=== PATIENT | male | born 1950 | race Caucasian/White ===

== ENCOUNTER 2020-07-02 14:26 | Outpatient (CLI) | payer MEDICARE, OTHER, SELFPAY ==
--- NOTE | 2020-07-02 | ECG_ITS ---
Measurements Intervals [place] Rate: 64 P: 41 [place]: 148 QRS: -9 QRSD: 96 T: 0 QT: 426 QTc: 442 Interpretive Statements SINUS RHYTHM ATRIAL AND VENTRICULAR PREMATURE COMPLEXES DELAYED PRECORDIAL R/S TRANSITION BORDERLINE ST-T WAVE ABNORMALITY- INFERIOR LEADS BASELINE ARTIFACT- I, II, AVL, AVF BORDERLINE ECG Electronically Signed On 07-02-2020 14:47:52 CDT by Marcelino Barba D.O.
== END 2020-07-02 14:27 | disposition home or self-care (01) ==
LOC: ANHLAB 14:30 → ANHCARD 14:31
PROVIDERS: PCP Physician Assistant; Visit Provider Podiatrist Foot & Ankle Surgery
DX: R03.0 Elevated blood-pressure reading, without diagnosis of hypertension (principal); R94.31 Abnormal electrocardiogram [ECG] [EKG]
CPT/HCPCS: 93005

== ENCOUNTER 2020-11-22 08:30 | Emergency (ER) | payer MEDICARE, OTHER, SELFPAY ==
--- NOTE | ~2020-11-22 | XR_ITS ---
EXAMINATION: XR hip RT min 3V w AP pelvis INDICATION: Right hip pain, initial encounter TECHNIQUE: AP view of the pelvis and two views of the right hip are obtained on five radiographs. COMPARISON: None available FINDINGS: There is a fracture of the right acetabulum which appears to extend to the sacroiliac joint . There is approximately 1.7 cm of widening fracture fragments. There is a fracture of the right infe rior pubic ramus. There are phleboliths of the pelvis. 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 IMPRESSION: 1. Right acetabular and inferior pubic ramus fractures. Reviewed, dictated and finalized at location A.
--- NOTE | ~2020-11-22 | CT_ITS ---
EXAMINATION: CT brain wo con INDICATION: Head injury COMPARISON: None TECHNIQUE: Standard unenhanced head CT. The dose-length product (DLP) was 681.00 mGy-cm. The mA was a djusted according to patient size. Iterative reconstruction technique was employed. FINDINGS: There is no acute intraparenchymal hemorrhage. No evidence of mass lesion. No evidence of a cute infarction. There is mild periventricular and subcortical hypodensity probably related to small vessel ischemic disease. There is mild prominence of the sulci and ventricles related to cerebral atr ophy. Intracranial calcified cerebral atherosclerosis is noted. There are no extra-axial collections. There is no mass effect or midline shift. The orbits are unremarkable. There is a right frontal scal p laceration. The visualized sinuses and mastoid air cells are well aerated. IMPRESSION: 1. Right frontal scalp laceration without acute intracranial abnormality. 2. Age related findings. Reviewed, dictated and finalized at location A.
[2020-11-22 08:30] VITALS: BP 103/69; PULSE 87; RESP 20; TEMP 36.8; O2SAT 100
[2020-11-22 09:32] VITALS: BP 97/63; PULSE 89; RESP 20; O2SAT 99
[2020-11-22 10:34] VITALS: BP 108/77; PULSE 89; RESP 20; O2SAT 99
--- NOTE | 2020-11-22 10:48 | ED.GENADULT ---
HPI - General Adult General Chief complaint: Fall Stated complaint: etoh, fall, laceration Time Seen by Provider: 11/22/20 10:09 Source: patient Mode of arrival: ambulatory Limitations: no limitations History of Present Illness HPI narrative: Patient presents for evaluation after experiencing a fall at approximately midnight going into today. He states he slipped on wooden steps in his home, falling approximately 8 steps. He did hit his head. No loss of consciousness. Not on blood thinners. No vomiting since episode. He had two shots of ETOH prior to the fall. Reports lacerations to the right side of the scalp and right side of the forehead. Reports pain in the right hip. At rest pain is 5 out of 10 in severity however with movement pain increases to 10/10 in severity. He is unable to bear weight or ambulate. No radicular component. No paresthesias. Related Data Home Medications Medication Instructions Recorded Confirmed bisoprolol-hydrochlorothiazide 1 tablet PO DAILY 11/22/20 11/22/20 latanoprost 1 drp EACH EYE DAILY 11/22/20 11/22/20 losartan 50 mg PO DAILY 11/22/20 11/22/20 simvastatin 20 mg PO HS 11/22/20 11/22/20 Allergies Allergy/AdvReac Type Severity Reaction Status Date / Time No Known Allergies Allergy Verified 11/22/20 08:34 Review of Systems Review of Systems: CONSTITUTIONAL: Denies fever, chills, or sweats. EYES: Denies visual changes, redness, or discharge. ENT: Denies rhinorrhea, congestion, sore throat, or otalgia. CARDIOVASCULAR: Denies chest pain, palpitations, or edema. RESPIRATORY: Denies cough or dyspnea. GASTROINTESTINAL: Denies abdominal pain, nausea, vomiting, or diarrhea. GENITOURINARY: Denies dysuria or hematuria. SKIN: Reports laceration to right side of the forehead. Reports laceration to scalp. Denies rash or itching. MUSCULOSKELETAL: Reports right hip pain and right pelvic pain. Denies back pain or myalgia. NEUROLOGIC: Denies headache, numbness, dizziness, or weakness. PSYCHIATRIC: Denies anxiety or depression. [facility] Past Medical History Medical History (Updated 11/22/20 @ 12:22 by Bud Johnson, [employer]IDENCE LEASING AGENT, ) Hyperlipidemia Hypertension Surgical History Surgical History Status post left foot surgery Family History Family History (Updated 11/22/20 @ 10:50 by Bud Johnson, [facility], ) Mother No pertinent past medical history Social History Social History Substance use: never Living arrangements: with family Gender identity (if verbalized by the patient): Male Sexual Orientation (if Verbalized by the Patient): Straight or Heterosexual Spiritual care concerns: No Exam Narrative: GENERAL: Well-appearing, well-nourished, and in no acute distress. HEAD: Normocephalic EYES: PERRLA and EOMI. ENT: Nares clear, no rhinorrhea or epistaxis. Mucous membranes moist. Oropharynx without tonsillar hypertrophy exudate or other lesions. Bilateral TMs pearly tobar nonbulging NECK: Supple. No adenopathy or masses. No carotid bruits or JVD CHEST: Clear to auscultation. No respiratory distress. No wheezes rales or rhonchi HEART: Regular rate and rhythm. No murmur heard. Normal peripheral pulses. ABDOMEN: Soft, nontender, nondistended, normal active bowel sounds. EXTREMITIES: Tenderness over right lateral hip and right anterior/posterior pelvis. Decreased active ROM of right hip. Decreased ability to tolerate passive ROM of right hip 2/2 pain. SKIN: Approximately 1.5 cm laceration to the right frontal region of the scalp and a jagged formation. Scant amount of sanguinous drainage present. Approximately 2.5 cm linear laceration to right supraorbital region-bleeding controlled with dried sanguinous drainage present. Warm, dry, no rash. NEURO: No focal deficits. Alert and oriented x3. PSYCH: Normal mood and affect. Course Course Emergency Course:
[2020-11-22] MEDS: oxyCODONE/ACETAMINOPHEN (*CRX) 5-325 MG TABLET 2 TABLET PO (11:02)
[2020-11-22] MEDS: TETANUS,DIPHTHERIA,AC PERTUSSIS ADULT (0.5 ML) BOOSTRIX IM (11:03)
--- NOTE | 2020-11-22 12:22 | PC.NURSE ---
made contact with [facility] to transfer pt to [facility]. company accepted with in route eta
[2020-11-22 12:31] VITALS: BP 92/74; PULSE 88; RESP 16; TEMP 37.2; O2SAT 98
--- NOTE | 2020-11-22 12:55 | PC.NURSE ---
angelika has arrived and crew is aware that pt is going to [facility]
[2020-11-22 12:58] VITALS: BP 92/74; PULSE 88; RESP 16; O2SAT 100
== END 2020-11-22 12:59 | disposition short-term general hospital (02) ==
PROVIDERS: Emergency Provider Nurse Practitioner; PCP Physician Assistant
DX: S01.01XA Laceration without foreign body of scalp, initial encounter (principal); S01.81XA Laceration without foreign body of other part of head, initial encounter; S32.401A Unspecified fracture of right acetabulum, initial encounter for closed fracture; S32.591A Other specified fracture of right pubis, initial encounter for closed fracture; E78.5 Hyperlipidemia, unspecified; I10 Essential (primary) hypertension; Z23 Encounter for immunization; W01.0XXA Fall on same level from slipping, tripping and stumbling without subsequent striking against object, initial encounter; Y92.009 Unspecified place in unspecified non-institutional (private) residence as the place of occurrence of the external cause
CPT/HCPCS: 12001; 70450; 73502; 90471; 90715; 99285; A9270

== ENCOUNTER 2022-03-29 15:00 | Emergency (ER) | payer MEDICARE, OTHER, SELFPAY ==
--- NOTE | ~2022-03-29 | XR_ITS ---
Portable chest x-ray Comparison: None Clinical History: PICC line placement Findings: Right-sided PICC line in place, tip in the SVC. Lungs are clear. No consolidation, effusio n, or pneumothorax. Cardiomediastinal silhouette is unremarkable. Bones and soft tissues are unremar kable. Impression: Right-sided PICC line in satisfactory position. Clear lungs. Reviewed, dictated and finalized at location . PRESS DEVELOPER Impression: Right-sided PICC line in satisfactory position. Clear lungs.
[2022-03-29 15:32] VITALS: BP 135/54; PULSE 77; RESP 20; TEMP 36.7; O2SAT 97
--- NOTE | 2022-03-29 15:46 | ED.GENADULT ---
HPI - General Adult General Chief complaint: Unspecified Stated complaint: PICC line clogged Time Seen by Provider: 03/29/22 15:34 History of Present Illness HPI narrative: Patient is a 72-year-old male presenting with a clogged PICC line. Patient states that he has a PICC line in place for IV antibiotics. States that he needs to have a hip replacement but he was found to have a joint infection so an antibiotic spacer was placed and he was discharged home last week for IV antibiotics. States that this morning when he went to flush his PICC line he was unable to so he came in for evaluation. He denies any pain or complaints at this time. Related Data Home Medications Medication Instructions Recorded Confirmed bisoprolol 2.5 1 tablet PO DAILY 11/22/20 11/22/20 mg-hydrochlorothiazide 6.25 mg tablet latanoprost 0.005 % eye drops 1 drp EACH EYE DAILY 11/22/20 11/22/20 losartan 50 mg tablet 50 mg PO DAILY 11/22/20 11/22/20 simvastatin 20 mg tablet 20 mg PO HS 11/22/20 11/22/20 Allergies Allergy/AdvReac Type Severity Reaction Status Date / Time No Known Allergies Allergy Verified 11/22/20 08:34 Review of Systems Review of Systems: All systems reviewed & are unremarkable except as noted in HPI and below PMFSH Past Medical History Medical History Hyperlipidemia Hypertension Surgical History Surgical History Status post left foot surgery Family History Family History Mother No pertinent past medical history Social History Social History Substance use: never Gender identity (if verbalized by the patient): Male Sexual Orientation (if Verbalized by the Patient): Straight or Heterosexual Spiritual care concerns: No Exam Narrative: GENERAL: Well-appearing, well-nourished, and in no acute distress. HEAD: Normocephalic, atraumatic. EYES: PERRLA and EOMI. ENT: Nares clear, no rhinorrhea or epistaxis. Mucous membranes moist. NECK: Supple. CHEST: No respiratory distress. HEART: Regular rate and rhythm. Normal peripheral pulses. ABDOMEN: Soft, nontender, nondistended, normal active bowel sounds. EXTREMITIES: Normal range of motion. No edema. single-lumen PICC line in place right upper extremity, draws blood easily, unable to flush. Radial pulses 2+ bilaterally SKIN: Warm, dry, no rash. NEURO: No focal deficits. Alert and oriented x3. PSYCH: Normal mood and affect. Course Vital Signs Vital signs: Vital Signs Temperature 98.1 F 03/29/22 15:32 Pulse Rate 77 03/29/22 15:32 Respiratory Rate 20 03/29/22 15:32 Blood Pressure 135/54 L 03/29/22 15:32 Pulse Oximetry 97 03/29/22 15:32 Temperature 98.1 F 03/29/22 15:32 Pulse Rate 77 03/29/22 15:32 Respiratory Rate 20 03/29/22 15:32 Blood Pressure 135/54 L 03/29/22 15:32 Pulse Oximetry 97 03/29/22 15:32 Medical Decision Making MDM Narrative Medical decision making narrative: Patient is a 72-year-old male presenting with a clogged PICC line. Chest x-ray obtained which shows that the right-sided PICC line is appropriately placed. Line was unable to be flushed so alteplase was used with subsequent resolution of the occlusion. Line is now flushing and drawing easily. Advised that he continue using his medications as prescribed. Recommended he follow-up closely with his surgeon. Appropriate return precautions given. Patient voiced understanding and is agreeable with plan. Discharged in stable condition. Vital Signs Vital Signs: Vital Signs Temperature 98.1 F 03/29/22 15:32 Pulse Rate 77 03/29/22 15:32 Respiratory Rate 20 03/29/22 15:32 Blood Pressure 135/54 L 03/29/22 15:32 Pulse Oximetry 97 03/29/22 15:32 Temperature 98.1 F 03/29/22 15:32 Pulse Rate 77 03/29/22
--- NOTE | 2022-03-29 16:37 | PC.NURSE ---
picc dressing changed as well as felix no success with declot.
[2022-03-29] MEDS: ALTEPLASE 2 MG VIAL (CATHFLO) IV PUSH (17:14)
--- NOTE | 2022-03-29 18:42 | PC.NURSE ---
patient's PICC line declotted per protocol. 4ml blood aspirated and discarded, flushed with 10ml NS. Dr dash
== END 2022-03-29 18:50 | disposition home or self-care (01) ==
PROVIDERS: Emergency Provider Emergency Medicine; PCP Physician Assistant
DX: T82.594A Other mechanical complication of infusion catheter, initial encounter (principal); E78.5 Hyperlipidemia, unspecified; I10 Essential (primary) hypertension
CPT/HCPCS: 71045; 96374; 99284; J2997

== ENCOUNTER 2022-04-15 13:56 | Emergency (ER) | payer MEDICARE, OTHER, SELFPAY ==
--- NOTE | ~2022-04-15 | XR_ITS ---
XR chest 1V portable DATE: 04/15/2022 14:51 INDICATION: Occluded PIC catheter; evaluate replacement TECHNIQUE: Portable upright AP chest on 04/15/2022 at 1448 hours COMPARISON: 03/29/2022 portable AP chest FINDINGS: Right upper extremity PIC catheter tip overlies the superior vena cava. Heart size appears within normal limits. No hilar or mediastinal enlargement. No pulmonary infiltrate or consolidation, pleural effusion or pulmonary vascular congestion or pneumo thorax. Degenerative spurring of the thoracic spine. IMPRESSION: Impression a PIC catheter in superior vena cava No active cardiopulmonary disease Reviewed, dictated and finalized at location B. NT DELIVERY SPECIALIST
[2022-04-15 14:03] VITALS: BP 114/56; PULSE 74; RESP 16; TEMP 36.7; O2SAT 100
--- NOTE | 2022-04-15 14:35 | ED.GENADULT ---
HPI - General Adult General Chief complaint: Unspecified Stated complaint: occluded picc line Time Seen by Provider: 04/15/22 14:11 History of Present Illness HPI narrative: Patient is a 72-year-old male presenting with PICC line complications. Patient states that he has a PICC in his right arm for IV antibiotics related to a hip infection. States that this morning he was able to give himself his antibiotics but then his home health nurse came and was unable to draw blood work. As they were unable to draw the PICC line they advised that he come to the ED for evaluation. Patient otherwise denies any complaints. Related Data Home Medications Medication Instructions Recorded Confirmed bisoprolol 2.5 1 tablet PO DAILY 11/22/20 11/22/20 mg-hydrochlorothiazide 6.25 mg tablet latanoprost 0.005 % eye drops 1 drp EACH EYE DAILY 11/22/20 11/22/20 losartan 50 mg tablet 50 mg PO DAILY 11/22/20 11/22/20 simvastatin 20 mg tablet 20 mg PO HS 11/22/20 11/22/20 Allergies Allergy/AdvReac Type Severity Reaction Status Date / Time No Known Allergies Allergy Verified 11/22/20 08:34 Review of Systems Review of Systems: All systems reviewed & are unremarkable except as noted in HPI and below PMFSH Past Medical History Medical History Hyperlipidemia Hypertension Surgical History Surgical History Status post left foot surgery Family History Family History Mother No pertinent past medical history Social History Social History Substance use: never Gender identity (if verbalized by the patient): Male Sexual Orientation (if Verbalized by the Patient): Straight or Heterosexual Spiritual care concerns: No Exam Narrative: GENERAL: Well-appearing, well-nourished, and in no acute distress. HEAD: Normocephalic, atraumatic. EYES: PERRLA and EOMI. ENT: Nares clear, no rhinorrhea or epistaxis. Mucous membranes moist. NECK: Supple. CHEST: Clear to auscultation. No respiratory distress. HEART: Regular rate and rhythm. No murmur heard. Normal peripheral pulses. ABDOMEN: Soft, nontender, nondistended, normal active bowel sounds. EXTREMITIES: PICC line in place right upper extremity with clean dressing intact SKIN: Warm, dry, no rash. NEURO: No focal deficits. Alert and oriented x3. PSYCH: Normal mood and affect. Course Vital Signs Vital signs: Vital Signs Temperature 98.0 F 04/15/22 14:03 Pulse Rate 74 04/15/22 14:03 Respiratory Rate 16 04/15/22 14:03 Blood Pressure 114/56 L 04/15/22 14:03 Pulse Oximetry 100 04/15/22 14:03 Oxygen Delivery Room Air 04/15/22 14:03 Temperature 98.0 F 04/15/22 14:03 Pulse Rate 74 04/15/22 14:03 Respiratory Rate 16 04/15/22 14:03 Blood Pressure 114/56 L 04/15/22 14:03 Pulse Oximetry 100 04/15/22 14:03 Oxygen Delivery Room Air 04/15/22 14:03 Medical Decision Making MDM Narrative Medical decision making narrative: Patient is a 72-year-old male presenting with PICC line complication. Chest x-ray confirms PICC is in the SVC. Patient's nurse was actually able to flush and draw blood from the line prior to administering Cathflo. PICC line is currently working as it should. Advised to follow-up with his orthopedic surgeon and PCP. Appropriate return precautions given. Discharged in stable condition. Vital Signs Vital Signs: Vital Signs Temperature 98.0 F 04/15/22 14:03 Pulse Rate 74 04/15/22 14:03 Respiratory Rate 16 04/15/22 14:03 Blood Pressure 114/56 L 04/15/22 14:03 Pulse Oximetry 100 04/15/22 14:03 Oxygen Delivery Room Air 04/15/22 14:03 Temperature 98.0 F 04/15/22 14:03 Pulse Rate 74 04/15/22 14:03 Respiratory Rate 16 04/15/22 14:03 Blood Pressure 114/56 L 04/15/22 14:03
--- NOTE | 2022-04-15 15:08 | PC.NURSE ---
able to flush single lumen PICC line with 10ml NS, pull back with blood return. flushed with 10ml NS. Provider aware no medication intervention needed
== END 2022-04-15 15:16 | disposition home or self-care (01) ==
PROVIDERS: Emergency Provider Emergency Medicine; PCP Physician Assistant
DX: T82.594A Other mechanical complication of infusion catheter, initial encounter (principal); T81.40XD Infection following a procedure, unspecified, subsequent encounter; M00.051 Staphylococcal arthritis, right hip; B95.8 Unspecified staphylococcus as the cause of diseases classified elsewhere; E78.5 Hyperlipidemia, unspecified; I10 Essential (primary) hypertension
CPT/HCPCS: 71045; 99283

== ENCOUNTER 2022-09-08 02:27 | Day surgery (SDC) | payer MEDICARE, OTHER, SELFPAY ==
[2022-08-19 14:55] VITALS: BMI 38.7
--- NOTE | 2022-09-07 20:00 | PM.HPGS ---
History of Present Illness History of Present Illness Consent: Risks, benefits, and alternatives have been discussed and questions answered. Patient agrees to proceed with procedure. Chief complaint: hx of colon polyps Narrative: Lang Cardona is a 72 year old male who is referred for colon cancer screening.There is a strong fm hx of colon cancer. Review of Systems Review of Systems: All systems reviewed & are unremarkable except as noted in HPI and below PMFSH Past Medical History Medical History Hyperlipidemia Hypertension Surgical History Surgical History Status post left foot surgery Family History Family History Mother No pertinent past medical history Social History Social History Smoking status: Never smoker Alcohol intake: former Substance use: never Substance use type: does not use Living arrangements: with family Gender identity (if verbalized by the patient): Male Sexual Orientation (if Verbalized by the Patient): Straight or Heterosexual Spiritual care concerns: No Meds Home Medications and Allergies Home Medications Medication Instructions Recorded Confirmed Type latanoprost 0.005 % eye drops 1 drp EACH EYE DAILY 11/22/20 09/08/22 History acetaminophen 500 mg tablet 500 mg PO BID 08/19/22 09/08/22 History atorvastatin 10 mg tablet 10 mg PO DAILY 08/19/22 09/08/22 History doxycycline monohydrate 100 mg 100 mg PO BID 08/19/22 09/08/22 History capsule Allergies Allergy/AdvReac Type Severity Reaction Status Date / Time No Known Allergies Allergy Verified 09/08/22 10:00 Exam Const: General: alert Orientation/consciousness: patient oriented x3 Resp: Auscultation: clear to auscultation bilaterally Cardio: Rhythm: regular rhythm GI: GI Palp: Yes Soft to palpation and No Tenderness to palpation present (GI) Neuro: General: patient oriented x3 Assessment and Plan Assessment and plan (1) Colon cancer screening: Code(s): Z12.11 - Encounter for screening for malignant neoplasm of colon Status: Acute Assessment and Plan: Colonoscopy with possible biopsy or polypectomy or cautery or injection of substances.
[2022-09-08 10:01] VITALS: BP 147/71; PULSE 76; RESP 17; TEMP 36; O2SAT 98; BMI 39.0
--- NOTE | 2022-09-08 10:04 | SUR.PREOP ---
Reported to Dr. Sparrow, that, Per the patient, he has been on oral doxycycline since his hip was replaced in June of 2022. Dr. Sparrow stated no IV ampicillin is needed pre op.
[2022-09-08] MEDS: LACTATED RINGERS 1,000 ML 150 ML IV CONT (10:12)
--- NOTE | 2022-09-08 10:27 | WPDANESEPPF ---
Anes - Initial Pre Proc Eval Procedure: Operation Date: 09/08/22 11:15 Proposed Procedures p Colonoscopy - Jose Eduardo Sparrow MD Date/Time: 09/08/22 10:27 Surgeon: Jose Eduardo Sparrow MD Pre Op Diagnosis: hx of colon polyps Patient Data Age: 72 Gender: M Height: 1.83 m Weight: 130.7 kg Last Vital Signs Temp 96.8 F L 09/08/22 10:01 Pulse 76 09/08/22 10:01 Resp 17 09/08/22 10:01 BP 147/71 H 09/08/22 10:01 Pulse Ox 98 09/08/22 10:01 O2 Del Method Room Air 09/08/22 10:01 Allergies Allergy/AdvReac Type Severity Reaction Status Date / Time No Known Allergies Allergy Verified 09/08/22 10:00 Home Medications Medication Instructions Recorded Confirmed Type latanoprost 0.005 % eye drops 1 drp EACH EYE DAILY 11/22/20 09/08/22 History acetaminophen 500 mg tablet 500 mg PO BID 08/19/22 09/08/22 History atorvastatin 10 mg tablet 10 mg PO DAILY 08/19/22 09/08/22 History doxycycline monohydrate 100 mg 100 mg PO BID 08/19/22 09/08/22 History capsule Patient hx anesthesia problems: none Family hx anesthesia problems: none Results Review: All pre-operative results and documents have been reviewed as part of the pre-operative evaluation. [facility] Past Medical History Medical History Hyperlipidemia Hypertension Surgical History Surgical History Status post left foot surgery Family History Family History Mother No pertinent past medical history Social History Social History Smoking status: Never smoker Alcohol intake: former Substance use: never Substance use type: does not use Living arrangements: with family Gender identity (if verbalized by the patient): Male Sexual Orientation (if Verbalized by the Patient): Straight or Heterosexual Spiritual care concerns: No Anes - Eval Final PreProcedure Day of Procedure 09/08/22 10:27 Patient weight: morbidly obese Heart: regular rate and rhythm Lungs: clear to auscultation Airway: Mallampati scale class II Neurological: alert and oriented Last oral intake: >/= 8 hours ASA classification: III Emergent: no Anesthetic plan: proceed Anesthesia type and monitoring: general GIVS and standard monitoring Results Review: All pre-operative results and documents have been reviewed as part of the pre-operative evaluation. Informed Consent: The patient's anesthetic plan and its attendant risks and benefits were discussed with the patient/family/POA. Questions were solicited and answers provided to the satisfaction of the patient/family/POA.
[2022-09-08 11:01] VITALS: BP 100/62; PULSE 75; RESP 20; O2SAT 100
[2022-09-08 11:11] VITALS: BP 119/71; PULSE 61; RESP 22; O2SAT 97
[2022-09-08 11:21] VITALS: BP 109/68; PULSE 61; RESP 21; O2SAT 99
== END 2022-09-08 11:29 | disposition home or self-care (01) ==
PROVIDERS: PCP Physician Assistant; Visit Provider Internal Medicine Gastroenterology
PROC: 0DJD8ZZ Inspection of Lower Intestinal Tract, Via Natural or Artificial Opening Endoscopic (ICD-10-PCS; CPT 45378; principal; 2022-09-08 11:15)
DX: Z12.11 Encounter for screening for malignant neoplasm of colon (principal); K57.30 Diverticulosis of large intestine without perforation or abscess without bleeding; K64.8 Other hemorrhoids; Z86.010 Personal history of colon polyps; Z80.0 Family history of malignant neoplasm of digestive organs; I10 Essential (primary) hypertension; E78.5 Hyperlipidemia, unspecified; E66.01 Morbid (severe) obesity due to excess calories; Z68.39 Body mass index [BMI] 39.0-39.9, adult
CPT/HCPCS: G0105; J2704; J7120

== ENCOUNTER 2023-04-18 11:32 | Inpatient (IN) | payer MEDICARE, OTHER, SELFPAY ==
[2023-04-18] VITALS (29 sets, daily range): BP systolic 129–144; BP diastolic 62–112; PULSE 86–170; RESP 15–32; TEMP 36.8–37.6; O2SAT 95–99; BMI 41.8
--- NOTE | ~2023-04-18 | XR_ITS ---
EXAMINATION: XR chest 1V portable DATE: 04/18/2023 12:18 INDICATION: Supraventricular tachycardia. TECHNIQUE: A single frontal view of the chest was obtained. COMPARISON: Chest single view 04/15/2022 FINDINGS: There is no pneumonia, pleural effusion, or pneumothorax. The heart size is normal. IMPRESSION: 1. No acute cardiopulmonary disease. Reviewed, dictated and finalized at location A. ING ASSISTANT
--- NOTE | 2023-04-18 11:33 | ECG_ITS ---
Measurements Intervals [place] Rate: 169 P: [place]: 0 QRS: -17 QRSD: 102 T: 63 QT: 273 QTc: 458 Interpretive Statements SUPRAVENTRICULAR TACHYCARDIA DELAYED PRECORDIAL R/S TRANSITION ABNORMAL ECG COMPARED TO ECG 07/02/2020 14:42:32 SUPRAVENTRICULAR TACHYCARDIA NOW PRESENT Electronically Signed On 04-18-2023 11:43:16 SPEEDBOAT DRIVER by Marcelino Barba D.O.
--- NOTE | 2023-04-18 11:46 | ECG_ITS ---
Rate SD QRSd QT QTc P QRS T Severity 133 0 88 303 452 -11 53 No Severity Defined ATRIAL FLUTTER/TACHYCARDIA WITH RAPID VENTRICULAR RESPONSE DELAYED PRECORDIAL R/S TRANSITION BASELINE ARTIFACT- I, II, III, AVL, AVF ABNORMAL ECG COMPARED TO ECG 04/18/2023 11:38:38 ATRIAL FLUTTER NOW PRESENT Electronically Signed On 04-18-2023 14:55:55 MARKET ANALYSIS DIRECTOR by Marcelino HARRY
--- NOTE | 2023-04-18 11:47 | ED.CHESTPAIN ---
HPI - Chest Pain General Chief Complaint: Chest Pain Stated Complaint: Chest pain Time Seen by Provider: 04/18/23 11:42 Source: patient History of Present Illness HPI narrative: 73 YEARS OLD WHITE MALE DROVE HIMSELF TO THE EMERGENCY ROOM BECAUSE OF LEFT CHEST TIGHTNESS AND PRESSURE FEELING WITH SHORTNESS OF BREATH STARTED 2 WEEKS AGO, STEADY, WORSE WITH EXERTION. HE DENIES ANY FEVER, CHILLS, NAUSEA, VOMITING. HISTORY OF HYPERLIPIDEMIA, DOES NOT SMOKE, DRINKS DAILY. Related Data Home Medications Medication Instructions Recorded Confirmed latanoprost 0.005 % eye drops 1 drp EACH EYE HS 11/22/20 04/18/23 atorvastatin 10 mg tablet 10 mg PO HS 08/19/22 04/18/23 timolol maleate 1 drp EACH EYE Q12H 04/18/23 04/18/23 Allergies Allergy/AdvReac Type Severity Reaction Status Date / Time No Known Allergies Allergy Verified 09/08/22 10:00 [facility] Past Medical History Medical History Hyperlipidemia Hypertension Surgical History Surgical History Status post left foot surgery Family History Family History (Updated 04/18/23 @ 16:23 by Felisha London RN) Mother No pertinent past medical history Cerebrovascular accident Father No pertinent past medical history Cerebrovascular accident Father No problems noted. Social History Social History Smoking status: Never smoker Alcohol intake: current Drinks per week: 21 Substance use: current Substance use type: does not use Do You Feel Safe in your Home?: Yes Lack of Transportation: YES Lack of Food: Never True Current Housing: I Have Housing Concerned About Future Housing: No Difficulty Paying Gas/Electric Bills: No Difficulty Paying for Meds: No Currently Unemployed: No Education: Bachelor's Degree Difficulty w/ Childcare or Family Care: No Living arrangements: with family Gender identity (if verbalized by the patient): Male Sexual Orientation (if Verbalized by the Patient): Straight or Heterosexual Spiritual care concerns: No Course Consultations Consultation #1: KIMBERLY Shaver CARDIOLOGY ON-CALL Date: 04/18/23 Time: 13:38 Vital Signs Vital signs: Vital Signs Temperature 36.8 C 04/18/23 11:40 Pulse Rate 170 H 04/18/23 11:40 Respiratory Rate 22 H 04/18/23 11:40 Blood Pressure 140/106 H 04/18/23 11:40 Pulse Oximetry 97 04/18/23 11:40 Temperature 37.6 C H 04/18/23 15:00 Pulse Rate 130 H 04/18/23 18:00 Respiratory Rate 18 04/18/23 15:00 Blood Pressure 144/68 H 04/18/23 15:00 Pulse Oximetry 97 04/18/23 15:00 Oxygen Delivery Room Air 04/18/23 16:00 MDM - Chest Pain Lab Data 04/18/23 11:51 04/18/23 11:51 Labs: Lab Results 04/18/23 04/18/23 Range/Units 11:46 11:51 WBC 6.6 (4.5-10.0) K/mm3 RBC 4.50 L (4.6-6.20) M/mm3 Hgb 14.0 (14.0-18.0) g/dL Hct 44.3 (42.0-52.0) % MCV 98.4 (80-100) fl MCH 31.1 (26-34) pg MCHC 31.6 L (32-36) g/dl RDW 13.5 (11.5-14.5) % Plt Count 195 (150-375) k/mm3 MPV 8.9 (7.4-10.4) fl Immature Gran % (Auto) Not Reportable Neut % (Auto) Not Reportable Lymph % (Auto) Not Reportable [place] % (Auto) Not Reportable Eos % (Auto) Not Reportable Baso % (Auto) Not Reportable Lymph # (Auto) Not Reportable [place] # (Auto) Not Reportable Eos # (Auto) Not Reportable Baso # (Auto) Not Reportable Abs Immat Gran (auto) Not Reportable Absolute Neuts (auto) Not Reportable Absolute Nucleated RBC Not Reportable Total Counted 100 Neutrophils % (Manual) 95 H (46-73) % Band Neutrophils % 1 (0-6) % Lymphocytes % (Manual) 1.0 L (18-44) % Monocytes % (Manual) 2 L (3-9) % Eosinophils % (Manual) 1 (0-4) % Nucleated RBC % Not Reportable Abs Neuts (Manual) 6.33 (1.3-
[2023-04-18 11:56] LABS: Hematocrit 44.3 % (42.0-52.0); Mean Corpuscular HGB Conc 31.6 g/dl (32-36); Mean Corpuscular Hemoglobin 31.1 pg (26-34); Mean Corpuscular Volume 98.4 fl (80-100); Mean Platelet Volume 8.9 fl (7.4-10.4); Platelet Count Result 195 k/mm3 (150-375); Red Cell Distribution Width 13.5 % (11.5-14.5); White Blood Count 6.6 K/mm3 (4.5-10.0)
[2023-04-18] MEDS: ADENOSINE IV SOLN 6 MG/2 ML VIAL IV PUSH (11:58)
[2023-04-18] MEDS: ADENOSINE IV SOLN 6 MG/2 ML VIAL 12 MG IV PUSH (11:58)
[2023-04-18] MEDS: dilTIAZem HCl INJ 25 MG/5 ML VIAL 10 MG IV PUSH (12:03)
[2023-04-18] MEDS: ASPIRIN 81 MG CHEWABLE TABLET 324 MG PO (12:04)
[2023-04-18 12:06] LABS: Alanine Aminotransferase 19 U/L (6-50); Alkaline Phosphatase 103 U/L (38-126); Anion Gap 7 mmol/L (8-16); Aspartate Amino Transferase 20 U/L (17-59); Bilirubin,Total 1.4 mg/dL (0.2-1.3); Blood Urea Nitrogen 25 mg/dL (9-20); Calcium 8.5 mg/dL (8.4-10.2); Carbon Dioxide 22 mmol/L (22-30); Chloride 106 mmol/L (98-107); Estimated CRCL calculation 61 ml/min; Estimated Glomerular Filt Rate 50; Glucose 111 mg/dL (65-110); Lipase 122 U/L (23-300); Potassium 4.8 mmol/L (3.4-5.0); Sodium 135 mmol/L (137-145)
[2023-04-18 12:10] LABS: INR 0.9; Partial Thromboplastin Time 24.3 SECONDS (22.3-36.8); Prothrombin Time 12.6 Seconds (11.1-14.7)
[2023-04-18 12:14] LABS: Band Neutrophils Percent 1 % (0-6); Eosinophils Absolute Manual 0.06 K/mm3 (0.02-0.5); Eosinophils Percent Manual 1 % (0-4); Lymphocytes Absolute Manual 0.06 K/mm3 (1.1-4.5); Monocytes Absolute Manual 0.13 K/mm3 (0.1-0.90); Monocytes Percent Manual 2 % (3-9); Neutrophils Absolute Manual 6.33 K/mm3 (1.3-6.7); Neutrophils Percent Manual 95 % (46-73); Platelet Estimate Adequate (Adequate); Schistocytes None Seen (NORMAL); Total Cells Counted 100
[2023-04-18 12:18] LABS: Troponin I < 0.012 ng/mL (0.000-0.034)
[2023-04-18] MEDS: dilTIAZem HCl INJ 25 MG/5 ML VIAL 15 MG IV PUSH (12:36)
[2023-04-18] MEDS: dilTIAZem 100 MG/100 ML 100 MG/100 ML BAG IV CONT (13:12)
[2023-04-18] MEDS: ENOXAPARIN 100 MG/ML SYRINGE SUB-Q (13:57)
[2023-04-18] MEDS: ENOXAPARIN 40 MG/0.4 ML SYRINGE SUB-Q (13:57)
--- NOTE | 2023-04-18 14:32 | ECG_ITS ---
Measurements Intervals [place] Rate: 84 P: 258 [place]: 200 QRS: -18 QRSD: 105 T: 18 QT: 386 QTc: 458 Interpretive Statements ATRIAL FLUTTER WITH NORMAL VENTRICULAR RESPONSE POSSIBLE LEFT ATRIAL ENLARGEMENT ABNORMAL ECG COMPARED TO ECG 04/18/2023 14:40:34 HEART RATE HAS DECREASED Electronically Signed On 04-19-2023 6:53:53 YARDAGE CONTROL OPERATOR FORMING by Marcelino Barba D.O.
[2023-04-18 15:13] LABS: Troponin I < 0.012 ng/mL (0.000-0.034)
--- NOTE | 2023-04-18 17:06 | ADMGEN ---
This patient, Lang Cardona, was admitted to IMU Room 206-01. Patient/family oriented to hospital policies and general routines including ID bracelet, bed and alarms, visiting hours, pain management, procedures, bathroom and other care routines, personal items, smoking policy, room service/diet, and visiting hours. Information on how to activate the Rapid Response Team has been discussed. Patient/Family are encouraged to report perceived risks to care and to ask questions if they do not understand what they are told or what they should do.
[2023-04-18 17:48] LABS: Troponin I < 0.012 ng/mL (0.000-0.034)
[2023-04-18] MEDS: dilTIAZem HCl INJ 25 MG/5 ML VIAL 20 MG IV PUSH (18:29)
--- NOTE | 2023-04-18 18:29 | PM.IMHP ---
H&P: HPI History of Present Illness Date/Time: 04/18/23 18:29 Chief Complaint: SOB, CP Narrative: 73-year-old male presents here with chest pain and shortness of breath with past medical history of HTN, HLD, and glaucoma. Patient reports intermittent chest pain and shortness of breath for the past 2 weeks. States it has been intermittent but worsening in severity and length of symptoms has been increasing to where it is near constant. Chest pain has been midsternal, now left-sided. Described as pressure. Originally contributed chest pain to acid reflux like symptoms, however did not try medication at home. Denies any recent cough, congestion, fever, body aches, chills. Patient reports that he had a hip replacement 2 years ago at [facility], believes he may have been worked up for some sort of heart irregularity. But it is unclear what kind of cardiac workup he had completed, not on any medication currently. At arrival to the ED, initial rhythm showing SVT and confirmed by EKG. Given adenosine 6 mg and 12 mg. Able to convert to slower rhythm, however patient was still in a dysrhythmia - AFlutter RVR. Started on diltiazem IVP and gtt. Labs showed creatinine of 1.4, unclear if chronic or new. Patient did not report a history of CKD, negative troponin x3, and normal TSH. CXR also unremarkable. Patient continues to have ongoing chest pain, reported that it actually had been worsening over the last hour (as of 18:30). Chest pain remains new left-sided to midsternal and is described as pressure without radiation. Improved with O2 placement at 2 L nasal cannula and head of bed was raised. Review of Systems Review of Systems: All systems reviewed & are unremarkable except as noted in HPI and below [facility] Past Medical History Medical History Hyperlipidemia Hypertension Surgical History Surgical History History of hip surgery x4 -original injury due to fall with hip and pubic bone in fractures. Later became infected and had to undergo hardware removal. Then later had to have left total hip replacement. Status post left foot surgery Family History Family History Mother No pertinent past medical history Cerebrovascular accident Father No pertinent past medical history Cerebrovascular accident Father No problems noted. Social History Social History Smoking status: Never smoker Alcohol intake: current Drinks per week: 21 Substance use: current Substance use type: does not use Do You Feel Safe in your Home?: Yes Lack of Transportation: YES Lack of Food: Never True Current Housing: I Have Housing Concerned About Future Housing: No Difficulty Paying Gas/Electric Bills: No Difficulty Paying for Meds: No Currently Unemployed: No Education: Bachelor's Degree Difficulty w/ Childcare or Family Care: No Living arrangements: with family Gender identity (if verbalized by the patient): Male Sexual Orientation (if Verbalized by the Patient): Straight or Heterosexual Spiritual care concerns: No Meds Home Medications and Allergies Home Medications Medication Instructions Recorded Confirmed Type latanoprost 0.005 % eye drops 1 drp EACH EYE HS 11/22/20 04/18/23 History atorvastatin 10 mg tablet 10 mg PO HS 08/19/22 04/18/23 History timolol maleate 1 drp EACH EYE Q12H 04/18/23 04/18/23 History Allergies Allergy/AdvReac Type Severity Reaction Status Date / Time No Known Allergies Allergy Verified 09/08/22 10:00 Vital Signs Vital Signs - 24 hr 04/18/23 11:40 04/18/23 11:45 04/18/23 12:04 Temperature 98.2 F Pulse Rate 170 H 168 H 169 H Respiratory Rate 22 H 17 Blood Pressure 140/106 H Pulse Oximetry 97 96 Oxygen Delivery 04/18/23 12:
[2023-04-18] MEDS: dilTIAZem 100 MG/100 ML 100 MG/100 ML BAG 15 MG IV CONT (18:30)
--- NOTE | 2023-04-18 18:39 | PC.NURSE ---
Pt complaining of increasing chest pain. HR was in 120s-130s. BP 135/62. Pt placed on 2L O2. Raquel Kirkpatrick NP at bedside to assess. Orders received to give 20 mg cardizem bolus and increase cardizem drip to 15 mL/hr.
[2023-04-18] MEDS: PANTOPRAZOLE SODIUM IV 40 MG VIAL IV PUSH (21:06)
[2023-04-18] MEDS: LATANOPROST 0.005% OP SOLN 2.5 ML BTL 1 DROP EACH EYE (21:06)
[2023-04-18] MEDS: ATORVASTATIN 10 MG TABLET PO (21:06)
[2023-04-18] MEDS: TIMOLOL MALEATE 0.5% OP SOLN 5 ML BOTTLE 1 DROP EACH EYE (22:30)
[2023-04-19] VITALS (18 sets, daily range): BP systolic 122–142; BP diastolic 64–92; PULSE 58–85; RESP 14–18; TEMP 36.3–37.2; O2SAT 96–98
--- NOTE | 2023-04-19 | ECHO_ITS ---
Patient Info Name: Lang Cardona Age: 73 years : 1950 Gender: Male Ht: 72 in Wt: 295 lbs BSA: 2.66 m2 HR: 119 bpm BP: 117 / 66 mmHg Heart Rhythm: Atrial Flutter Technical Quality: Good Exam Date: 04/19/2023 10:34 AM Exam Location: Echo Lab Patient Status: Inpatient Admit Date: 04/18/2023 Staff Ordering Physician: Raquel Kirkpatrick APRN Window Glass Cutter Off: Judy Hines RDCS Attending Provider: Neeraj Metz MD Referring Physician: Casimiro AGRAWAL; Exam Type: CA echo dop color flow w con Study Info Indications - NEW A FLUTTER/SVT Complete two-dimensional, color flow and Doppler transthoracic echocardiogram is performed with contrast to opacify the left ventricle and to improve the deliniation of the left ventricle endocardial borders. Contrast/Agitated Saline Contrast/Ag. Saline: Definity Amount: 3.00 ml Summary 1. Technically difficult study with limited views. Definity contrast administered. 2. Left ventricular chamber dimension is normal. 3. Left ventricular systolic function is normal, estimated at 65-70%. 4. There is moderately increased left ventricular wall thickness. 5. The left ventricular diastolic function is abnormal. 6. Left atrial chamber dimension is mild to moderately enlarged. 7. There is no aortic valve stenosis. 8. There is trace mitral valve regurgitation. 9. There is trace tricuspid valve regurgitation. 10. No pulmonary hypertension, estimated pulmonary arterial systolic pressure is 19 mmHg. Left Ventricle Left ventricular chamber dimension is normal. Left ventricular systolic function is normal, estimated at 65-70%. There is moderately increased left ventricular wall thickness. The left ventricular diastolic function is abnormal. Technically difficult study with limited views. Definity contrast administered. Right Ventricle Right ventricular chamber dimension is normal. Right ventricular systolic function is normal. Left Atria Left atrial chamber dimension is mild to moderately enlarged. Right Atria Right atrial chamber dimension is mildly enlarged. Aortic Valve The aortic valve is not well visualized. There is mild aortic valve sclerosis. There is no aortic valve stenosis. There is no aortic valve regurgitation. Pulmonic Valve The pulmonic valve is not well visualized. Mitral Valve The mitral valve has normal leaflets. There is trace mitral valve regurgitation. The mitral valve annulus is moderately calcified. Tricuspid Valve The tricuspid valve leaflets are normal. There is trace tricuspid valve regurgitation. No pulmonary hypertension, estimated pulmonary arterial systolic pressure is 19 mmHg. Pericardium/Pleural The pericardium appears normal. There is trivial pericardial effusion. Aorta The aortic root size at the sinus of Valsalva is normal. There is mild aortic atherosclerosis. Left Ventricular Outflow Tract Name Value Normal LVOT 2D LVOT Diameter 2.15 cm LVOT Doppler LVOT Peak Gradient 1 mmHg LVOT Mean Gradient 1 mmHg LVOT VTI 14.17 cm LVOT VTI/AV VTI Ratio 0.73
--- NOTE | 2023-04-19 00:53 | ECG_ITS ---
Rate MN QRSd QT QTc P QRS T Severity 84 200 105 386 458 258 -18 18 No Severity Defined ATRIAL FLUTTER WITH NORMAL VENTRICULAR RESPONSE POSSIBLE LEFT ATRIAL ENLARGEMENT ABNORMAL ECG COMPARED TO ECG 04/18/2023 14:40:34 HEART RATE HAS DECREASED Electronically Signed On 04-19-2023 6:53:53 VENUE COORDINATOR by Marcelino HARRY
[2023-04-19] MEDS: dilTIAZem 100 MG/100 ML 100 MG/100 ML BAG 15 MG IV CONT (01:03)
[2023-04-19] MEDS: ENOXAPARIN 40 MG/0.4 ML SYRINGE SUB-Q (02:53)
[2023-04-19] MEDS: ENOXAPARIN 100 MG/ML SYRINGE SUB-Q (02:53)
[2023-04-19 05:15] LABS: Basophils Percent Auto 0.5 % (0.2-1.2); Eosinophils Absolute Auto 0.1 K/mm3 (0-0.3); Eosinophils Percent Auto 1.9 % (0-4.4); Hematocrit 37.7 % (42.0-52.0); Hemoglobin 12.1 g/dL (14.0-18.0); Immature Granulocyte Absolute 0.04 K/mm3 (0.00-0.031); Immature Granulocyte Percent A 1.1 % (0-0.5); Lymphocytes Absolute Auto 0.29 K/mm3 (0.9-3.2); Lymphocytes Percent Auto 7.8 % (18.3-44.2); Mean Corpuscular HGB Conc 32.1 g/dl (32-36); Mean Corpuscular Hemoglobin 31.9 pg (26-34); Mean Corpuscular Volume 99.5 fl (80-100); Mean Platelet Volume 9.8 fl (7.4-10.4); Monocytes Absolute Auto 0.3 K/mm3 (0.1-0.6); Monocytes Percent Auto 8.6 % (2.6-8.5); Neutrophils Percent Auto 80.1 % (45.5-73.1); Platelet Count Result 177 k/mm3 (150-375); Red Blood Count 3.79 M/mm3 (4.6-6.20); Red Cell Distribution Width 13.9 % (11.5-14.5); White Blood Count 3.7 K/mm3 (4.5-10.0)
[2023-04-19 05:26] LABS: Anion Gap 8 mmol/L (8-16); Blood Urea Nitrogen 21 mg/dL (9-20); Carbon Dioxide 20 mmol/L (22-30); Chloride 105 mmol/L (98-107); Estimated CRCL calculation 67 ml/min; Estimated Glomerular Filt Rate 54; Glucose 101 mg/dL (65-110); Sodium 133 mmol/L (137-145)
[2023-04-19] MEDS: PANTOPRAZOLE SODIUM IV 40 MG VIAL IV PUSH ×2 (09:12→20:52)
[2023-04-19] MEDS: TIMOLOL MALEATE 0.5% OP SOLN 5 ML BOTTLE 1 DROP EACH EYE ×2 (09:12→20:52)
[2023-04-19] MEDS: PERFLUTREN LIPID MICROSPHERES 1.5 ML VIAL DILUTED TO 10 ML TOTAL VOLUME IV PUSH (10:50)
--- NOTE | 2023-04-19 11:03 | ECG_ITS ---
Measurements Intervals [place] Rate: 82 P: AL: 0 QRS: -3 QRSD: 113 T: 42 QT: 380 QTc: 445 Interpretive Statements ATRIAL FLUTTER WITH NORMAL VENTRICULAR RESPONSE INTRAVENTRICULAR CONDUCTION DELAY ABNORMAL ECG COMPARED TO ECG 04/19/2023 00:53:38 INTRAVENTRICULAR CONDUCTION DELAY NOW PRESENT Electronically Signed On 04-19-2023 14:07:33 DRILLING FOREMAN by Marcelino Barba D.O.
--- NOTE | 2023-04-19 11:13 | IVDEFINITY ---
Prior to administration of IV Definity the patient was educated on the risks and benefits of the imaging enhancing agent including potential adverse side effects. The patient verbalized understanding. Allergies were verified. No exclusion criteria were identified and at least one of the following inclusion criteria were met: 1) physician request, 2) patient technically difficult to image (per the [place] [employer]chocardi[employer] guidelines of two or more segments not discernable within the apical view), or 3) questionable left ventricular function. ?
--- NOTE | 2023-04-19 11:33 | PM.CNCAR ---
Assessment and Plan Assessment and plan (1) Atrial flutter with rapid ventricular response: Code(s): I48.92 - Unspecified atrial flutter Status: Acute Assessment and Plan: Patient presents in a different rhythm than the atrial flutter currently present. His heart rate is controlled he is relatively asymptomatic. We discussed option clinically rate versus rhythm control. We discussed the embolic stroke risk related to atrial fibrillation and atrial flutter as well as management strategy including medications, systemic anticoagulation versus aspirin and for rhythm control strategy BELEN guided cardioversion in attempt to restore sinus rhythm. Duration of his atrial flutter is unknown but must presume this has been present for approximately 2 weeks. CHADS2 Vasc score 2 and which systemic anticoagulation warranted. We discussed the balance of bleeding versus stroke risk. He agrees with plan of care and systemic anticoagulation. Will transition to Eliquis 5 mg twice daily beginning this afternoon and discontinue enoxaparin. Begin metoprolol tartrate 25 mg twice daily. Discontinue diltiazem infusion. 2D echocardiogram pending. Will review with recommendation to follow as appropriate. Discussed about the risk of bleeding and potential catastrophic intracerebral hemorrhage falls, head injury. At present he does not have clinical contraindication to systemic anticoagulation. Discussed the risks versus benefits of transesophageal echocardiogram and cardioversion as well failure all questions answered to their satisfaction. They verbalized understanding and agreed to proceed with plan of care. NPO after midnight with anticipation for BELEN guided cardioversion to restore sinus rhythm if he remains in atrial flutter. Anticipate discharge to home tomorrow as patient wishes to have this taken care of prior to discharge. We discussed extensive workup that other considerations in this regard as well as ablation options if appropriate. Will observe response to therapy with regards AV wallace blocking agents. (2) SVT (supraventricular tachycardia): Code(s): I47.10 - Supraventricular tachycardia, unspecified Status: Acute Assessment and Plan: Patient presented in a no complex supraventricular tachycardia at 169 beats per minute which is not consistent with atrial flutter rate more was atrial flutter appreciated on that ECG. However, after adenosine he converted from that SVT to atrial flutter which he is curious nonetheless evident by ECG. We discussed this at length in the unusual nature of this presentation. Regardless we will initiate AV wallace blocking agent with metoprolol 25 mg twice daily. He require systemic anticoagulation due to presence of atrial flutter but not technically for his presenting SVT. Monitor electrolytes, renal function. TSH normal 1.890. Patient denies symptoms suggestive clinically significant BRIAN other than snoring as his reports. (3) Chest pain: Code(s): R07.9 - Chest pain, unspecified Status: Acute Assessment and Plan: Resolved with resolution of his SVT. Serial troponins negative x3. No evidence for acute myocardial infarction and or ischemia. Patient denied anginal symptoms preceding onset of his symptoms 2 weeks ago. Risk factors for atherosclerosis including age, hypertension, hyperlipidemia. Further discussion based on clinical course and response to therapy with regards to ischemic workup. I do not plan for patient undergo ischemic workup at this time certainly as an inpatient. (4) Hypertension: Code(s): I10 - Essential (primary) hypertension Status: Acute Assessment and Plan: BP mildly elevated presentation reasonably controlled at present. Metoprolol 25 mg twice daily will be initiated. Monitor BP response. (5) Hyperlipidemia: Code(s): E78.5 - Hyperlipidemia, unspecified Status: Acute Assessment and Plan: Continue atorvastat
--- NOTE | 2023-04-19 13:27 | PM.IMPN ---
Progress Note: A&P Assessment and Plan (1) SVT (supraventricular tachycardia): Code(s): I47.10 - Supraventricular tachycardia, unspecified Status: Acute (2) Atrial flutter with rapid ventricular response: Code(s): I48.92 - Unspecified atrial flutter Status: Acute (3) Hyperlipidemia: Code(s): E78.5 - Hyperlipidemia, unspecified Status: Acute (4) Hypertension: Code(s): I10 - Essential (primary) hypertension Status: Acute (5) Obesity: Code(s): E66.9 - Obesity, unspecified Status: Acute Plan Patient heart rate well controlled. Seen by Cardiology. Patient had a ChadS2 score of 2 Patient starting on Eliquis 5 mg twice a day. Begin metoprolol 25 mg twice a day. Discontinued diltiazem infusion. 2D echo is pending. Discussed the benefit of tea and cardioversion. NPO over midnight anticipated BELEN guided cardioversion to normal sinus rhythm in the morning. Serial troponins negative. No evidence of acute MN. Risk factor of atherosclerosis, hypertension, hyperlipidemia Continue atorvastatin 10 mg q.day. Obesity life style counseling and sleep apnea workup Subjective Date/time seen: 04/19/23 13:27 Interval history: Patient denies any chest pain or shortness for breath still in atrial fibrillation on a Cardizem drip Review of Systems Review of Systems: All systems reviewed & are unremarkable except as noted in HPI and below Exam Narrative: GENERAL: Well appearing, well-nourished, non-toxic, in no acute distress. HEAD: Normocephalic, atraumatic. NECK: Supple. No adenopathy, no masses. RESPIRATORY: Airway patent, respirations nonlabored. Clear to auscultation bilaterally, no rales, rhonchi, wheezing. CARDIOVASCULAR: IRRegular rate and rhythm without murmurs, rubs, or gallops. Peripheral pulses 2+ and equal bilaterally. ABDOMINAL: Soft, nontender, nondistended, no hepatosplenomegaly. Normoactive BS. MUSCULOSKELETAL: no Epigastric and no hypochondrial tenderness SKIN: Warm, dry, normal color. No rashes. NEURO: A&O X3. Moves all extremities PSYCHIATRIC: Appropriate mood and affect. Normal interaction. Objective Data Vital Signs Vital Signs: Vital Signs - 24 hr 04/18/23 13:30 04/18/23 13:45 04/18/23 14:00 Temperature Pulse Rate 115 H 115 H 117 H Respiratory Rate 17 22 H 22 H Blood Pressure Pulse Oximetry 96 95 96 Oxygen Delivery 04/18/23 14:15 04/18/23 14:30 04/18/23 14:45 Temperature Pulse Rate 121 H 90 116 H Respiratory Rate 32 H 21 H 20 Blood Pressure Pulse Oximetry 97 98 97 Oxygen Delivery 04/18/23 15:00 04/18/23 15:00 04/18/23 16:00 Temperature 37.6 C H Pulse Rate 98 118 H 128 H Respiratory Rate 21 H 18 Blood Pressure 142/88 H 144/68 H Pulse Oximetry 97 97 Oxygen Delivery 04/18/23 16:00 04/18/23 16:00 04/18/23 18:00 Temperature Pulse Rate 132 H 130 H Respiratory Rate Blood Pressure Pulse Oximetry Oxygen Delivery Room Air 04/18/23 18:30 04/18/23 20:50 04/18/23 20:00 Temperature 37.5 C Pulse Rate 99 116 H Respiratory Rate 18 Blood Pressure 139/62 Pulse Oximetry 96 Oxygen Delivery Room Air 04/18/23 20:00 04/18/23 22:00 04/18/23 22:14 Temperature Pulse Rate 122 H 86 99 Respiratory Rate Blood Pressure Pulse Oximetry Oxygen Delivery 04/18/23 23:10 04/19/23 00:00 04/19/23 00:00 Temperature 37.3 C Pulse Rate 86 85 Respiratory Rate 18 Blood Pressure 130/67 Pulse Oximetry 96 Oxygen Delivery Room Air 04/19/23 01:03 04/19/23 03:32 04/19/23 04:00 Temperature 37.2 C Pulse Rate 84 83 Respiratory Rate 18 Blood Pressure 129/67 Pulse Oximetry 96 Oxygen Delivery Room Air 04/19/23 04:00 04/19/23 06:10 04/19/23 08:24 Temperature 36.6 C Pulse Rate 83 58 L 84 Respiratory Rate 14 Blood Pressure 122/64 Pulse Oximetry 97 Oxygen Delivery 04/19/23 08:00 04/19/23 10:00 04/19/23
[2023-04-19] MEDS: METOPROLOL TARTRATE 25 MG TABLET PO ×2 (13:59→20:52)
[2023-04-19] MEDS: APIXABAN 5 MG TABLET PO (16:42)
[2023-04-19] MEDS: LATANOPROST 0.005% OP SOLN 2.5 ML BTL 1 DROP EACH EYE (20:51)
[2023-04-19] MEDS: ATORVASTATIN 10 MG TABLET PO (20:52)
[2023-04-20] VITALS (23 sets, daily range): BP systolic 85–152; BP diastolic 56–120; PULSE 51–85; RESP 10–21; TEMP 36–36.8; O2SAT 94–100
--- NOTE | 2023-04-20 04:01 | PCRCNOTE ---
Pt removed Apnealink at 23:30 and did not call to RN untill 03:00 to report it was off of him.
[2023-04-20 08:58] LABS: Hematocrit 40.4 % (42.0-52.0); Hemoglobin 12.6 g/dL (14.0-18.0); Mean Corpuscular HGB Conc 31.2 g/dl (32-36); Mean Corpuscular Hemoglobin 30.9 pg (26-34); Mean Platelet Volume 9.1 fl (7.4-10.4); Platelet Count Result 178 k/mm3 (150-375); Red Blood Count 4.08 M/mm3 (4.6-6.20); Red Cell Distribution Width 13.7 % (11.5-14.5); White Blood Count 3.5 K/mm3 (4.5-10.0)
[2023-04-20 09:08] LABS: Anion Gap 4 mmol/L (8-16); Blood Urea Nitrogen 17 mg/dL (9-20); Calcium 8.4 mg/dL (8.4-10.2); Carbon Dioxide 27 mmol/L (22-30); Chloride 104 mmol/L (98-107); Estimated CRCL calculation 61 ml/min; Estimated Glomerular Filt Rate 50; Glucose 106 mg/dL (65-110); Magnesium 1.9 mg/dL (1.6-2.3); Potassium 4.3 mmol/L (3.4-5.0); Sodium 135 mmol/L (137-145)
[2023-04-20] MEDS: PANTOPRAZOLE SODIUM IV 40 MG VIAL IV PUSH (10:02)
[2023-04-20] MEDS: METOPROLOL TARTRATE 25 MG TABLET PO (10:02)
[2023-04-20] MEDS: APIXABAN 5 MG TABLET PO (10:02)
[2023-04-20] MEDS: TIMOLOL MALEATE 0.5% OP SOLN 5 ML BOTTLE 1 DROP EACH EYE (10:03)
--- NOTE | 2023-04-20 10:23 | WPDMODSED ---
Moderate Sedation Note-Pt Data Patient Data Diagnosis: Atrial flutter Present Complaint: none Procedure to be performed/Plan: transesophageal echocardiogram guided elective electrical cardioversion Allergies Allergy/AdvReac Type Severity Reaction Status Date / Time No Known Allergies Allergy Verified 09/08/22 10:00 Home Medications Medication Instructions Recorded Confirmed Type latanoprost 0.005 % eye drops 1 drp EACH EYE 11/22/20 04/18/23 History atorvastatin 10 mg tablet 10 mg PO HS 08/19/22 04/18/23 History timolol maleate 1 drp EACH EYE Q12H 04/18/23 04/18/23 History Current Medications: Active Medications Acetaminophen (Acetaminophen 325 Mg Tablet) 650 mg PO Q4H PRN PRN Reason: Mild Pain (1-3) or Fever Apixaban (Apixaban 5 Mg Tablet) 5 mg PO Q12HR [facility] Last Admin: 04/20/23 10:02 Dose: 5 mg Atorvastatin Calcium (Atorvastatin 10 Mg Tablet) 10 mg PO [facility] Last Admin: 04/19/23 20:52 Dose: 10 mg Fentanyl Citrate (Fentanyl Citrate Inj (*Crx) 100 Mcg/2 Ml Vial) 100 mcg IV PUSH ONCE PRN PRN Reason: Cardioversion/BELEN Sodium Chloride (Normal Saline Iv) 1,000 mls @ 30 mls/hr IV CONT .Q24H [facility] Last Admin: 04/19/23 13:57 Dose: Not Given Latanoprost (Latanoprost 0.005% Op Soln 2.5 Ml Btl) 1 drop EACH EYE [facility] Last Admin: 04/19/23 20:51 Dose: 1 drop Metoprolol Tartrate (Metoprolol Tartrate 25 Mg Tablet) 25 mg PO Q12HR [facility] Last Admin: 04/20/23 10:02 Dose: 25 mg Midazolam HCl (Midazolam Hcl (*Crx) 2 Mg/2 Ml Vial) 2 mg IV PUSH Q5M PRN PRN Reason: Cardioversion/BELEN Pantoprazole Sodium (Pantoprazole Sodium Iv 40 Mg Vial) 40 mg IV PUSH Q12HR [facility] Last Admin: 04/20/23 10:02 Dose: 40 mg Timolol Maleate (Timolol Maleate 0.5% Op Soln 5 Ml Bottle) 1 drop EACH EYE Q12H [facility] Stop: 05/18/23 20:59 Last Admin: 04/20/23 10:03 Dose: 1 drop Sedation/Anesthesia: No previous sedation/anesthesia problems (including family history). PMFSH Past Medical History Medical History Hyperlipidemia Hypertension Surgical History Surgical History History of hip surgery x4 -original injury due to fall with hip and pubic bone in fractures. Later became infected and had to undergo hardware removal. Then later had to have left total hip replacement. Status post left foot surgery Family History Family History Mother No pertinent past medical history Cerebrovascular accident Father No pertinent past medical history Cerebrovascular accident Father No problems noted. Social History Social History Smoking status: Never smoker Alcohol intake: current Drinks per week: 21 Substance use: current Substance use type: does not use Do You Feel Safe in your Home?: Yes Lack of Transportation: YES Lack of Food: Never True Current Housing: I Have Housing Concerned About Future Housing: No Difficulty Paying Gas/Electric Bills: No Difficulty Paying for Meds: No Currently Unemployed: No Education: Bachelor's Degree Difficulty w/ Childcare or Family Care: No Living arrangements: with family Gender identity (if verbalized by the patient): Male Sexual Orientation (if Verbalized by the Patient): Straight or Heterosexual Spiritual care concerns: No Mod Sed Physical Exam Physical Exam Pre Procedural Exam: Normal: Appearance, Eyes, Ears, Nose, Neck ( supple, normal range of motion), Throat ( posterior hypopharynx clear, nonerythematous), Airway ( normal anatomy no obstruction), Lungs ( clear to auscultation bilaterally), Heart Size, Heart Rate, Neuro Exam, Abdomen ( obese) and Skin and Variation: Heart Rhythm ( regularly irregular) and Extremities ( 1+ bilateral lower extremity edema) Hours since solid foods: 12 Hours since liquid intake: 12 Mal
--- NOTE | 2023-04-20 10:25 | WPDTECDV ---
BELEN with Cardioversion Date of procedure: 04/20/23 Procedure Type: transesophageal echocardiogram guided elective electrical cardioversion Diagnosis: atrial flutter Indications: atrial flutter Description of Procedure: Brief history present illness: Patient is a pleasant 73-year-old male with a history of hypertension, hyperlipidemia admitted with fatigue, chest pain shortness of breath found to be in SVT followed by atrial flutter with variable AV block which has been persistent referred for transesophageal echocardiogram-guided elective electrical cardioversion in attempt to restore sinus rhythm. Procedure in detail: After verbal and written informed consent was obtained the patient risks, benefits, and alternatives explained in detail the patient agreed to proceed with the plan of care as outlined above. Patient was evaluated at bedside in the [facility] procedure room. On examination, neck was supple with normal range of motion, no restrictions to opening of the oral cavity, jaw angle and posterior hypopharynx was clear. Lungs were clear to auscultation. Patient was placed in appropriate 30 to 45 degree angle in a supine, slight left lateral decubitus position. Patient was monitored throughout the study with telemetry, oxygen saturation, end-tidal CO2 monitoring, blood pressure, heart rate, and respirations. Anterior and posterior defibrillator pads placed in the appropriate positions. The posterior hypopharynx was then locally anesthetized using repeated administration of Hurricaine spray as well as gargled viscous lidocaine. After local anesthetic of the posterior hypopharynx was achieved and the oral bite block placed, moderate sedation was administered. Through the oral bite block, the transesophageal echocardiogram probe was advanced into the posterior hypopharynx and into the esophagus easily and without complication. Multiple, multiplanar echocardiographic images were obtained in multiple standard re-projections. Pulsed wave, continuous-wave, and color-flow Doppler were utilized in conjunction with this study. At the conclusion of the study, the transesophageal echocardiogram probe was removed easily and without complication. Patient tolerated the procedure well without difficulty. Patient was in atrial flutter throughout the study. Sedation: Moderate Sedation/Anesthesia administration: Patient denied previous intolerance or complications with anesthesia/sedation. Please see sedation note for documentation of the pre-procedure physical examination. As noted above, after adequate local anesthesia of the posterior hypopharynx was achieved, a total of 5mg intravenous Versed and a total of 100mcg intravenous Fentanyl in multiple divided doses was utilized for moderate sedation. Sedation start time was 1048 and end time was 1112 for a total of 24 minutes [id number] intra-procedure time. Sedation was administered by a qualified observer Flory Zambrano RN under my supervision with intra-procedure [id number] observation and management throughout the entirety of the procedure. There were no other issues or complications and patient tolerated the procedure well and sedation protocol well and I was present for the entirety. Findings: FINDINGS: LEFT VENTRICLE: Size and systolic function were within normal limits without wall motion abnormalities with ejection fraction of 55%. RIGHT VENTRICLE: Size and systolic function within normal limits. LEFT ATRIUM: Moderately enlarged. No spontaneous contrast or thrombus. RIGHT ATRIUM: Mildly enlarged, faint spontaneous contrast without thrombus. INTERATRIAL SEPTUM: Interatrial septum is anatomically normal with evidence of Left to Right shunt with color-flow Doppler suggestive of small atrial septal defect with faint [id number] shunt with Valsalva only upon injection of agitated saline. MITRAL VALVE: Mitral valve is anatomically normal mildly thickened with preserve
--- NOTE | 2023-04-20 12:27 | ECG_ITS ---
Measurements Intervals [place] Rate: 82 P: [place]: 0 QRS: -14 QRSD: 109 T: 22 QT: 389 QTc: 455 Interpretive Statements ATRIAL FLUTTER WITH NORMAL VENTRICULAR RESPONSE BASELINE ARTIFACT- I, II, AVR, AVL ABNORMAL ECG COMPARED TO ECG 04/19/2023 14:05:20 NO SIGNIFICANT CHANGES Electronically Signed On 04-20-2023 11:08:49 [employer] BUILDER OPERATOR by Marcelino Barba D.O.
--- NOTE | 2023-04-20 12:27 | ECG_ITS ---
Measurements Intervals [place] Rate: 57 P: 87 [place]: 162 QRS: -20 QRSD: 101 T: -16 QT: 430 QTc: 420 Interpretive Statements SINUS BRADYCARDIA POSSIBLE LEFT ATRIAL ENLARGEMENT MINIMAL Q WAVES- HIGH LATERAL LEADS BORDERLINE T WAVE ABNORMALITY- INFERIOR LEADS BORDERLINE ECG COMPARED TO ECG 04/20/2023 10:12:46 SINUS BRADYCARDIA NOW PRESENT Electronically Signed On 04-20-2023 11:47:16 OCCUPATIONAL NURSE by Marcelino Barba D.O.
--- NOTE | 2023-04-20 14:20 | PM.DS ---
DS: Admitting Diagnosis Discharge Date 04/20/2023 Admitting Diagnosis Atrial fibrillation, SVT DS: Discharge Diagnosis Discharge Diagnosis (1) SVT (supraventricular tachycardia): Code(s): I47.10 - Supraventricular tachycardia, unspecified Status: Acute (2) Atrial flutter with rapid ventricular response: Code(s): I48.92 - Unspecified atrial flutter Status: Acute (3) Hyperlipidemia: Code(s): E78.5 - Hyperlipidemia, unspecified Status: Acute (4) Hypertension: Code(s): I10 - Essential (primary) hypertension Status: Acute (5) Chest pain: Code(s): R07.9 - Chest pain, unspecified Status: Acute DS: Summary Hospital Course Hospital Course: 73-year-old male came to the hospital with chest pain followed by SVT and atrial fibrillation. No nausea no vomiting hematemesis. Patient was seen by Cardiology Eliquis 5 mg twice a day was started patient also placed on metoprolol 25 b.i.d.. Initially patient was cardioverted with diltiazem drip changed to oral diltiazem. 2D echo was evaluated. Serial troponins were done which were negative patient was continued on atorvastatin 10 mg q.day. patient was cardioverted to sinus rhythm and being discharged home to followed with Cardiology Status at Discharge Functional status at discharge: independent ambulation Time Spent with Patient Time attestation: Total time spent providing and/or coordinating discharge services: Exam Narrative: GENERAL: Well appearing, no acute distress. HEAD: Normocephalic, atraumatic. NECK: Supple. No adenopathy, no masses. RESPIRATORY: respirations nonlabored. , no rales, wheezing. CARDIOVASCULAR: Regular rate and rhythm without murmurs, . Peripheral pulses 2+ and equal bilaterally. ABDOMINAL: Soft, nontender, nondistended, no hepatosplenomegaly. Normoactive BS. MUSCULOSKELETAL: no Epigastric and no hypochondrial tenderness SKIN: Warm, dry, NEURO: A&O X3. Moves all extremities DS: Data Data Completed and Pending Labs on day of discharge: Labs from last 24 hours 04/20/23 08:44 WBC 3.5 L RBC 4.08 L Hgb 12.6 L Hct 40.4 L MCV 99.0 MCH 30.9 MCHC 31.2 L RDW 13.7 Plt Count 178 MPV 9.1 Sodium 135 L Potassium 4.3 Chloride 104 Carbon Dioxide 27 Anion Gap 4 L BUN 17 Creatinine 1.40 H Estim Creat Clear Calc 61 Estimated GFR 50 L Glucose 106 Calcium 8.4 Magnesium 1.9 Discharge Plan Discharge Consulting providers: Lori Varma Discharging Clinician: J Luis Hodges Patient Disposition: Home, Self-Care Activity: as tolerated Diet: heart healthy Patient Instructions: Antibiotic Form, Diltiazem (By injection) Stand Alone Forms: General Discharge Information Follow-up/Referrals: Karthik Le MD [Physician] - 1 Week Lori Varma MD [Physician] - 2 Weeks Discharge Medications: New Eliquis 5 mg Tablet 5 mg PO Q12HR 30 Days Qty: 60 0RF metoprolol tartrate 25 mg Tablet 25 mg PO Q12HR 30 Days Qty: 60 0RF Continued latanoprost 0.005 % Drops 1 drp EACH EYE HS atorvastatin 10 mg tablet 10 mg PO HS timolol maleate 1 drp EACH EYE Q12H Date of admission: 04/19/23 14:38 Primary Care Provider: DheerajMayra Admitting Provider: Neeraj Metz Attending physician on admission: Neerja Metz Condition: Improved [facility] Discharge Hospital Discharge: 230[address] Hosp D/C 30 Min
== END 2023-04-20 14:58 | disposition home or self-care (01) | DRG 309 ==
LOC: ANHED 12:29 → ANHIMU 14:44
PROVIDERS: Internal Medicine Cardiovascular Disease; Student in an Organized Health Care Education/Training Program; Admitting Provider Internal Medicine; Emergency Provider Emergency Medicine; PCP Physician Assistant; Visit Provider Internal Medicine
PROC: 5A2204Z Restoration of Cardiac Rhythm, Single (ICD-10-PCS; principal; 2023-04-20 10:30)
PROC: 5A2204Z Restoration of Cardiac Rhythm, Single (ICD-10-PCS; CPT 93312; 2023-04-20 10:30)
DX: I48.92 Unspecified atrial flutter (principal); Z68.41 Body mass index [BMI] 40.0-44.9, adult; I47.10 Supraventricular tachycardia, unspecified; E66.01 Morbid (severe) obesity due to excess calories; E78.5 Hyperlipidemia, unspecified; H40.9 Unspecified glaucoma; I10 Essential (primary) hypertension; Z96.642 Presence of left artificial hip joint
CPT/HCPCS: 36415; 71045; 80048; 80053; 83690; 83735; 84443; 84484; 85025; 85027; 85610; 85730; 92960; 93005; 93312; 93320; 93325; 96365; 96366; 96372; 96375; 96376; 99285; A9270; C8929; C9113; G0378; J0153; J1650; J2250; J3010; J7040; Q9957

== ENCOUNTER 2023-10-16 09:56 | Outpatient (CLI) | payer MEDICARE, OTHER, SELFPAY | END 2023-10-16 09:57 | disposition home or self-care (01) | LOC: ANHAUDIO 09:56 | PROVIDERS: PCP Physician Assistant; Visit Provider Physician Assistant | DX: H90.3 Sensorineural hearing loss, bilateral (principal) | CPT/HCPCS: 92557; 92567 ==

== ENCOUNTER 2023-11-20 04:03 | Day surgery (SDC) | payer MEDICARE, OTHER, SELFPAY ==
[2023-11-08 09:33] VITALS: BMI 38.0
--- NOTE | 2023-11-08 10:34 | PC.NURSE ---
Spoke with _patient_ regarding medication _ELIQUIS. Pt. verbalizes understanding that the last dose of ELIQUIS is to be taken on 11/17/2023 and the Endoscopist will instruct them when to restart after the procedure.
[2023-11-20 14:01] VITALS: BP 160/85; PULSE 75; RESP 19; TEMP 36.2; O2SAT 98
[2023-11-20] MEDS: LACTATED RINGERS 1,000 ML 150 ML IV CONT (14:10)
--- NOTE | 2023-11-20 14:34 | WPDANESEPPF ---
Anes - Initial Pre Proc Eval Procedure: Operation Date: 11/20/23 15:30 Proposed Procedures p Flexible Sigmoidoscopy - Melvin Mantilla MD Date/Time: 11/20/23 14:34 Surgeon: Melvin Mantilla MD Pre Op Diagnosis: Full incontinence of feces Patient Data Age: 73 Gender: M Height: 1.83 m Weight: 127.8 kg Last Vital Signs Temp 97.1 F L 11/20/23 14:01 Pulse 75 11/20/23 14:01 Resp 19 11/20/23 14:01 BP 160/85 H 11/20/23 14:01 Pulse Ox 98 11/20/23 14:01 O2 Del Method Room Air 11/20/23 14:01 Allergies Allergy/AdvReac Type Severity Reaction Status Date / Time No Known Allergies Allergy Verified 11/20/23 13:59 Home Medications Medication Instructions Recorded Confirmed Type latanoprost 0.005 % eye drops 1 drp EACH EYE HS 11/22/20 11/08/23 History atorvastatin 10 mg tablet 10 mg PO HS 08/19/22 11/08/23 History timolol maleate 1 drp EACH EYE Q12H 04/18/23 11/08/23 History apixaban 5 mg tablet (Eliquis) 5 mg PO Q12HR 30 days #60 tabs 04/20/23 11/20/23 Rx metoprolol tartrate 25 mg tablet 25 mg PO Q12HR 30 days #60 tabs 04/20/23 11/08/23 Rx losartan 100 mg tablet 100 mg PO DAILY 09/11/23 11/08/23 History hydrocortisone acetate 25 mg 25 mg RECTAL BID PRN Hemorrhoids 11/08/23 11/08/23 History rectal suppository (Anusol-HC) polyethylene glycol 3350 17 17 g PO DAILY 11/08/23 11/08/23 History gram/dose oral powder (Miralax) psyllium husk 3.4 gram/5.4 gram 1 tbsp PO DAILY PRN Constipation 11/08/23 11/08/23 History oral powder (Metamucil) Patient hx anesthesia problems: none Family hx anesthesia problems: none Results Review: All pre-operative results and documents have been reviewed as part of the pre-operative evaluation. [facility] Past Medical History Medical History (Updated 10/25/23 @ 10:51 by AUTUMN Hernandez) Blood in stool Constipation Fecal incontinence Hyperlipidemia Hypertension Surgical History Surgical History History of hip surgery x4 -original injury due to fall with hip and pubic bone in fractures. Later became infected and had to undergo hardware removal. Then later had to have left total hip replacement. Status post left foot surgery Family History Family History Mother No pertinent past medical history Cerebrovascular accident Father No pertinent past medical history Cerebrovascular accident Father No problems noted. Social History Social History Smoking status: Never smoker Alcohol intake: current Drinks per week: 3 Alcohol use details: GLASSES [place] Substance use: never Substance use type: does not use Do You Feel Safe in your Home?: Yes Lack of Transportation: YES Lack of Food: Never True Current Housing: I Have Housing Concerned About Future Housing: No Difficulty Paying Gas/Electric Bills: No Difficulty Paying for Meds: No Currently Unemployed: No Education: Bachelor's Degree Difficulty w/ Childcare or Family Care: No Living arrangements: with family Gender identity (if verbalized by the patient): Male Sexual Orientation (if Verbalized by the Patient): Straight or Heterosexual Spiritual care concerns: No Anes - Eval Final PreProcedure Day of Procedure 11/20/23 14:34 Patient weight: obese Heart: regular rate and rhythm Lungs: clear to auscultation Airway: Mallampati scale class II Neurological: alert and oriented Last oral intake: >/= 8 hours ASA classification: III Emergent: no Anesthetic plan: proceed Anesthesia type and monitoring: general GIVS and standard monitoring Results Review: All pre-operative results and documents have been reviewed as part of the pre-operative evaluation. Informed Consent: The patient's anesthetic plan and its attendant risks and benefits were discussed with
--- NOTE | 2023-11-20 14:35 | WPDHPUPDATE1 ---
History and Physical Update Update Date/Time: 11/20/23 14:35 History and Physical has been reviewed, including an updated exam of the patient. There are NO changes in the patient's condition. Risks, benefits, and alternatives have been discussed and questions answered. Patient agrees to proceed with procedure.
[2023-11-20 14:50] VITALS: BP 117/65; PULSE 67; RESP 25; O2SAT 98
[2023-11-20 15:00] VITALS: BP 135/70; PULSE 65; RESP 20; O2SAT 98
[2023-11-20 15:10] VITALS: BP 147/73; PULSE 65; RESP 20; O2SAT 98
== END 2023-11-20 15:19 | disposition home or self-care (01) ==
PROVIDERS: PCP Physician Assistant; Referring Provider Nurse Practitioner Family; Visit Provider Internal Medicine Gastroenterology
PROC: 0DJD8ZZ Inspection of Lower Intestinal Tract, Via Natural or Artificial Opening Endoscopic (ICD-10-PCS; CPT 45330; principal; 2023-11-20 15:30)
DX: D12.3 Benign neoplasm of transverse colon (principal); K64.8 Other hemorrhoids; I10 Essential (primary) hypertension; E78.5 Hyperlipidemia, unspecified; E66.9 Obesity, unspecified; Z68.38 Body mass index [BMI] 38.0-38.9, adult; Z79.01 Long term (current) use of anticoagulants; Z98.890 Other specified postprocedural states; Z86.79 Personal history of other diseases of the circulatory system; Z82.49 Family history of ischemic heart disease and other diseases of the circulatory system
CPT/HCPCS: 45338; 45331; 88305; J2704; J7120

== ENCOUNTER 2023-12-24 11:25 | Emergency (ER) | payer MEDICARE, OTHER, SELFPAY ==
[2023-12-24] VITALS (15 sets, daily range): BP systolic 128–164; BP diastolic 80–101; PULSE 81–122; RESP 14–20; TEMP 36.3–36.8; O2SAT 93–100
--- NOTE | ~2023-12-24 | XR_ITS ---
EXAMINATION: XR chest 2V DATE: 12/24/2023 12:19 INDICATION: Chest pain and shortness of breath TECHNIQUE: PA and lateral views of the chest were obtained. COMPARISON: Chest radiograph dated 04/18/2023 FINDINGS: The lungs are clear with no focal airspace opacities, pulmonary edema, pleural effusion or pneumothor ax. The cardiomediastinal silhouette is normal. Visualized bones and soft tissues are unremarkable. IMPRESSION: 1. No acute cardiopulmonary disease. Reviewed, dictated and finalized at location A.
--- NOTE | 2023-12-24 11:27 | ECG_ITS ---
Test Date: 2023-12-24 11:31:11 Measurements Intervals [place] Rate: 124 P: 0 [place]: 0 QRS: -27 QRSD: 109 T: 8 QT: 325 QTc: 468 Interpretive Statements ATRIAL FLUTTER WITH RAPID VENTRICULAR RESPONSE WITH ABERRANT CONDUCTION OR VENTRICULAR PREMATURE COMPLEXES BORDERLINE R WAVE PROGRESSION, ANTERIOR LEADS BASELINE ARTIFACT- I, II, III, AVR, AVL, AVF, V1 ABNORMAL ECG No previous ECG available for comparison Electronically Signed On 12-24-2023 15:20:46 CDT by Marcelino Barba D.O.
[2023-12-24 12:10] LABS: Basophils Percent Auto 0.9 % (0.2-1.2); Eosinophils Absolute Auto 0.1 K/mm3 (0-0.3); Hemoglobin 12.6 g/dL (14.0-18.0); Immature Granulocyte Absolute 0.06 K/mm3 (0.00-0.031); Immature Granulocyte Percent A 1.3 % (0-0.5); Lymphocytes Absolute Auto 0.59 K/mm3 (0.9-3.2); Lymphocytes Percent Auto 13.3 % (18.3-44.2); Mean Corpuscular HGB Conc 33.2 g/dl (32-36); Mean Corpuscular Hemoglobin 33.6 pg (26-34); Mean Corpuscular Volume 101.3 fl (80-100); Mean Platelet Volume 8.8 fl (7.4-10.4); Monocytes Absolute Auto 0.3 K/mm3 (0.1-0.6); Monocytes Percent Auto 7.6 % (2.6-8.5); Neutrophils Absolute Auto 3.3 K/mm3 (1.3-6.7); Neutrophils Percent Auto 74.9 % (45.5-73.1); Platelet Count Result 214 k/mm3 (150-375); Red Blood Count 3.75 M/mm3 (4.6-6.20); Red Cell Distribution Width 13.8 % (11.5-14.5); White Blood Count 4.5 K/mm3 (4.5-10.0)
[2023-12-24 12:19] LABS: Alanine Aminotransferase 23 U/L (6-50); Albumin Level 3.8 g/dL (3.5-5.1); Alkaline Phosphatase 93 U/L (38-126); Anion Gap 1 mmol/L (4-12); Aspartate Amino Transferase 22 U/L (17-59); Bilirubin,Total 0.8 mg/dL (0.2-1.3); Blood Urea Nitrogen 23 mg/dL (9-20); Carbon Dioxide 29 mmol/L (22-30); Chloride 98 mmol/L (98-107); Estimated Glomerular Filt Rate 54; Glucose 89 mg/dL (65-110); Lipase 176 U/L (23-300); Potassium 4.7 mmol/L (3.4-5.0); Sodium 128 mmol/L (137-145)
[2023-12-24 12:20] LABS: INR 1.1; Prothrombin Time 14.8 Seconds (11.1-14.7)
[2023-12-24 12:21] LABS: Partial Thromboplastin Time 28.5 Seconds (22.3-36.8)
[2023-12-24 12:31] LABS: Troponin I < 0.012 ng/mL (0.000-0.034)
--- NOTE | 2023-12-24 13:09 | ED.CHESTPAIN ---
HPI - Chest Pain General Chief Complaint: Chest Pain Stated Complaint: chest tightness, HTN Time Seen by Provider: 12/24/23 12:21 History of Present Illness HPI narrative: 73-year-old male with a history of hyperlipidemia, hypertension, AFib on Eliquis presenting with chest tightness. States that he has had tightness in the center of his chest for the last 2-3 weeks. States that it has been getting worse and associated with shortness of breath. States that he sometimes can hear himself wheezing. Denies smoking or history of COPD. He checked his blood pressure yesterday and it was 180 systolic so he became concerned and came in for evaluation. No leg swelling. No fevers. Does have a bit of a cough and he complains of sinus congestion. No further complaints. Related Data Home Medications Medication Instructions Recorded Confirmed latanoprost 0.005 % eye drops 1 drp EACH EYE HS 11/22/20 11/08/23 atorvastatin 10 mg tablet 10 mg PO HS 08/19/22 11/08/23 timolol maleate 1 drp EACH EYE Q12H 04/18/23 11/08/23 losartan 100 mg tablet 100 mg PO DAILY 09/11/23 11/08/23 hydrocortisone acetate 25 mg 25 mg RECTAL BID PRN Hemorrhoids 11/08/23 11/08/23 rectal suppository (Anusol-HC) polyethylene glycol 3350 17 17 g PO DAILY 11/08/23 11/08/23 gram/dose oral powder (Miralax) psyllium husk 3.4 gram/5.4 gram 1 tbsp PO DAILY PRN Constipation 11/08/23 11/08/23 oral powder (Metamucil) Allergies Allergy/AdvReac Type Severity Reaction Status Date / Time No Known Allergies Allergy Verified 12/24/23 11:33 Review of Systems Review of Systems: All systems reviewed & are unremarkable except as noted in HPI and below PMFSH Past Medical History Medical History Blood in stool Constipation Fecal incontinence Hyperlipidemia Hypertension Surgical History Surgical History History of hip surgery x4 -original injury due to fall with hip and pubic bone in fractures. Later became infected and had to undergo hardware removal. Then later had to have left total hip replacement. Status post left foot surgery Family History Family History Mother No pertinent past medical history Cerebrovascular accident Father No pertinent past medical history Cerebrovascular accident Father No problems noted. Social History Social History Smoking status: Never smoker Alcohol intake: current Drinks per week: 3 Alcohol use details: GLASSES [place] Substance use: never Substance use type: does not use Do You Feel Safe in your Home?: Yes Lack of Transportation: YES Lack of Food: Never True Current Housing: I Have Housing Concerned About Future Housing: No Difficulty Paying Gas/Electric Bills: No Difficulty Paying for Meds: No Currently Unemployed: No Education: Bachelor's Degree Difficulty w/ Childcare or Family Care: No Living arrangements: with family Gender identity (if verbalized by the patient): Male Sexual Orientation (if Verbalized by the Patient): Straight or Heterosexual Spiritual care concerns: No Exam Narrative: GENERAL: Well-appearing, no acute distress, pleasant cooperative HEAD: Normocephalic, atraumatic. EYES: PERRLA and EOMI. ENT: Nares clear, no rhinorrhea or epistaxis. Mucous membranes moist. NECK: Supple. CHEST: No respiratory distress. Scattered wheezing bilaterally HEART: Tachycardic, irregular rhythm ABDOMEN: Soft, nontender, nondistended EXTREMITIES: Normal range of motion. Trace pitting edema bilateral ankles SKIN: Warm, dry, no rash. NEURO: No focal deficits. Alert and oriented x3. PSYCH: Normal mood and affect. Course Vital Signs Vital signs: Vital Signs Temperature 97.4 F L 12/24/23 11:26 Pulse Rate 104 H 12/24/23
[2023-12-24] MEDS: ALBUTEROL SULFATE NEB 2.5 MG/3 ML INH 5 MG INHALATION (13:25)
[2023-12-24] MEDS: IPRATROPIUM BR 0.02% INH SOLN 0.5 MG/2.5 ML VIAL INHALATION (13:25)
[2023-12-24] MEDS: SODIUM CHLORIDE 0.9% IV 1,000 ML 999 ML IV CONT (13:38)
[2023-12-24 13:55] LABS: Influenza A QL RT-PCR Negative (Negative); Influenza B QL RT-PCR Negative (Negative); RSV RNA, RT-PCR Negative (Negative); SARS-CoV-2 RNA PCR Negative (Negative)
[2023-12-24] MEDS: dilTIAZem HCl INJ 25 MG/5 ML VIAL 10 MG IV PUSH (14:38)
--- NOTE | 2023-12-24 14:45 | PC.NURSE ---
ERP notified of rate decrease after cardizem bolus and wants cardizem drip held at this time.
--- NOTE | 2023-12-24 14:46 | ECG_ITS ---
Test Date: 2023-12-24 14:50:10 Measurements Intervals [place] Rate: 81 P: 0 [place]: 0 QRS: 202 QRSD: 102 T: 186 QT: 390 QTc: 454 Interpretive Statements ATRIAL FLUTTER LIMB LEAD REVERSAL DELAYED PRECORDIAL R/S TRANSITION ABNORMAL ECG Compared to ECG 12/24/2023 11:31:11 HEART RATE HAS DECREASED Electronically Signed On 12-24-2023 15:32:30 CDT by Marcelino Barba D.O.
[2023-12-24 15:30] LABS: Troponin I < 0.012 ng/mL (0.000-0.034)
== END 2023-12-24 16:35 | disposition home or self-care (01) ==
PROVIDERS: Emergency Medicine; Emergency Provider Emergency Medicine; PCP Physician Assistant
DX: I48.92 Unspecified atrial flutter (principal); J40 Bronchitis, not specified as acute or chronic; Z20.822 Contact with and (suspected) exposure to COVID-19; E78.5 Hyperlipidemia, unspecified; I10 Essential (primary) hypertension
CPT/HCPCS: 36415; 71046; 80053; 83690; 84484; 85025; 85610; 85730; 87637; 93005; 94640; 96361; 96374; 99284; J7030

== ENCOUNTER 2024-02-09 03:02 | Day surgery (SDC) | payer MEDICARE, OTHER, SELFPAY ==
[2024-02-08 11:06] VITALS: BMI 40.8
--- NOTE | 2024-02-09 07:30 | ECG_ITS ---
Test Date: 2024-02-09 11:36:46 Measurements Intervals [place] Rate: 80 P: 47 [place]: 166 QRS: -15 QRSD: 90 T: 9 QT: 388 QTc: 448 Interpretive Statements SINUS RHYTHM BORDERLINE T WAVE ABNORMALITY- INFERIOR LEADS BASELINE ARTIFACT- I, II, III, AVR, AVL, AVF, V1-V6 BORDERLINE ECG Compared to ECG 02/09/2024 07:39:17 Atrial flutter no longer present Ventricular premature complex(es) no longer present Incomplete right bundle-branch block no longer present Electronically Signed On 02-09-2024 12:25:05 CDT by Marcelino Barba D.O.
--- NOTE | 2024-02-09 07:30 | ECG_ITS ---
Test Date: 2024-02-09 07:39:17 Measurements Intervals [place] Rate: 101 P: 0 [place]: 0 QRS: -28 QRSD: 102 T: 3 QT: 352 QTc: 457 Interpretive Statements ATRIAL FLUTTER/TACHYCARDIA WITH RAPID VENTRICULAR RESPONSE WITH VENTRICULAR PREMATURE COMPLEXES INCOMPLETE RIGHT BUNDLE BRANCH BLOCK BASELINE ARTIFACT- I, II, AVR, AVL, V1-V2 ABNORMAL ECG Compared to ECG 12/24/2023 14:50:10 HEART RATE HAS INCREASED Electronically Signed On 02-09-2024 08:12:29 CDT by Marcelino Barba D.O.
[2024-02-09 07:58] VITALS: BP 140/85; PULSE 105; RESP 19; TEMP 37; O2SAT 94; BMI 40.8
--- NOTE | 2024-02-09 08:51 | WPDHPUPDATE1 ---
History and Physical Update Update Date/Time: 02/09/24 08:51 History and Physical has been reviewed, including an updated exam of the patient. There are NO changes in the patient's condition. Risks, benefits, and alternatives have been discussed and questions answered. Patient agrees to proceed with procedure.
[2024-02-09] MEDS: APIXABAN 5 MG TABLET PO (09:38)
--- NOTE | 2024-02-09 11:32 | P.PNAN_ITS ---
Anes - Initial Pre Proc Eval Procedure: Operation Date: 02/09/24 09:00 Proposed Procedures p Electrical Cardioversion - Lori Varma MD Date/Time: 02/09/24 11:32 Surgeon: Davi Gilbert MD Pre Op Diagnosis: a-fib Patient Data Age: 73 Gender: M Height: 1.83 m Weight: 136.8 kg Last Vital Signs Temp 37.0 C 02/09/24 07:58 Pulse 105 H 02/09/24 07:58 Resp 19 02/09/24 07:58 BP 140/85 02/09/24 07:58 Pulse Ox 94 02/09/24 07:58 O2 Del Method Room Air 02/09/24 07:58 Allergies Allergy/AdvReac Type Severity Reaction Status Date / Time No Known Allergies Allergy Verified 02/09/24 07:56 Home Medications Medication Instructions Recorded Confirmed Type latanoprost 0.005 % eye drops 1 drp EACH EYE HS 11/22/20 02/08/24 History atorvastatin 10 mg tablet 10 mg PO HS 08/19/22 02/08/24 History timolol maleate 1 drp EACH EYE Q12H 04/18/23 02/08/24 History apixaban 5 mg tablet (Eliquis) 5 mg PO Q12HR 30 days #60 tabs 04/20/23 02/08/24 Rx metoprolol tartrate 25 mg tablet 25 mg PO Q12HR 30 days #60 tabs 04/20/23 02/08/24 Rx losartan 100 mg tablet 100 mg PO DAILY 09/11/23 02/08/24 History polyethylene glycol 3350 17 17 g PO DAILY 11/08/23 02/08/24 History gram/dose oral powder (Miralax) psyllium husk 3.4 gram/5.4 gram 1 tbsp PO DAILY PRN Constipation 11/08/23 02/08/24 History oral powder (Metamucil) furosemide 40 mg tablet 40 mg PO DAILY #30 tabs 02/09/24 Rx Laboratory Tests 02/09/24 07:52 Sodium Pending Potassium Pending Chloride Pending Carbon Dioxide Pending Anion Gap Pending BUN Pending Creatinine Pending Estim Creat Clear Calc Pending Estimated GFR Pending Glucose Pending Calcium Pending Magnesium Pending Patient hx anesthesia problems: none Family hx anesthesia problems: none Results Review: All pre-operative results and documents have been reviewed as part of the pre- operative evaluation. FOR[facility], [facility] Past Medical History Medical History Blood in stool Constipation Fecal incontinence Hyperlipidemia Hypertension Surgical History Surgical History History of hip surgery x4 -original injury due to fall with hip and pubic bone in fractures. Later became infected and had to undergo hardware removal. Then later had to have left total hip replacement. Status post left foot surgery Family History Family History Mother No pertinent past medical history Cerebrovascular accident Father No pertinent past medical history Cerebrovascular accident Father No problems noted. Social History Social History Smoking status: Former smoker Tobacco type: cigarettes Second hand tobacco smoke exposure: No Alcohol intake: current Drinks per week: 20 Alcohol use details: GLASSES [place] Substance use: never Substance use type: does not use Do You Feel Safe in your Home?: Yes Lack of Transportation: YES Lack of Food: Never True Current Housing: I Have Housing Concerned About Future Housing: No Difficulty Paying Gas/Electric Bills: No Difficulty Paying for Meds: No Currently Unemployed: No Education: Bachelor's Degree Difficulty w/ Childcare or Family Care: No Living arrangements: with family Gender identity (if verbalized by the patient): Male Sexual Orientation (if Verbalized by the Patient): Straight or Heterosexual Spiritual care concerns: No Anes - Eval Final PreProcedure Day of Procedure 02/09/24 11:32 Patient weight: morbidly obese Heart: irregular rhythm Lungs: clear to auscultation Airway: Mallampati scale class II Neurological: alert and oriented Last oral intake: >/= 8 hours ASA classification: III Emergent: no Anesthetic plan: proceed Anesthesia type and monitoring: general GIVS and standard monitoring Results Review: All pre-operative results and documents have been reviewed as part of the pre- operative evaluation. Informed Consent: The patient's anesthetic plan and its attendant risks and benefits were discussed with the patient/family/POA. Questions were solicited and answers provided to the satisfaction of the patient/family/POA.
--- NOTE | 2024-02-09 11:43 | P.PCNCVR_ITS ---
Cardioversion Cardioversion Date of procedure: 02/09/24 Procedure: Synchronized electrical cardioversion Pre-op diagnosis: Atrial flutter Post-op diagnosis: Other (Successful cardioversion to sinus rhythm. ) Indications: Atrial flutter Description of procedure: Written informed consent obtained. Defibrillator pads placed in an anterior-post erior position. Time out performed by NEIL Tejada. Sedation was administered by Anesthesia team. Once patient was adequately sedated, synchronized electrical cardioversion was performed with 1 shock at 250 joules, which successfully restored sinus rhythm. Patient's hemodynamics and respiratory status was monitored throughout the procedure. No periprocedural complications. Procedure start time: 10:30 Procedure end time: 10:36 Sedation: Sedation was administered by Anesthesia team Findings: Successful synchronized electrical cardioversion to sinus rhythm with 1 shock at 250 joules. Conclusion: Successful synchronized electrical cardioversion to sinus rhythm with 1 shock at 250 joules.
[2024-02-09 11:47] VITALS: BP 123/91; PULSE 102; RESP 14; TEMP 36.7; O2SAT 94
[2024-02-09 12:00] VITALS: BP 137/99; PULSE 78; RESP 20; O2SAT 94
[2024-02-09 12:15] VITALS: BP 150/95; PULSE 80; RESP 15; O2SAT 96
[2024-02-09 12:30] VITALS: BP 141/82; PULSE 78; RESP 15; O2SAT 95
[2024-02-09 12:45] VITALS: BP 151/91; PULSE 84; RESP 19; O2SAT 96
[2024-02-09 13:19] LABS: Anion Gap 9 mmol/L (4-12); Blood Urea Nitrogen 35 mg/dL (9-20); Calcium 9.1 mg/dL (8.4-10.2); Carbon Dioxide 26 mmol/L (22-30); Chloride 103 mmol/L (98-107); Estimated CRCL calculation 48 ml/min; Estimated Glomerular Filt Rate 37; Glucose 89 mg/dL (65-110); Magnesium 1.8 mg/dL (1.6-2.3); Potassium 4.2 mmol/L (3.4-5.0); Sodium 138 mmol/L (137-145)
== END 2024-02-09 12:45 | disposition home or self-care (01) ==
PROVIDERS: Internal Medicine; PCP Physician Assistant; Visit Provider Internal Medicine
PROC: 5A2204Z Restoration of Cardiac Rhythm, Single (ICD-10-PCS; principal; 2024-02-09 09:00)
DX: I48.92 Unspecified atrial flutter (principal); I10 Essential (primary) hypertension; E78.5 Hyperlipidemia, unspecified; Z79.01 Long term (current) use of anticoagulants; Z87.891 Personal history of nicotine dependence; E66.01 Morbid (severe) obesity due to excess calories; Z68.41 Body mass index [BMI] 40.0-44.9, adult
CPT/HCPCS: 36415; 80048; 83735; 92960; A9270; J2704; J7040

== ENCOUNTER 2024-02-16 14:01 | Emergency (ER) | payer MEDICARE, OTHER, SELFPAY ==
[2024-02-16] VITALS (14 sets, daily range): BP systolic 114–131; BP diastolic 69–79; PULSE 96–120; RESP 14–25; TEMP 36.4; O2SAT 95–98
--- NOTE | ~2024-02-16 | XR_ITS ---
EXAMINATION: XR chest 1V portable DATE: 02/16/2024 17:00 INDICATION: Chest pain. TECHNIQUE: A single frontal view of the chest was obtained. COMPARISON: Chest 2 views 02/10/2024, chest CT 02/10/2024 FINDINGS: Calcified left lung nodules are consistent with old granulomatous disease. No pleural effus ion or pneumothorax. Cardiomegaly is noted. IMPRESSION: 1. Cardiomegaly. Reviewed, dictated and finalized at location A. ONCOLOGY RESEARCH IMPRESSION: 1. Cardiomegaly.
--- NOTE | 2024-02-16 16:45 | ECG_ITS ---
Test Date: 2024-02-16 16:56:08 Measurements Intervals [place] Rate: 105 P: 0 OR: 0 QRS: -18 QRSD: 92 T: 12 QT: 354 QTc: 469 Interpretive Statements ATRIAL FLUTTER/TACHYCARDIA WITH RAPID VENTRICULAR RESPONSE DELAYED PRECORDIAL R/S TRANSITION BASELINE ARTIFACT- I, II, III, AVR, AVL, AVF ABNORMAL ECG Compared to ECG 02/10/2024 12:20:18 Sinus rhythm no longer present Electronically Signed On 02-16-2024 18:21:50 [employer] by Marcelino Barba D.O.
[2024-02-16 17:01] LABS: Basophils Percent Auto 0.6 % (0.2-1.2); Eosinophils Absolute Auto 0.1 K/mm3 (0-0.3); Eosinophils Percent Auto 2.1 % (0-4.4); Hematocrit 42.6 % (42.0-52.0); Hemoglobin 14.1 g/dL (14.0-18.0); Immature Granulocyte Absolute 0.05 K/mm3 (0.00-0.031); Immature Granulocyte Percent A 0.8 % (0-0.5); Lymphocytes Absolute Auto 0.72 K/mm3 (0.9-3.2); Lymphocytes Percent Auto 11.6 % (18.3-44.2); Mean Corpuscular HGB Conc 33.1 g/dl (32-36); Mean Corpuscular Hemoglobin 33.5 pg (26-34); Mean Corpuscular Volume 101.2 fl (80-100); Mean Platelet Volume 9.4 fl (7.4-10.4); Monocytes Absolute Auto 0.6 K/mm3 (0.1-0.6); Neutrophils Absolute Auto 4.7 K/mm3 (1.3-6.7); Neutrophils Percent Auto 74.9 % (45.5-73.1); Platelet Count Result 237 k/mm3 (150-375); Red Blood Count 4.21 M/mm3 (4.6-6.20); Red Cell Distribution Width 12.5 % (11.5-14.5); White Blood Count 6.2 K/mm3 (4.5-10.0)
[2024-02-16 17:11] LABS: Alanine Aminotransferase 19 U/L (6-50); Alkaline Phosphatase 99 U/L (38-126); Anion Gap 3 mmol/L (4-12); Aspartate Amino Transferase 20 U/L (17-59); Blood Urea Nitrogen 43 mg/dL (9-20); Carbon Dioxide 33 mmol/L (22-30); Chloride 97 mmol/L (98-107); Estimated CRCL calculation 45 ml/min; Estimated Glomerular Filt Rate 35; Glucose 96 mg/dL (65-110); Lipase 235 U/L (23-300); Potassium 4.3 mmol/L (3.4-5.0); Sodium 133 mmol/L (137-145)
[2024-02-16 17:14] LABS: INR 1.2; Partial Thromboplastin Time 27.4 Seconds (22.3-36.8); Prothrombin Time 15.4 Seconds (11.1-14.7)
[2024-02-16 17:23] LABS: Troponin I < 0.012 ng/mL (0.000-0.034)
--- NOTE | 2024-02-16 17:30 | ED_ITS ---
HPI - Arrhythmia/Palpitations General Chief Complaint: Arrhythmia/Palpitations Stated Complaint: tachycardia Time Seen by Provider: 02/16/24 16:58 Source: patient and old records reviewed Mode of arrival: ambulatory Limitations: no limitations History of Present Illness HPI narrative: Patient is a 73-year-old male, with past medical history of AFib/A-flutter on Eliquis, CHF, who presents to the ED with c/o tachycardia. Patient underwent cardioversion last week under Dr. Varma for persistent a flutter. He was then admitted for 3 days over the weekend for congestive heart failure. Patient had a follow-up EKG performed today in the office which showed tachycardia with rates up into the 120s, AFib. He was then sent to the ED for further evaluation. Patient states he feels well, feels at his baseline. He does admit to slight chest pressure currently. Has shortness of breath with exertion, but states this has been ongoing for the last several weeks/months. Denies swelling in his extremities. Denies cough or cold symptoms, fevers. Related Data Home Medications Medication Instructions Recorded Confirmed latanoprost 0.005 % eye drops 1 drp EACH EYE HS 11/22/20 02/10/24 atorvastatin 10 mg tablet 10 mg PO HS 08/19/22 02/10/24 losartan 100 mg tablet 100 mg PO HS 09/11/23 02/10/24 polyethylene glycol 3350 17 17 g PO DAILY 11/08/23 02/10/24 gram/dose oral powder (Miralax) psyllium husk 3.4 gram/5.4 gram 1 tbsp PO DAILY PRN Constipation 11/08/23 02/10/24 oral powder (Metamucil) timolol maleate 0.5 % once daily 1 drp EACH EYE BID 02/10/24 02/10/24 eye drops Allergies Allergy/AdvReac Type Severity Reaction Status Date / Time No Known Allergies Allergy Verified 02/10/24 18:00 Review of Systems Review of Systems: All systems reviewed & are unremarkable except as noted in HPI. 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 Later became infected and had to undergo hardware removal. Then later had to have left total hip replacement. History of vasectomy Status post left foot surgery Family History Family History Mother No pertinent past medical history Cerebrovascular accident Father No pertinent past medical history Cerebrovascular accident Father No problems noted. Social History Social History (Reviewed 02/17/24 @ :43 by Silva Lee PA-C) Smoking status: Never smoker Tobacco type: cigarettes Second hand tobacco smoke exposure: No Alcohol intake: current Drinks per week: 21 Alcohol use details: [place] Substance use: never Substance use type: does not use Do You Feel Safe in your Home?: Yes Lack of Transportation: No Lack of Food: Never True Current Housing: I Have Housing Concerned About Future Housing: No Difficulty Paying Gas/Electric Bills: No Difficulty Paying for Meds: No Currently Unemployed: No Education: Bachelor's Degree Difficulty w/ Childcare or Family Care: No Living arrangements: with family Gender identity (if verbalized by the patient): Male Sexual Orientation (if Verbalized by the Patient): Straight or Heterosexual Spiritual care concerns: No Exam Narrative: GENERAL: Well appearing, obese with BMI of 39.0, non-toxic, in no acute distress. HEAD: Normocephalic, atraumatic. RESPIRATORY: Airway patent, respirations nonlabored. Clear to auscultation bilaterally, no rales, rhonchi, wheezing. CARDIOVASCULAR: Borderline tachycardic with irregular rhythm without murmurs, rubs, or gallops. Peripheral pulses intact. ABDOMINAL: Soft, nontender, nondistended. Normoactive BS. MUSCULOSKELETAL: Moves all extremities. No gross deformities. No peripheral edema. SKIN: Warm, dry, normal color. NEURO: A&O X3. Speech clear. Cranial nerves II-XII grossly intact. Steady gait. No ataxic movements. PSYCHIATRIC: Appropriate mood and affect. Normal interaction. Course Vital Signs Vital signs: Vital Signs Temperature 97.6 F 02/16/24 14:05 Pulse Rate 120 H 02/16/24 14:05 Respiratory Rate 16 02/16/24 14:05 Blood Pressure 131/75 02/16/24 14:05 Pulse Oximetry 98 02/16/24 14:05 Oxygen Delivery Room Air 02/16/24 14:05 Temperature 97.6 F 02/16/24 14:05 Pulse Rate 108 H 02/16/24 20:45 Respiratory Rate 25 H 02/16/24 20:45 Blood Pressure 120/73 02/16/24 19:31 Pulse Oximetry 98 02/16/24 20:45 Oxygen Delivery Room Air 02/16/24 14:05 MDM - Arrhythmia/Palpitations MDM Narrative Medical decision making narrative: Patient presented to ED with abnormal outpatient EKG, tachycardia, AFib. Otherwise fairly asymptomatic. Does feel slight chest pressure currently. Recent cardioversion for a flutter, recent admission for congestive heart failure. EKG today shows AFIB with RVR, rates ranging from the low 100s up to the mid 120s. Baseline troponin is undetectable. Chest x-ray with cardiomegaly, no evidence of pulmonary edema. Slight NAVID noted on CMP with creatinine today of 1.9. Baseline around 1.5. Will give small dose of fluids. BNP is around 2000 though patient does not seem acutely fluid overloaded at this time. Denying any SOB. No peripheral edema. Patient is on Eliquis, furosemide 40 mg daily, metoprolol 25 mg b.i.d. Will give additional dose of metoprolol to see if we can control heart rate better. HR remaining stable at 90s-low 100s. BP stable. 3hr troponin also resulted undetectable. Discussed case with Dr. Arriaga, agrees HR is fairly under control. Feel patient safe for outpatient f/u. Can admit if patient uncomfortable going home. Discussed these recommendations with patient. He is in agreement this plan for d/c. He states he is ready to go. Would prefer to go home versus being admitted. Discussed potential for admission here today, but patient would rather go home. Advised to have close follow-up with Cardiology for further evaluation. Given strict return precautions. Patient voiced understanding. Discharged in stable condition. HR was stable at time of d/c. Medical Records Attestation: I reviewed the patient's medical records. Lab Data Attestation: I reviewed the patient's lab results. 02/16/24 16:54 02/16/24 16:54 Labs: Lab Results 02/16/24 02/16/24 Range/Units 16:54 19:57 WBC 6.2 (4.5-10.0) K/mm3 RBC 4.21 L (4.6-6.20) M/mm3 Hgb 14.1 (14.0-18.0) g/dL Hct 42.6 (42.0-52.0) % MCV 101.2 H (80-100) fl MCH 33.5 (26-34) pg MCHC 33.1 (32-36) g/dl RDW 12.5 (11.5-14.5) % Plt Count 237 (150-375) k/mm3 MPV 9.4 (7.4-10.4) fl Immature Gran % (Auto) 0.8 H (0-0.5) % Neut % (Auto) 74.9 H (45.5-73.1) % Lymph % (Auto) 11.6 L (18.3-44.2) % [place] % (Auto) 10.0 H (2.6-8.5) % Eos % (Auto) 2.1 (0-4.4) % Baso % (Auto) 0.6 (0.2-1.2) % Lymph # (Auto) 0.72 L (0.9-3.2) K/mm3 [place] # (Auto) 0.6 (0.1-0.6) K/mm3 Eos # (Auto) 0.1 (0-0.3) K/mm3 Baso # (Auto) 0.0 (0.0-0.1) K/mm3 Abs Immat Gran (auto) 0.05 H (0.00-0.031) K/mm3 Absolute Neuts (auto) 4.7 (1.3-6.7) K/mm3 Absolute Nucleated RBC 0.000 (0.0-0.012) K/mm3 Nucleated RBC % 0.0 (0.0-0.2) % PT 15.4 H (11.1-14.7) Seconds INR 1.2 APTT 27.4 (22.3-36.8) Seconds Sodium 133 L (137-145) mmol/L Potassium 4.3 (3.4-5.0) mmol/L Chloride 97 L (98-107) mmol/L Carbon Dioxide 33 H (22-30) mmol/L Anion Gap 3 L (4-12) mmol/L BUN 43 H D (9-20) mg/dL Creatinine 1.90 H (0.7-1.3) mg/dL Estim Creat Clear Calc 45 ml/min Estimated GFR 35 L (59 - ) Glucose 96 (65-110) mg/dL Calcium 9.0 (8.4-10.2) mg/dL Magnesium 1.9 (1.6-2.3) mg/dL Total Bilirubin 1.0 (0.2-1.3) mg/dL AST 20 (17-59) U/L ALT 19 (6-50) U/L Alkaline Phosphatase 99 (38-126) U/L Troponin I < 0.012 < 0.012 (0.000-0.034) ng/mL NT-Pro-B Natriuret Pep 2100 H (19.9-100) pg/mL Total Protein 7.0 (6.3-8.2) g/dL Albumin 4.0 (3.5-5.1) g/dL Lipase 235 (23-300) U/L Imaging Data Attestation: I personally reviewed and interpreted this imaging study as follows: Radiologist's impression: ITS Impressions Chest X-Ray 02/16/24 17:03 IMPRESSION: 1. Cardiomegaly. ECG Data EKG #1: Attestation: I personally reviewed and interpreted this ECG as follows: ECG completion date: 02/16/24 ECG completion time: 16:56 EKG Interpretation: tachycardia (105), atrial fibrillation (RVR) and non- specific ST changes Discharge Plan Discharge Clinical Impression: Atrial fibrillation Patient Disposition: Home, Self-Care Condition: Stable Instructions: Antibiotic Form, A-fib (Atrial Fibrillation) (ED), Heart Palpitations (ED) Additional Instructions: Your workup here was reassuring. Continue home medications. Stay well hydrated. Follow-up with Cardiology for further evaluation. Return to the ED if you experience persistently elevated heart rate (greater than 120 beats per minute), worsening chest pain or difficulty breathing, pers istent fevers, unable to keep down food or drink, severe swelling in extremities, feeling dizzy or lightheaded, passing out, or any other symptoms of concern. Prescriptions: No Action losartan 100 mg tablet 100 mg PO HS latanoprost 0.005 % Drops 1 drp EACH EYE HS atorvastatin 10 mg tablet 10 mg PO HS polyethylene glycol 3350 [Miralax] 17 gram/dose Powder 17 g PO DAILY Metamucil 3.4 gram/5.4 gram Powder 1 tbsp PO DAILY PRN (Reason: Constipation) Rx Instructions: mix into at least 8 oz of water or juice before administering furosemide 40 mg tablet 40 mg PO DAILY Qty: 30 3RF timolol maleate 0.5 % Drops, Once Daily 1 drp EACH EYE BID ferrous sulfate 325 mg (65 mg iron) Tablet,Delayed Release (Dr/Ec) 325 mg PO DAILY Qty: 30 0RF Eliquis 5 mg Tablet 5 mg PO Q12HR 30 Days Qty: 60 0RF metoprolol tartrate 25 mg Tablet 25 mg PO Q12HR 30 Days Qty: 60 0RF Follow-up/Referrals: Dheeraj,KARL Nunez [Primary Care Provider] - Lori Varma MD [Physician] - (CARDIOLOGY) Time of Disposition: 20:45
[2024-02-16 17:51] LABS: Magnesium 1.9 mg/dL (1.6-2.3)
[2024-02-16] MEDS: SODIUM CHLORIDE 0.9% IV 500 ML 999 ML IV CONT (17:52)
[2024-02-16 18:01] LABS: NT Pro B Type Natriuretic Pept 2100 pg/mL (19.9-100)
[2024-02-16] MEDS: METOPROLOL TARTRATE 25 MG TABLET PO (18:25)
--- NOTE | 2024-02-16 19:18 | PC.NURSE ---
Report received from NEIL Shetty. Assumed care of patient at this time.
[2024-02-16 20:23] LABS: Troponin I < 0.012 ng/mL (0.000-0.034)
== END 2024-02-16 20:53 | disposition home or self-care (01) ==
PROVIDERS: Emergency Medicine; Emergency Provider Physician Assistant; PCP Physician Assistant
DX: I48.91 Unspecified atrial fibrillation (principal); Z79.01 Long term (current) use of anticoagulants; E78.5 Hyperlipidemia, unspecified; I11.0 Hypertensive heart disease with heart failure; I50.9 Heart failure, unspecified
CPT/HCPCS: 36415; 71045; 80053; 83690; 83735; 83880; 84484; 85025; 85610; 85730; 93005; 96360; 96361; 99284; A9270; J7040

== ENCOUNTER 2024-06-19 14:38 | Emergency (ER) | payer MEDICARE, OTHER, SELFPAY ==
--- NOTE | ~2024-06-19 | XR_ITS ---
XR chest 1V portable Ordering provider: Josemanuel Damon PA-C History: 74 years Male with . cough, dyspnea X COUPLE WEEKS . Comparison: February 26, 2024 FINDINGS: MEDIASTINUM: The cardiac silhouette is slightly enlarged. Congestive angel. LUNGS: No infiltrates, effusions or pneumothorax. OTHER: No free air under the diaphragm. Degenerative changes of the spine. IMPRESSION: No acute cardiopulmonary pathology. Reviewed, dictated and finalized at location A.
--- NOTE | 2024-06-19 14:44 | ECG_ITS ---
Test Date: 2024-06-19 15:07:20 Measurements Intervals [place] Rate: 99 P: 0 FL: 0 QRS: -16 QRSD: 87 T: 4 QT: 370 QTc: 476 Interpretive Statements ATRIAL FIBRILLATION ABNORMAL RHYTHM ECG Compared to ECG 02/16/2024 16:56:08 Atrial flutter no longer present Electronically Signed On 06-20-2024 13:55:51 CDT by Davi Giblert M.D.
[2024-06-19 14:45] VITALS: PULSE 67; O2SAT 96
[2024-06-19 15:02] VITALS: BP 116/73; PULSE 85; RESP 20; TEMP 36.4; O2SAT 97
--- OUTSIDE RECORDS SUMMARY | 2024-06-19 16:29 | XMS_ITS | Data Portability ---
Author Organization KORINA Torsten LANDAVERDE Address [address] [facility] [place] [address] Care Team Providers Care Kids Activities Coach Name Role Phone EDWARD CRAWFORD Primary Care Provider Unavailab le Assessment Encounter Date Assessment Date Assessment LastModified by Organization Details LastModified Time 07/26/2023 07/26/2023 colonoscopy, all clear except hemorrhoids, can flare and bleed with constipation. Not available 07/26/2023 10:33:48 01/24/2024 01/24/2024 colonoscopy, all clear except hemorrhoids, can flare and bleed with constipation. Not available 01/24/2024 10:12:51 02/23/2024 02/23/2024 colonoscopy, all clear except hemorrhoids, can flare and bleed with constipation. Not available 02/23/2024 09:17:30 Plan of Treatment Reminders Order Date Submit Date Provider Last Modified By Organization Details Last Modified Time Details Appointments ANY 15 2024 09:00A AMAYA Newton Not available Not available Not available Lab lipid panel, serum 2023 025 [facility], [address] [facility], [facility] [address], [place], [address], 01/24/2024 10:31:18 hepatic function panel, serum 2023 025 [facility], [address] [facility], [address], [place], [address], 01/24/2024 10:31:17 BMP, serum or plasma 2023 025 [facility], [address] [place] [address], [place], [address], 01/24/2024 10:31:18 TSH + free T4, serum 2023 025 [facility], [address] [place] [address], [place], [address], 01/24/2024 10:31:18 CBC w/ auto diff 2023 025 [facility], [address] [place] [address], [place], [address], 01/24/2024 10:31:17 ferritin, serum or plasma 2023 025 [facility], [address] [place] [address], [place], [address], 01/24/2024 10:31:17 iron + total iron-bind ing capacity (TIBC), serum 2023 025 [facility], [address] [place] [address], [place], [address], 01/24/2024 10:31:17 vitamin B12 + folate, serum or blood 2023 025 [facility], [address] [place] [address], [place], [address], 01/24/2024 10:31:17 ferritin, serum or plasma 2023 024 [facility], [address] [place] [address], [place], [address], 01/26/2024 11:15:10 iron + total iron-bind ing capacity (TIBC), serum 2023 024 [facility], [address] [place] [address], [place], [address], 01/26/2024 11:15:09 vitamin B12 + folate, serum or blood 2023 024 [facility], [address] [place] [address] [facility] [address], [place], [address], 01/26/2024 11:15:08 PSA, serum or plasma 2023 024 [facility], [address] [place] [address] 2, [place], [address], 01/16/2024 11:16:02 lipid panel, serum 2023 024 [facility], [address] [place] [address] 2, [place], [address], 01/16/2024 11:16:00 CBC w/ auto diff 2023 024 [facility], [address] [place] [address] 2, [place], [address], 01/16/2024 11:16:03 hepatic function panel, serum 2023 024 [facility], [address] [place] [address] 2, [place], [address], 01/16/2024 11:16:01 BMP, serum or plasma 2023 024 [facility], [address] [place] [address], [place], [address], 01/16/2024 11:16:01 TSH + free T4, serum 2023 024 [facility], [address] [place] [address] 2, [place], [address], 01/16/2024 11:15:59 Referral None recorded. Procedures None recorded. Surgeries None recorded. Imaging None recorded. Medication Orders losartan 100 mg tablet [address] [id number], [address], [place], [place], [id number], 08/08/2023 19:03:19 Patient TargetsNo targets recorded. Patient Instructions Encounter Date Encounter Id Patient Instructions Last Modified By Organization Details Last Modified Time 07/26/2023 [id number] A healthy lifestyle: care instructions Not available 08/08/2023 19:07:43 01/24/2024 [id number] A healthy lifestyle: care instructions Not available 01/24/2024 10:31:17 02/23/2024 [id number] A healthy lifestyle: care instructions Not available 03/09/2024 12:53:12 Reason for Referral None Reported. Results Created Date Observation Date Name Description Value Unit Range Abnormal Flag Note LastModifiedBy Organization Detail LastModifiedTime 01/15/2001/16/2024 TSH+F REE T4 TSH 3.080 uIU/m L 0.450- 4.500 Not Available [facility] ([facility]) [address] [place], [address], 01/16/2024 11:15:59 01/15/2001/16/2024 TSH+F REE T4 T4,free(dire ct) 1.33 NG/dL 0.82-1 .77 Not Available [facility] ([facility]) [address] [place], [address], 01/16/2024 11:15:59 01/15/20 24 01/16/2024 LIPID PANEL cholesterol, total 152 mg/dL 100-19 9 Not Available [facility] ([facility]) [address] [place], [address], 01/16/2024 11:16:00 01/15/20 24 01/16/2024 LIPID PANEL triglyceride s 176 mg/dL 0-149 above high normal Not Available [facility] ([facility]) [address] [place], [address], 01/16/2024 11:16:00 01/15/20 24 01/16/2024 LIPID PANEL HDL cholesterol 71 mg/dL >39 Not Available [facility]) [address] [facility] [place], [address], 01/16/2024 11:16:00 01/15/20 24 01/16/2024 LIPID PANEL VLDL cholesterol flor 29 mg/dL 5-40 Not Available [facility] ([facility]) [address] [facility] [place], [address], 01/16/2024 11:16:00 01/15/20 24 01/16/2024 LIPID PANEL LDL chol calc ([facility]) 52 mg/dL 0-99 Not Available [facility] ([facility]) [address] [facility], [place], [address], 01/16/2024 11:16:00 01/15/20 24 01/16/2024 HEPAT IC FUNCT ION PANEL (7) protein, total 5.7 g/dL 6.0-8. 5 below low normal Not Available [facility] ([facility]) [address] [place], [address], 01/16/2024 11:16:01 01/15/20 24 01/16/2024 HEPAT IC FUNCT ION PANEL (7) albumin 3.7 g/dL 3.8-4. 8 below low normal Not Available [facility] ([facility]) [address] [place], [address], 01/16/2024 11:16:01 01/15/20 24 01/16/2024 HEPAT IC FUNCT ION PANEL (7) bilirubin, total 0.7 mg/dL 0.0-1. 2 Not Available [facility] ([facility]) [address] [place], [address], 01/16/2024 11:16:01 01/15/20 24 01/16/2024 HEPAT IC FUNCT ION PANEL (7) bilirubin, direct 0.22 mg/dL 0.00-0 .40 Not Available [facility] ([facility]) [address] [facility], [place], [address], 01/16/2024 11:16:01 01/15/2001/16/2024 HEPAT IC FUNCT ION PANEL (7) alkaline phosphatase 105 IU/L 44-121 Not Available [facility] ([facility]) [address] [facility] [place], [address], 01/16/2024 11:16:01 01/15/2001/16/2024 HEPAT IC FUNCT ION PANEL (7) AST (SGOT) 12 IU/L 0-40 Not Available [facility] ([facility]) [address] [facility] [place], [address], 01/16/2024 11:16:01 01/15/2001/16/2024 HEPAT IC FUNCT ION PANEL (7) ALT (SGPT) 16 IU/L 0-44 Not Available [facility] ([facility]) [address] [facility], [place], [address], 01/16/2024 11:16:01 01/15/2001/16/2024 BMP7+ EGFR glucose 85 mg/dL 70-99 Not Available [facility] ([facility]) [address] [facility] [place], [address], 01/16/2024 11:16:01 01/15/2001/16/2024 BMP7+ EGFR BUN 26 mg/dL 8-27 Not Available [facility] ([facility]) [address] [facility] [place], [address], 01/16/2024 11:16:01 01/15/2001/16/2024 BMP7+ EGFR creatinine 1.41 mg/dL 0.76-1 .27 above high normal Not Available [facility] ([facility]) [address] [facility] [place], [address], 01/16/2024 11:16:01 01/15/20 01/16/2024 BMP7+ EGFR eGFR 53 mL/mi n/1.7 3 >59 below low normal Not Available [facility] ([facility]) [address] [place], [address], 01/16/2024 11:16:01 01/15/20 24 01/16/2024 BMP7+ EGFR sodium 139 mmol/ L 134-14 4 Not Available [facility] ([facility]) [address] [place], [address], 01/16/2024 11:16:01 01/15/2001/16/2024 BMP7+ EGFR potassium 4.7 mmol/ L 3.5-5. 2 Not Available [facility] ([facility]) [address] [place], [address], 01/16/2024 11:16:01 01/15/2001/16/2024 BMP7+ EGFR chloride 103 mmol/ L 96-106 Not Available [facility] ([facility]) [address] [place], [address], 01/16/2024 11:16:01 01/15/20 24 01/16/2024 BMP7+ EGFR carbon dioxide, total 23 mmol/ L 20-29 Not Available [facility] ([facility]) [address] [place], [address], 01/16/2024 11:16:01 01/15/2001/15/2024 PSA TOTAL (REFL EX TO FREE) reflex criteria COMMEN T The perce nt free PSA is perfo rmed on a refle x basis only when the total PSA is betwe en 4.0 and 10.0 ng/mL . Not Available [facility] ([facility]) [address] [place], [address], 01/16/2024 11:16:02 01/15/20 24 01/16/2024 PSA TOTAL (REFL EX TO FREE) prostate specific Ag 10.5 NG/mL 0.0-4. 0 above high normal [facility] ECLIA metho dolog y. Accor ding to the Ameri can [employer] g[employer] iatio n, Serum PSA shoul d decre ase and remai n at undet ectab le level s after radic al prost atect ciaran. The AUA defin es bioch emica l recur rence as an initi al PSA value 0.2 ng/mL or great er follo wed by a subse quent confi rmato ry PSA value 0.2 ng/mL or great er. Value s obtai poornima with diffe rent assay metho ds or kits canno t be used inter del real eably . Resul ts canno t be inter prete d as absol mandy evide nce of the prese nce or absen ce of roslyn justin se. Not Available [facility] ([facility]) [address] [place], [address], 01/16/2024 11:16:02 01/15/20 24 01/16/2024 CBC WITH DIFFE RENTI AL/PL ATELE T WBC 3.3 x10e3 /uL 3.4-10 .8 below low normal Not Available [facility] ([facility]) [address] [place], [address], 01/16/2024 11:16:03 01/15/20 24 01/16/2024 CBC WITH DIFFE RENTI AL/PL ATELE T RBC 3.78 x10e6 /uL 4.14-5 .80 below low normal Not Available [facility] ([facility]) [address] [place], [address], 01/16/2024 11:16:03 01/15/20 24 01/16/2024 CBC WITH DIFFE RENTI AL/PL ATELE T hemoglobin 12.6 g/dL 13.0-1 7.7 below low normal Not Available [facility] ([facility]) [address] [place], [address], 01/16/2024 11:16:03 01/15/20 24 01/16/2024 CBC WITH DIFFE RENTI AL/PL ATELE T hematocrit 38.6 % 37.5-5 1.0 Not Available [facility] ([facility]) [address] [facility], [place], [address], 01/16/2024 11:16:03 01/15/20 24 01/16/2024 CBC WITH DIFFE RENTI AL/PL ATELE T MCV 102 fL 79-97 above high normal Not Available [facility] ([facility]) [address] [facility], [place], [address], 01/16/2024 11:16:03 01/15/2001/16/2024 CBC WITH DIFFE RENTI AL/PL ATELE T MCH 33.3 pg 26.6-3 3.0 above high normal Not Available [facility] ([facility]) [address] [facility], [place], [address], 01/16/2024 11:16:03 01/15/2001/16/2024 CBC WITH DIFFE RENTI AL/PL ATELE T MCHC 32.6 g/dL 31.5-3 5.7 Not Available [facility] ([facility]) [address] [place], [address], 01/16/2024 11:16:03 01/15/20 24 01/16/2024 CBC WITH DIFFE RENTI AL/PL ATELE T RDW 13.3 % 11.6-1 5.4 Not Available [facility] ([facility]) [address] [place], [address], 01/16/2024 11:16:03 01/15/20 24 01/16/2024 CBC WITH DIFFE RENTI AL/PL ATELE T platelets 238 x10e3 /uL 150-45 0 Not Available [facility] ([facility]) [address] [place], [address], 01/16/2024 11:16:03 01/15/20 01/16/2024 CBC WITH DIFFE RENTI AL/PL ATELE T neutrophils 67 % notest ab. Not Available [facility] ([facility]) [address] [facility], [place], [address], 01/16/2024 11:16:03 01/15/20 24 01/16/2024 CBC WITH DIFFE RENTI AL/PL ATELE T lymphs 18 % notest ab. Not Available [facility] ([facility]) [address] [facility], [place], [address], 01/16/2024 11:16:03 01/15/2001/16/2024 CBC WITH DIFFE RENTI AL/PL ATELE T monocytes 10 % notest ab. Not Available [facility] ([facility]) [address] [facility], [place], [address], 01/16/2024 11:16:03 01/15/20 24 01/16/2024 CBC WITH DIFFE RENTI AL/PL ATELE T eos 3 % notest ab. Not Available [facility] ([facility]) [address] [facility], [place], [address], 01/16/2024 11:16:03 01/15/20 24 01/16/2024 CBC WITH DIFFE RENTI AL/PL ATELE T basos 1 % notest ab. Not Available [facility] ([facility]) [address] [facility], [place], [address], 01/16/2024 11:16:03 01/15/20 24 01/16/2024 CBC WITH DIFFE RENTI AL/PL ATELE T neutrophils (absolute) 2.2 x10e3 /uL 1.4-7. 0 Not Available [facility] ([facility]) [address] [facility], [place], [address], 01/16/2024 11:16:03 01/15/20 24 01/16/2024 CBC WITH DIFFE RENTI AL/PL ATELE T lymphs (absolute) 0.6 x10e3 /uL 0.7-3. 1 below low normal Not Available [facility] ([facility]) [address] [facility], [place], [address], 01/16/2024 11:16:03 01/15/20 24 01/16/2024 CBC WITH DIFFE RENTI AL/PL ATELE T monocytes(ab solute) 0.3 x10e3 /uL 0.1-0. 9 Not Available [facility] ([facility]) [address] [facility], [place], [address], 01/16/2024 11:16:03 01/15/2001/16/2024 CBC WITH DIFFE RENTI AL/PL ATELE T eos (absolute) 0.1 x10e3 /uL 0.0-0. 4 Not Available [facility] ([facility]) [address] [facility], [place], [address], 01/16/2024 11:16:03 01/15/20 24 01/16/2024 CBC WITH DIFFE RENTI AL/PL ATELE T baso (absolute) 0.0 x10e3 /uL 0.0-0. 2 Not Available [facility] ([facility]) [address] [facility], [place], [address], 01/16/2024 11:16:03 01/15/20 24 01/16/2024 CBC WITH DIFFE RENTI AL/PL ATELE T immature granulocytes 1 % notest ab. Not Available [facility] ([facility]) [address] [facility], [place], [address], 01/16/2024 11:16:03 01/15/2001/16/2024 CBC WITH DIFFE RENTI AL/PL ATELE T immature grans (abs) 0.0 x10e3 /uL 0.0-0. 1 Not Available [facility] ([facility]) [address] [place], [address], 01/16/2024 11:16:03 01/25/2001/26/2024 VITAM IN B12 AND FOLAT E vitamin B12 286 pg/mL 232-12 45 Not Available [facility] ([facility]) [address] [facility], [place], [address], 01/26/2024 11:15:08 01/25/2001/26/2024 VITAM IN B12 AND FOLAT E folate (folic acid), serum 7.4 NG/mL >3.0 A serum folat e kellie ntrat ion of less than 3.1 ng/mL is consi dered to repre sent clini flor defic iency . Not Available [facility] ([facility]) [address] [place], [address], 01/26/2024 11:15:08 01/25/2001/26/2024 IRON AND TIBC iron bind.cap.(TI BC) 301 ug/dL 250-45 0 Not Available [facility] ([facility]) [address] [facility], [place], [address], 01/26/2024 11:15:09 01/25/2001/26/2024 IRON AND TIBC UIBC 224 ug/dL 111-34 3 Not Available [facility] ([facility]) [address] [facility], [place], [address], 01/26/2024 11:15:09 01/25/2001/26/2024 IRON AND TIBC iron 77 ug/dL 38-169 Not Available [facility] ([facility]) [address] [place], [address], 01/26/2024 11:15:09 01/25/2001/26/2024 IRON AND TIBC iron saturation 26 % 15-55 Not Available [facility] ([facility]) [address] [place], [address], 01/26/2024 11:15:09 01/25/2001/26/2024 MARU TIN ferritin 76 NG/mL 30-400 Not Available [facility] ([facility]) [address], [place], [address], 01/26/2024 11:15:10 12/25/19 XR, chest , 2 view No observ ation record ed. Not Available 2023 08:42:39 02/11/20 24 02/10/2024 XR, chest , 2 view No observ ation record ed. [address], [place], [address], 02/11/2024 09:22:16 02/16/20 24 02/16/2024 XR, chest , 2 view No observ ation record ed. [address], [place], [address], 02/18/2024 10:32:59 03/06/20 24 02/11/2024 US, echo ardio gram No observ ation record ed. BARCODE Not Available 2023 15:58:39 Result Notes None recorded. Problems Name Problem SNOMED Code Status Onset Date Resolution Date Notes Provider Name and Address Organization Details Recorded Time Prostate specific antigen above reference range 592371224 Active 2023 AMAYA Flynn Attn: Franki salas,[address] [facility], [place], [address], [facility] 4 19:07:10 Atrial flutter 8894799 Active 2023 AMAYA Flynn Attn: Franki g,[address] [facility], [place], [address], [place] - [facility] 4 19:07:11 Mixed hyperlipidemia 876380520 Active 2023 AMAYA Flynn Attn: Franki salas,[address] [facility], [place], [address], [place] - [facility] 4 19:07:12 Benign essential hypertension 9539451 Active 2023 AMAYA Flynn Attn: Accountin g,[address] [facility], [place], [address], [place] - [facility] 4 19:07:13 Body mass index 40+ - severely obese 788060961 Active 2023 AMAYA Flynn Attn: Accountin g,[address] [facility], [place], [address], [place] - [facility] 4 19:07:44 Obesity 474172222 Active 2023 AMAYA Flynn Attn: Accountin g,[address] [facility], [place], [address], [place] - [facility] 4 19:07:45 Anemia 552622307 Active 2023 AMAYA Flynn Attn: Accountin g,[address] [facility], [place], [address], [place] - [facility] 4 10:34:04 Long-term drug therapy Active 2023 AMAYA Flynn Attn: Accountin g,[address] [facility], [place], [address], [place] - [facility] 4 10:34:07 Problem Notes None recorded. Procedures Surgical History Date Name Laterality Status Provider Name and Address Organization Details Recorded Time Joint Replacement completed Erika Phan MA CT - [facility] 07/26/2023 10:51:26 Prostate Biopsy completed Erika Phan MA CT - [facility] 07/26/2023 10:51:33 Imaging Results Imaging Date Name Status LastModified by Organization Details LastModified Time 12/25/2023 XR, chest, 2 view completed Informa tion not available 12/27/2023 08:42:39 02/10/2024 XR, chest, 2 view completed [place] [address], [place], [address], 02/11/2024 09:22:16 02/16/2024 XR, chest, 2 view completed [facility] [address], [place], [address], 02/18/2024 10:32:59 02/11/2024 US, echocardiogram completed [facility] Inform ation not available 03/06/2024 15:58:39 Procedure Notes None recorded. Medical Equipment None Reported. Allergies No known drug allergies Medications Name Sig Start Date Stop Date Status Note LastModified by Organization Details LastModified Time furosemide 40 mg tablet TAKE 1 TABLET BY MOUTH DAILY active Not Available Not Available No t Available latanoprost 0.005 % eye drops Instill by ophthalmi c route for 90 days. active Not Available Not Available No t Available atorvastati n 10 mg tablet TAKE 1 TABLET BY MOUTH EVERY DAY 2024 active Not Available Not Available Not Avai lable Anucort-HC 25 mg suppository UNWRAP AND INSERT 1 SUPPOSITO RY RECTALLY TWICE DAILY FOR 6 DAYS 01/23 completed Not Available Not Available Not Available potassium chloride ER 10 mEq tablet,exte nded release TAKE 1 TABLET BY MOUTH WITH FUROSEMID E DAYS 07/25 completed Not Available Not Available Not Available amoxicillin 500 mg tablet TAKE FOUR TS PO 1 HOUR B DAPP 01/23 completed Not Available Not Available Not Available mupirocin 2 % topical ointment APPLY TO NOSTRILS TWICE DAILY - START 5 DAYS PRIOR TO SURGERY 07/25 completed Not Available Not Available Not Available furosemide 20 mg tablet TAKE 1 TABLET BY MOUTH DAILY FOR 3 DAYS 07/25 completed Not Available Not Available Not Available albuterol sulfate HFA 90 mcg/actuati on aerosol inhaler INHALE 2 PUFFS BY MOUTH 4 TIMES DAILY NEEDED FOR SHORTNESS OF BREATH 01/23 completed Not Available Not Available Not Available timolol maleate 0.5 % eye drops INSTILL 1 DROP IN BOTH EYES TWICE DAILY active Not Available Not Available No t Available losartan 100 mg tablet TAKE 1 TABLET BY MOUTH EVERY DAY 2024 active Not Available Not Available Not Avai lable fluticasone propionate 50 mcg/actuati on nasal spray,suspe nsion SHAKE LIQUID AND USE 2 SPRAYS IN EACH NOSTRIL DAILY 01/23 completed Not Available Not Available Not Available amoxicillin 875 mg-farrah chase clavulanate 125 mg tablet Take 1 tablet every 12 hours by oral route. 2024 active Not Available Not Available Not Avai lable metoprolol tartrate 25 mg tablet TAKE 1 TABLET BY MOUTH EVERY 12 HOURS active Not Available Not Available No t Available ferrous gluconate 324 mg (38 mg iron) tablet TAKE 1 TABLET BY MOUTH EVERY DAY 07/25 completed Not Available Not Available Not Available Eliquis 5 mg tablet TAKE 1 TABLET BY MOUTH EVERY 12 HOURS active Not Available Not Available No t Available Vitals Date Recorded Body height Body mass index (BMI) Body weight Respiratory rate Oxygen saturation Oxygen saturation in Arterial blood by Pulse oximetry Heart rate Systolic blood pressure Diastolic blood pressure Provider Name and Address Organization Details Last Updated DateTime 4 182.88 cm 40.7 kg/m2 019362. 14 g 20 /min 96 % 96 % 63 /min 130 mm[Hg] 78 mm[Hg] rEika Phan MA [facility] 4 10:12:32 Date Recorded Systolic blood pressure Diastolic blood pressure Systolic blood pressure Diastolic blood pressure Provider Name and Address Organization Details Last Updated DateTime 07/26/2023 150 mm[Hg] 90 mm[Hg] 160 mm[Hg] 90 mm[Hg] AMAYA Flynn Attn: Accounting ,[address] [place], [address] , [facility] 4 10:39:22 Date Recorded Body height Body mass index (BMI) Body weight Respiratory rate Oxygen saturation Oxygen saturation in Arterial blood by Pulse oximetry Heart rate Systolic blood pressure Diastolic blood pressure Provider Name and Address Organization Details Last Updated DateTime 4 182.88 cm 40.8 kg/m2 925139. 73 g 20 /min 98 % 98 % 58 /min 136 mm[Hg] 82 mm[Hg] Erika Phan MA [facility] 4 10:06:26 Date Recorded Systolic blood pressure Diastolic blood pressure Provider Name and Address Organization Details Last Updated DateTime 01/24/2024 124 mm[Hg] 80 mm[Hg] AMAYA Flynn Attn: Accounting, [place], [address], [facility] 01/24/2024 10:33:31 Date Recorded Body height Body mass index (BMI) Body weight Heart rate Oxygen saturation Oxygen saturation in Arterial blood by Pulse oximetry Systolic blood pressure Diastolic blood pressure Provider Name and Address Organization Details Last Updated DateTime 4 182.88 cm 38.9 kg/m2 830988. 01 g 67 /min 100 % 100 % 128 mm[Hg] 80 mm[Hg] Lyubov La MA [facility] 4 08:57:35 Social History Question Answer Notes LastModified by Organizat ion Details LastModified Time Tobacco Smoking Status Never Smoker Erika Phan MA null, [facility] 07/26/2023 10:09:12 Do You Have An Advance Directive? Yes Information not available 07/26/2023 What Is Your Level Of Alcohol Consumption? Occasional Information not available 07/26/2023 Are You Blind Or Do You Have Difficulty Seeing? No Glasses Information not available 07/26/2023 What Is Your Level Of Caffeine Consumption? None Information not available 07/26/2023 In The 14 Days Before Symptom Onset, Have You Had Close Contact With A Laboratory-confir med COVID-19 While That Case Was Ill? No Information not available 07/26/2023 In The 14 Days Before Symptom Onset, Have You Had Close Contact With A Person Who Is Under Investigation For COVID-19 While That Person Was Ill? No Information not available 07/26/2023 Have You Been To An Area Known To Be High Risk For COVID-19? No Information not available 07/26/2023 Are You Deaf Or Do You Have Serious Difficulty Hearing? No Information not available 07/26/2023 What Type Of Diet Are You Following? REGULAR Information not available 07/26/2023 Are There Any Guns Present In Your Home? No Information not available 07/26/2023 What Was The Date Of Your Most Recent Tobacco Screening? 01/24/2024 Information not available 01/24/2024 What Is Your Relationship Status? Information not available 07/26/2023 Do You Use Your Seat Belt Or Car Seat Routinely? Yes Information not available 07/26/2023 Do You Have Smoke And Carbon Monoxide Detectors In Your Home? Yes Information not available 07/26/2023 Do You Feel Stressed (tense, Restless, Nervous, Or Anxious, Or Unable To Sleep At Night)? [id number] Information not available 07/26/2023 Do You Use Any Illicit Or Recreational Drugs? No Information not available 07/26/2023 Do You Use Sunscreen Routinely? No Information not available 07/26/2023 Has Tobacco Cessation Counseling Been Provided? Yes Information not available 07/26/2023 On What Date Was Tobacco Cessation Counseling Provided? 02/23/2024 crevisma Information not available 02/23/2024 Do You Or Have You Ever Used Any Other Forms Of Tobacco Or Nicotine? No Information not available 07/26/2023 Sex: Male Functional Status Question Answer Note LastModified by Organization D etails LastModified Time Are you able to care for yourself? Yes Information n ot available 07/26/2023 What is your exercise level? None Information not available 07/26/2023 Mental Status None recorded. Family History Relationship Description Onset Age of this Age Resolved Age Notes LastModified by Organization Details LastModified Time Maternal Uncle Cerebrovascu lar accident [email or web address] Not available 10:51:47 Father Cerebrovascu lar accident [email or web address] Not available 10:51:47 Medical History Condition Response Coronary Artery Disease N Other N Atrial Fibrillation N High Blood Pressure Y Thyroid Problems N Kidney or Bladder Problems N Depression N COPD N Blood Clots N GI Problems N Skin Problems N Anemia N Heart Attack ([place]) N Diabetes N Anxiety Disorder N Muscle, Joint, or Bone Problems Y Seizures/Epilepsy N Acid Reflux (GERD) N Cancer Y Stroke N Allergies N Asthma N High Cholesterol Y Hepatitis N Liver Disease N Headaches N Osteoporosis N Heart Failure N Immunizations Vaccine Type Date Status Note Provider Nam e and Address Organization Details Recorded Time zoster recombinant 09/10/2020 completed [place]IO [place] - [facility] 01/23/2024 10:13:08 zoster recombinant 02/19/2021 [place] [facility] 01/23/2024 10:13:08 Influenza, adjuvanted, quadrivalent, PF 12/31/2021 [place] ROS[place] [facility] 01/23/2024 10:13:08 COVID-19, mRNA, LNP-S, PF, 100 mcg/0.5mL dose or 50 mcg/0.25mL dose 05/11/2020 [place] ROS[place] [facility] 01/23/2024 10:13:08 COVID-19, mRNA, LNP-S, PF, 100 mcg/0.5mL dose or 50 mcg/0.25mL dose 06/08/2020 completed ROSIO [place] [facility] 01/23/2024 10:13:08 COVID-19, mRNA, LNP-S, PF, 100 mcg/0.5mL dose or 50 mcg/0.25mL dose 02/19/2021 [place] ROS[place] [facility] 01/23/2024 10:13:08 COVID-19, mRNA, LNP-S, bivalent, PF, 50 mcg/0.5 mL or 25mcg/0.25 mL dose 12/31/2021 [place] [facility] 01/23/2024 10:13:08 RSV, bivalent, protein subunit RSVpreF, diluent reconstituted, 0.5 mL, PF 01/13/2023 [place] [facility] 01/23/2024 10:13:08 COVID-19, mRNA, LNP-S, PF, tommy-sucrose, 30 mcg/0.3 mL 01/13/2023 [place] [facility] 01/23/2024 10:13:08 Tdap 11/22/2020 [place] [facility] 01/23/2024 10:13:08 Past Encounters Encounter ID Performer Location Encounter Start Date Encounter Closed Date Diagnosis/Indication Diagnosis SNOMED-CT Code Diagnosis ICD10 Code Diagnosis Note [id number] AMAYA Flynn [facility] [employer] [address] [place] [address] 07/26/2023 09:58:22 07/26/2023 11:33:49 Prostate specific antigen above reference range 896799558 R97.20 seeing at [facility]. PSA is 10 range on current labs, and patient is planning to schedule with urology. hx of negative biopsy x 2. Benign ess ential hypertension 7962725 I10 160/90 on few checks today: boost to losartan 100mg daily. continue metoprolol tartrate 25mg bid. Atrial flutter 5112887 I 48.92 Stable. rate controlled . on eliquis 5mg bid. Cardiology was Dr. Le but he is moving so new provider is taking over. following every [address] Varma in Dec next appt Long-term drug therapy 193938424 Z79.899 full lab panel due in Dec. Mixed hyperlipidemia 267 710464 E78.2 stable on atorvastat in 10mg daily. due for lipids in dec. Body mass index 40+ - severely obese 175497260 Z68.41 Obesity 223505742 E66.9 discussed healthy diet, exercise, controllin g carbohydra mauricio and added sugars in the diet [id number] AMAYA Flynn [facility] [employer] [address] [place] [address] 01/24/2024 10:00:21 01/24/2024 10:37:17 Benign essential hypertension 9866161 I10 stable on losartan 100mg daily. continue metoprolol tartrate 25mg bid. Mixed hyperlipidemia 267 435827 E78.2 stable on atorvastat in 10mg daily. Repeat fasting lipids in July Atrial flutter 0262954 I 48.92 Stable. rate controlled . on eliquis 5mg bid. Cardiology was Dr. Le but he is moving so new provider is taking over. following every [address] Varma in Dec next appt Prostate s pecific antigen above reference range 527617204 R97.20 seeing at [facility]. PSA is 10 range on current labs, and patient is planning to schedule with urology. hx of negative biopsy x 2. Long-term drug therapy 935053843 Z79.899 Next labs are due July 15 for routine evaluation Body mass index 40+ - severely obese 760198220 Z68.41 BMI is 40.8 Obesity 188541145 E66.9 discussed healthy diet, exercise, controllin g carbohydra mauricio and added sugars in the diet Anemia 114360676 D64.9 Anemia noted on recent labs we will refer him for iron studies and repeat CBC and then check this again in July as well. He currently is still up-to-date on GI evaluation s. [id number] AMAYA Flynn [facility] [employer] [facility] [address] [place] [address] 02/23/2024 08:52:21 02/23/2024 09:35:39 Benign essential hypertension 0430177 I10 128/80, stable on losartan 100mg daily. continue metoprolol tartrate 25mg bid. Mixed hyperlipidemia 267 410715 E78.2 stable on atorvastat in 10mg daily. Repeat fasting lipids in July Atrial flutter 0749640 I 48.92 Stable. rate controlled . on eliquis 5mg bid. Cardiology was Dr. Le but he is moving so new provider is taking over. following every [address] Varma Prostate s pecific antigen above reference range 940567701 R97.20 seeing at [facility]. PSA is 10 range on current labs, and patient is planning to schedule with urology. hx of negative biopsy x 2. Long-term drug therapy 385302690 Z79.899 Next labs are due July 15 for routine evaluation Body mass index 40+ - severely obese 043887450 Z68.41 BMI is 40.8 Obesity 828920429 E66.9 discussed healthy diet, exercise, controllin g carbohydra mauricio and added sugars in the diet Health Concerns Section Related Observation LastModified by Organization Detai ls LastModified Time None Recorded Concern Status LastModified by Organization Details LastModified Time None Recorded Advance Directives Directive Y: Payers Encounter Date Sequence Insurance Name Policy Number Policy Mayorga Covered Member ID Mayorga Member ID Guarantor Name 07/26/2023 1 [place] Lang Cardona [id number] 1 Lang Cardona 07/26/2023 2 [employer] [facility] (MEDICARE SUPPLEMENT) Lang Birminghamaugh [id number] Lang Cardona 01/24/2024 2 [employer] (MEDICARE SUPPLEMENT) Lang Michaelgh [id number] Lang Cardona 01/24/2024 [place] [facility] Lang Cardona [id number] 1 Lang Cardona 02/23/2024 1 [place] Lang Cardona [id number] 1 Lang Cardona 02/23/2024 2 [employer] (MEDICARE SUPPLEMENT) Lang Cardona [id number] Lang Cardona Notes Date Note Type Note Provider Name and Address Organization Details Recorded Time 4 text/html Atrial FibrillationReported bypatient.Notes:Atrial flutter is the diagnosis. on eliquis 5mg bid.HyperlipidemiaReporte d bypatient.Notes:stable on atorvastatin 10mg daily.HypertensionReporte d bypatient.Notes:stable on losartan 100mg daily and metoprolol tartrate 25mg bid Hx of right SAMY.Hx of prostate biopsy x 2 . benign. elevated PSA on recent labs. AMAYA Flynn Attn: Accounting[address] [place], [address], [facility] 08/08/2023 19:08:01 4 text/html AnemiaReported bypatient.Notes:Recent labs show hemoglobin at 12.6, hematocrit 38.6 and red blood cells 3.78 with an MCV of 102 and an MCH of 33.3. White blood cells are also low at 3.3Atrial FibrillationReported bypatient.Notes:Atrial flutter is the diagnosis. on eliquis 5mg bid.HyperlipidemiaReporte d bypatient.Notes:stable on atorvastatin 10mg daily.HypertensionReporte d bypatient.Notes:stable on losartan 100mg daily and metoprolol tartrate 25mg bid Hx of right SAMY.Hx of prostate biopsy x 2 . benign. elevated PSA on recent labs. AMAYA Flynn Attn: Accounting[address] [place], [address], [facility] 02/11/2024 10:35:26 4 text/html Atrial FibrillationReported bypatient.Notes:Atrial flutter is the diagnosis. on eliquis 5mg bid.HyperlipidemiaReporte d bypatient.Notes:stable on atorvastatin 10mg daily.HypertensionReporte d bypatient.Notes:stable on losartan 100mg daily and metoprolol tartrate 25mg bid Recent hospital stay.Discharge diagnosis included new onset congestive heart failure with a BNP of 3010 ejection fraction 65-70% with diastolic function abnormal. Cardiology was consulted. Paroxysmal a flutter continuing metoprolol and Eliquis. For diastolic heart failure continuing furosemide 40 mg daily was suggested. He will follow up with Cardiology upon discharge Hx of right SAMY.Hx of prostate biopsy x 2 . benign. elevated PSA on recent labs. AMAYA Flynn Attn: Accounting,[address] [facility], [place], [address], [facility] 03/09/2024 12:53:27
--- OUTSIDE RECORDS SUMMARY | 2024-06-19 16:29 | XMS_ITS | Clinical Summary ---
Author Organization [facility] Address [address] [place], [place] [address] Care Team Providers Care Shank Cementer Hand Name Role Phone Unavailable Primary Care Provider Unavailabl e Social History Tobacco Use Types Packs/Day Years Used Date Smoking Tobacco: Never Assessed Sex and Gender Information Value Date Recorded Sex Assigned at Not on file Legal Sex Male 7:59 PM CDT Gender Identity Not on file Sexual Orientation Not on file Plan of Treatment Health Maintenance Due Date Last Done Comments Colorectal Cancer Screening Colonoscopy (10 Years) 1950 Hepatitis C 1969 DTaP, Tdap and Td Vaccines ( 1 - Tdap) 1970 Zoster Vaccines (1 of 2) 2001 Annual Medicare Wellness Visit 2016 Pneumococcal Vaccine: 65+ Ye ars (1 of 1 - PCV) 2016 COVID-19 Vaccine ( - 2023-2 5 season) 2023 Influenza Adult (#1) 2024 RSV Immunization or 60+ Years (1 - 1-dose 75+ series) 2026 Meningococcal B Vaccine Aged Out No l onger eligible based on patient's age to complete this topic Meningococcal Vaccine Aged Out No susana gissel eligible based on patient's age to complete this topic RSV Immunizations Under 20 Months Aged Out No longer eligible based on patient's age to complete this topic Additional Health Concerns Infection Onset Date Last Indicated ESBL - Extended Spectrum Bet a-lactamase Comment:12/24/20 +ESBL Urine 12/27/2020 12/27/2020 Insurance MEDICARE
--- OUTSIDE RECORDS SUMMARY | 2024-06-19 16:29 | XMS_ITS | Data Portability ---
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 Plan of Treatment Reminders Order Date Submit Date Provider Last Modified By Organization Details Last Modified Time Details Appointments None recorded. Lab PSA, total + free, serum or plasma 2022 024 [email or web address] [facility], [address] [place] [address], [id number], 4 18:09:21 lipid panel, serum 2022 024 [email or web address] [facility], [address] [place] [address], [address], 4 18:09:20 hepatic function panel, serum 2022 024 [email or web address] [facility], [address] [place] [address], [address], 4 18:09:20 BMP, serum or plasma 2022 024 [facility], [address] [place] [address], [address], 4 18:09:20 ferritin, serum or plasma 2022 024 [email or web address] [facility], [address] [place] [address], [address], 4 18:09:20 iron + total iron-ana ng capacity (TIBC), serum 2022 024 [email or web address] [facility], [address] [facility] [address], [place], [address], 4 18:09:21 CBC w/ auto diff 2022 024 [email or web address] [facility], [address] [facility] [address], [place], [address], 4 18:09:21 Referral None recorded. Procedures None recorded. Surgeries None recorded. Imaging None recorded. Medication Orders ferrous gluconate 324 mg (38 mg iron) tablet 2022 023 [id number], [address] , [place], [place], [id number], 3 11:17:27 Patient TargetsNo targets recorded. Patient InstructionsNo instructions recorded. Reason for Referral None Reported. Results Created Date Observation Date Name Description Value Unit Range Abnormal Flag Note LastModifiedBy Organization Detail LastModifiedTime 01/09/2001/11/2021 URINE CULTU RECELE urine culture, routine final report abnormal Not Available [facility] ([facility]) [address] [place], [address], 01/12/2021 03:07:19 01/09/20 21 01/11/2021 URINE CULTU RECELE NE result 1 escher ichia coli abnormal Multi -Drug Resis tant Organ ism Great er than 100,0 00 colon y formi ng units per mL Susce ptibi lity profi le is consi stent with a proba ble ESBL. Not Available [facility] ([facility]) [address] [place], [address], 01/12/2021 03:07:19 01/09/20 21 01/11/2021 URINE CULTU RECELE NE antimicrobia l susceptibili ty commen t S = Susce ptibl e; I = Inter media te; R = Resis tant P = Posit aaron; N = Negat aaron MICS are expre ssed in micro grams per mL Antib iotic RSLT# 1 RSLT# 2 RSLT# 3 RSLT# 4 Amoxi cilli n/Cla vulan ic Acid I Ampic illin R Cefaz josue R Cefep cherelle R Ceftr iaxon e R Cefur oxime R Cipro floxa alia S Ertap enem S Genta micin S Imipe nem S Levof loxac in S Merop enem S Nitro furan toin S Piper acill in/Ta zobac mohan S Tetra cycli ne R Tobra mycin S Trime thopr im/Miller lfa R Not Available [facility] ([facility]) [address] [place], [address], 01/12/2021 03:07:19 01/09/2001/09/2021 HEMOG LOBIN A1C hemoglobin A1C 5.3 % 4.8-5. 6 Predi abete s: 5.7 - 6.4 Diabe mauricio: >6.4 Glyce ashtyn contr ol for adult s with diabe mauricio: <7.0 Not Available [facility] ([facility]) [address] [place], [address], 01/12/2021 03:07:19 01/09/20 21 01/09/2021 HEPAT IC FUNCT ION PANEL (7) ALT (SGPT) 18 IU/L 0-44 Not Available [facility] ([facility]) [address] [place], [address], 01/12/2021 03:07:18 01/09/20 21 01/09/2021 HEPAT IC FUNCT ION PANEL (7) protein, total 6.6 g/dL 6.0-8. 5 Not Available [facility] ([facility]) [address] [place], [address], 01/12/2021 03:07:18 01/09/20 21 01/09/2021 HEPAT IC FUNCT ION PANEL (7) albumin 4.2 g/dL 3.8-4. 8 Not Available [facility] ([facility]) [address] [place], [address], 01/12/2021 03:07:18 01/09/20 21 01/09/2021 HEPAT IC FUNCT ION PANEL (7) bilirubin, total 0.3 mg/dL 0.0-1. 2 Not Available [facility] ([facility]) [address] [place], [address], 01/12/2021 03:07:18 01/09/20 21 01/09/2021 HEPAT IC FUNCT ION PANEL (7) bilirubin, direct 0.13 mg/dL 0.00-0 .40 Not Available [facility] ([facility]) [address] [place], [address], 01/12/2021 03:07:18 01/09/20 21 01/09/2021 HEPAT IC FUNCT ION PANEL (7) alkaline phosphatase 178 IU/L 44-121 above high normal Ple ase note refer ence inter lauren del real e Not Available [facility] ([facility]) [address] [place], [address], 01/12/2021 03:07:18 01/09/20 21 01/09/2021 HEPAT IC FUNCT ION PANEL (7) AST (SGOT) 13 IU/L 0-40 Not Available [facility] ([facility]) [address] [place], [address], 01/12/2021 03:07:18 01/09/20 21 01/09/2021 LIPID PANEL cholesterol, total 149 mg/dL 100-19 9 Not Available [facility] ([facility]) [address] [place], [address], 01/12/2021 03:07:18 01/09/20 21 01/09/2021 LIPID PANEL triglyceride s 121 mg/dL 0-149 Not Available [facility] ([facility]) [address] [facility], [place], [address], 01/12/2021 03:07:18 01/09/20 21 01/09/2021 LIPID PANEL HDL cholesterol 45 mg/dL >39 Not Available [facility] ([facility]) [address] [place], [address], 01/12/2021 03:07:18 01/09/20 21 01/09/2021 LIPID PANEL VLDL cholesterol flor 22 mg/dL 5-40 Not Available [facility] ([facility]) [address] [place], [address], 01/12/2021 03:07:18 01/09/20 21 01/09/2021 LIPID PANEL LDL chol calc ([facility]) 82 mg/dL 0-99 Not Available [facility] ([facility]) [address] [facility], [place], [address], 01/12/2021 03:07:18 01/09/20 21 01/09/2021 LIPID PANEL comment: nnp Not Available [facility] ([facility]) [address] [facility], [place], [address], 01/12/2021 03:07:18 01/09/20 21 01/09/2021 URINA LYSIS , COMPL ETE specific gravity 1.010 1.005- 1.030 Not Available [facility] ([facility]) [address] [place], [address], 01/12/2021 03:07:17 01/09/20 21 01/09/2021 URINA LYSIS , COMPL ETE pH 6.0 5.0-7. 5 Not Available [facility] ([facility]) [address] [place], [address], 01/12/2021 03:07:17 01/09/20 21 01/09/2021 URINA LYSIS , COMPL ETE urine-color yellow yellow Not Available [facility] ([facility]) [address] [facility], [place], [address], 01/12/2021 03:07:17 01/09/2001/09/2021 URINA LYSIS , COMPL ETE appearance clear clear Not Available [facility] ([facility]) [address] [facility], [place], [address], 01/12/2021 03:07:17 01/09/2001/09/2021 URINA LYSIS , COMPL ETE WBC esterase 1+ negati ve abnormal Not Available [facility] ([facility]) [address] [facility], [place], [address], 01/12/2021 03:07:17 01/09/2001/09/2021 URINA LYSIS , COMPL ETE protein negati ve negati ve/tra ce Not Available [facility] ([facility]) [address] [place], [address], 01/12/2021 03:07:17 01/09/20 21 01/09/2021 URINA LYSIS , COMPL ETE glucose negati ve negati ve Not Available [facility] ([facility]) [address] [facility], [place], [address], 01/12/2021 03:07:17 01/09/20 21 01/09/2021 URINA LYSIS , COMPL ETE ketones negati ve negati ve Not Available [facility] ([facility]) [address] [place], [address], 01/12/2021 03:07:17 01/09/2001/09/2021 URINA LYSIS , COMPL ETE occult blood negati ve negati ve Not Available [facility] ([facility]) [address] [place], [address], 01/12/2021 03:07:17 01/09/20 21 01/09/2021 URINA LYSIS , COMPL ETE bilirubin negati ve negati ve Not Available [facility] ([facility]) [address] [facility], [place], [address], 01/12/2021 03:07:17 01/09/20 21 01/09/2021 URINA LYSIS , COMPL ETE urobilinogen ,semi-qn 0.2 mg/dL 0.2-1. 0 Not Available [facility] ([facility]) [address] [facility], [place], [address], 01/12/2021 03:07:17 01/09/20 21 01/09/2021 URINA LYSIS , COMPL ETE nitrite, urine negati ve negati ve Not Available [facility] ([facility]) [address] [facility], [place], [address], 01/12/2021 03:07:17 01/09/20 21 01/09/2021 URINA LYSIS , COMPL ETE microscopic examination see below: Micro scopi c was indic ated and was perfo rmed. Not Available [facility] ([facility]) [address] [facility], [place], [address], 01/12/2021 03:07:17 01/09/20 21 01/09/2021 URINA LYSIS , COMPL ETE WBC 0-5 /hpf 0 - 5 Not Available [facility] ([facility]) [address] [facility], [place], [address], 01/12/2021 03:07:17 01/09/20 21 01/09/2021 URINA LYSIS , COMPL ETE RBC none seen /hpf 0 - 2 Not Available [facility] ([facility]) [address] [place], [address], 01/12/2021 03:07:17 01/09/20 21 01/09/2021 URINA LYSIS , COMPL ETE epithelial cells (non renal) none seen /hpf 0 - 10 Not Available [facility] ([facility]) [address] [place], [address], 01/12/2021 03:07:17 01/09/20 21 01/09/2021 URINA LYSIS , COMPL ETE epithelial cells (renal) nnp Not Available [facility] ([facility]) [address] [facility], [place], [address], 01/12/2021 03:07:17 01/09/2001/09/2021 URINA LYSIS , COMPL ETE casts none seen /lpf none seen Not Available [facility] ([facility]) [address] [facility], [place], [address], 01/12/2021 03:07:17 01/09/2001/09/2021 URINA LYSIS , COMPL ETE cast type nnp Not Available [facility] ([facility]) [address] [facility], [place], [address], 01/12/2021 03:07:17 01/09/2001/09/2021 URINA LYSIS , COMPL ETE crystals nnp Not Available [facility] ([facility]) [address] [facility], [place], [address], 01/12/2021 03:07:17 01/09/2001/09/2021 URINA LYSIS , COMPL ETE crystal type nnp Not Available [facility] ([facility]) [address] [facility], [place], [address], 01/12/2021 03:07:17 01/09/2001/09/2021 URINA LYSIS , COMPL ETE mucus threads nnp Not Available [facility] ([facility]) [address] [facility], [place], [address], 01/12/2021 03:07:17 01/09/2001/09/2021 URINA LYSIS , COMPL ETE bacteria none seen none seen/f ew Not Available [facility] ([facility]) [address] [facility], [place], [address], 01/12/2021 03:07:17 01/09/20 21 01/09/2021 URINA LYSIS , COMPL ETE yeast nnp Not Available [facility] ([facility]) [address] [facility], [place], [address], 01/12/2021 03:07:17 01/09/20 21 01/09/2021 URINA LYSIS , COMPL ETE trichomonas nnp Not Available [facility] ([facility]) [address] [facility], [place], [address], 01/12/2021 03:07:17 01/09/2001/09/2021 URINA LYSIS , COMPL ETE comment nnp Not Available [facility] ([facility]) [address] [facility], [place], [address], 01/12/2021 03:07:17 01/09/2001/09/2021 URINA LYSIS , COMPL ETE microscopic examination nnp Not Available [facility] ([facility]) [address] [facility], [place], [address], 01/12/2021 03:07:17 01/09/2001/09/2021 CBC WITH DIFFE RENTI AL/PL ATELE T lymphs 13 % not estab. Not Available [facility] ([facility]) [address] [facility], [place], [address], 01/12/2021 03:07:17 01/09/20 21 01/09/2021 CBC WITH DIFFE RENTI AL/PL ATELE T monocytes 8 % not estab. Not Available [facility] ([facility]) [address] [facility], [place], [address], 01/12/2021 03:07:17 01/09/20 21 01/09/2021 CBC WITH DIFFE RENTI AL/PL ATELE T eos 2 % not estab. Not Available [facility] ([facility]) [address] [place], [address], 01/12/2021 03:07:17 01/09/20 21 01/09/2021 CBC WITH DIFFE RENTI AL/PL ATELE T basos 1 % not estab. Not Available [facility] ([facility]) [address] [facility], [place], [address], 01/12/2021 03:07:17 01/09/20 21 01/09/2021 CBC WITH DIFFE RENTI AL/PL ATELE T immature cells nnp Not Available [facility] ([facility]) [address] [place], [address], 01/12/2021 03:07:17 01/09/20 21 01/09/2021 CBC WITH DIFFE RENTI AL/PL ATELE T neutrophils (absolute) 6.3 x10e3 /uL 1.4-7. 0 Not Available [facility] ([facility]) [address] [place], [address], 01/12/2021 03:07:17 01/09/20 21 01/09/2021 CBC WITH DIFFE RENTI AL/PL ATELE T lymphs (absolute) 1.0 x10e3 /uL 0.7-3. 1 Not Available [facility] ([facility]) [address] [place], [address], 01/12/2021 03:07:17 01/09/20 21 01/09/2021 CBC WITH DIFFE RENTI AL/PL ATELE T monocytes(ab solute) 0.6 x10e3 /uL 0.1-0. 9 Not Available [facility] ([facility]) [address] [place], [address], 01/12/2021 03:07:17 01/09/20 21 01/09/2021 CBC WITH DIFFE RENTI AL/PL ATELE T eos (absolute) 0.1 x10e3 /uL 0.0-0. 4 Not Available [facility] ([facility]) [address] [place], [address], 01/12/2021 03:07:17 01/09/20 21 01/09/2021 CBC WITH DIFFE RENTI AL/PL ATELE T baso (absolute) 0.1 x10e3 /uL 0.0-0. 2 Not Available [facility] ([facility]) [address] [facility], [place], [address], 01/12/2021 03:07:17 01/09/20 21 01/09/2021 CBC WITH DIFFE RENTI AL/PL ATELE T immature granulocytes 1 % not estab. Not Available [facility] ([facility]) [address] [facility], [place], [address], 01/12/2021 03:07:17 01/09/20 21 01/09/2021 CBC WITH DIFFE RENTI AL/PL ATELE T immature grans (abs) 0.0 x10e3 /uL 0.0-0. 1 Not Available [facility] ([facility]) [address] [facility], [place], [address], 01/12/2021 03:07:17 01/09/20 21 01/09/2021 CBC WITH DIFFE RENTI AL/PL ATELE T NRBC nnp Not Available [facility] ([facility]) [address] [facility], [place], [address], 01/12/2021 03:07:17 01/09/20 21 01/09/2021 CBC WITH DIFFE RENTI AL/PL ATELE T hematology comments: nnp Not Available [facility] ([facility]) [address] [facility], [place], [address], 01/12/2021 03:07:17 01/09/20 21 01/09/2021 CBC WITH DIFFE RENTI AL/PL ATELE T WBC 8.2 x10e3 /uL 3.4-10 .8 Not Available [facility] ([facility]) [address] [place], [address], 01/12/2021 03:07:17 01/09/20 21 01/09/2021 CBC WITH DIFFE RENTI AL/PL ATELE T RBC 3.60 x10e6 /uL 4.14-5 .80 below low normal Not Available [facility] ([facility]) [address] [place], [address], 01/12/2021 03:07:17 01/09/20 21 01/09/2021 CBC WITH DIFFE RENTI AL/PL ATELE T hemoglobin 10.6 g/dL 13.0-1 7.7 below low normal Not Available [facility] ([facility]) [address] [place], [address], 01/12/2021 03:07:17 01/09/20 21 01/09/2021 CBC WITH DIFFE RENTI AL/PL ATELE T hematocrit 33.1 % 37.5-5 1.0 below low normal Not Available [facility] ([facility]) [address] [place], [address], 01/12/2021 03:07:17 01/09/2001/09/2021 CBC WITH DIFFE RENTI AL/PL ATELE T MCV 92 fL 79-97 Not Available [facility] ([facility]) [address] [place], [address], 01/12/2021 03:07:17 01/09/2001/09/2021 CBC WITH DIFFE RENTI AL/PL ATELE T MCH 29.4 pg 26.6-3 3.0 Not Available [facility] ([facility]) [address] [place], [address], 01/12/2021 03:07:17 01/09/20 21 01/09/2021 CBC WITH DIFFE RENTI AL/PL ATELE T MCHC 32.0 g/dL 31.5-3 5.7 Not Available [facility] ([facility]) [address] [place], [address], 01/12/2021 03:07:17 01/09/20 21 01/09/2021 CBC WITH DIFFE RENTI AL/PL ATELE T RDW 13.6 % 11.6-1 5.4 Not Available [facility] ([facility]) [address] [facility], [place], [address], 01/12/2021 03:07:17 01/09/20 21 01/09/2021 CBC WITH DIFFE RENTI AL/PL ATELE T platelets 457 x10e3 /uL 150-45 0 above high normal Not Available [facility] ([facility]) [address] [facility], [place], [address], 01/12/2021 03:07:17 01/09/20 21 01/09/2021 CBC WITH DIFFE RENTI AL/PL ATELE T neutrophils 75 % not estab. Not Available [facility] ([facility]) [address] [facility], [place], [address], 01/12/2021 03:07:17 01/09/20 21 01/09/2021 TSH+F REE T4 TSH 6.650 uIU/m L 0.450- 4.500 above high normal Not Available [facility] ([facility]) [address] [facility], [place], [address], 01/12/2021 03:07:16 01/09/2001/09/2021 TSH+F REE T4 T4,free(dire ct) 1.36 NG/dL 0.82-1 .77 Not Available [facility] ([facility]) [address] [place], [address], 01/12/2021 03:07:16 01/30/20 21 01/30/2021 URINE CULTU RE, ROUTI NE urine culture, routine final report Not Available [facility] ([facility]) [address] [place], [address], 01/31/2021 03:06:20 01/30/20 21 01/30/2021 URINE CULTU RE, ROUTI NE result 1 commen t Mixed uroge nital libby Less than 10,00 0 colon ies/m L Not Available [facility] ([facility]) [address] [place], [address], 01/31/2021 03:06:20 01/30/20 21 01/30/2021 MARU TIN ferritin 151 NG/mL 30-400 Not Available [facility] ([facility]) [address] [place], [address], 01/31/2021 03:06:20 01/30/2001/30/2021 IRON AND TIBC iron bind.cap.(TI BC) 249 ug/dL 250-45 0 below low normal Not Available [facility] ([facility]) [address] [place], [address], 01/31/2021 03:06:19 01/30/20 21 01/30/2021 IRON AND TIBC UIBC 221 ug/dL 111-34 3 Not Available [facility] ([facility]) [address] [place], [address], 01/31/2021 03:06:19 01/30/20 21 01/30/2021 IRON AND TIBC iron 28 ug/dL 38-169 below low normal Not Available [facility] ([facility]) [address] [place], [address], 01/31/2021 03:06:19 01/30/20 21 01/30/2021 IRON AND TIBC iron saturation 11 % 15-55 below low normal Not Available [facility] ([facility]) [address] [place], [address], 01/31/2021 03:06:19 01/30/20 21 01/30/2021 URINA LYSIS , COMPL ETE specific gravity 1.026 1.005- 1.030 Not Available [facility] ([facility]) [address] [facility], [place], [address], 01/31/2021 03:06:18 01/30/2001/30/2021 URINA LYSIS , COMPL ETE pH 5.5 5.0-7. 5 Not Available [facility] ([facility]) [address] [facility], [place], [address], 01/31/2021 03:06:18 01/30/2001/30/2021 URINA LYSIS , COMPL ETE urine-color yellow yellow Not Available [facility] ([facility]) [address] [facility], [place], [address], 01/31/2021 03:06:18 01/30/2001/30/2021 URINA LYSIS , COMPL ETE appearance clear clear Not Available [facility] ([facility]) [address] [place], [address], 01/31/2021 03:06:18 01/30/2001/30/2021 URINA LYSIS , COMPL ETE WBC esterase negati ve negati ve Not Available [facility] ([facility]) [address] [facility], [place], [address], 01/31/2021 03:06:18 01/30/2001/30/2021 URINA LYSIS , COMPL ETE protein 1+ negati ve/tra ce abnormal Not Available [facility] ([facility]) [address] [place], [address], 01/31/2021 03:06:18 01/30/2001/30/2021 URINA LYSIS , COMPL ETE glucose negati ve negati ve Not Available [facility] ([facility]) [address] [place], [address], 01/31/2021 03:06:18 01/30/2001/30/2021 URINA LYSIS , COMPL ETE ketones negati ve negati ve Not Available [facility] ([facility]) [address] [facility], [place], [address], 01/31/2021 03:06:18 01/30/2001/30/2021 URINA LYSIS , COMPL ETE occult blood negati ve negati ve Not Available [facility] ([facility]) [address] [place], [address], 01/31/2021 03:06:18 01/30/2001/30/2021 URINA LYSIS , COMPL ETE bilirubin negati ve negati ve Not Available [facility] ([facility]) [address] [place], [address], 01/31/2021 03:06:18 01/30/2001/30/2021 URINA LYSIS , COMPL ETE urobilinogen ,semi-qn 0.2 mg/dL 0.2-1. 0 Not Available [facility] ([facility]) [address] [place], [address], 01/31/2021 03:06:18 01/30/2001/30/2021 URINA LYSIS , COMPL ETE nitrite, urine negati ve negati ve Not Available [facility] ([facility]) [address] [place], [address], 01/31/2021 03:06:18 01/30/2001/30/2021 URINA LYSIS , COMPL ETE microscopic examination see below: Micro scopi c was indic ated and was perfo rmed. Not Available [facility] ([facility]) [address] [place], [address], 01/31/2021 03:06:18 01/30/2001/30/2021 URINA LYSIS , COMPL ETE WBC 0-5 /hpf 0 - 5 Not Available [facility] ([facility]) [address] [place], [address], 01/31/2021 03:06:18 01/30/20 21 01/30/2021 URINA LYSIS , COMPL ETE RBC none seen /hpf 0 - 2 Not Available [facility] ([facility]) [address] [facility], [place], [address], 01/31/2021 03:06:18 01/30/20 21 01/30/2021 URINA LYSIS , COMPL ETE epithelial cells (non renal) 0-10 /hpf 0 - 10 Not Available [facility] ([facility]) [address] [facility], [place], [address], 01/31/2021 03:06:18 01/30/2001/30/2021 URINA LYSIS , COMPL ETE epithelial cells (renal) nnp Not Available [facility] ([facility]) [address] [facility], [place], [address], 01/31/2021 03:06:18 01/30/2001/30/2021 URINA LYSIS , COMPL ETE casts none seen /lpf none seen Not Available [facility] ([facility]) [address] [facility], [place], [address], 01/31/2021 03:06:18 01/30/2001/30/2021 URINA LYSIS , COMPL ETE cast type nnp Not Available [facility] ([facility]) [address] [facility], [place], [address], 01/31/2021 03:06:18 01/30/2001/30/2021 URINA LYSIS , COMPL ETE crystals nnp Not Available [facility] ([facility]) [address] [facility], [place], [address], 01/31/2021 03:06:18 01/30/2001/30/2021 URINA LYSIS , COMPL ETE crystal type nnp Not Available [facility] ([facility] [address] [facility], [place], [address], 01/31/2021 03:06:18 01/30/20 21 01/30/2021 URINA LYSIS , COMPL ETE mucus threads nnp Not Available [facility] ([facility]) [address] [facility], [place], [address], 01/31/2021 03:06:18 01/30/20 21 01/30/2021 URINA LYSIS , COMPL ETE bacteria none seen none seen/f ew Not Available [facility] ([facility]) [address] [facility], [place], [address], 01/31/2021 03:06:18 01/30/2001/30/2021 URINA LYSIS , COMPL ETE yeast nnp Not Available [facility] ([facility]) [address] [facility], [place], [address], 01/31/2021 03:06:18 01/30/2001/30/2021 URINA LYSIS , COMPL ETE trichomonas nnp Not Available [facility] ([facility]) [address] [facility], [place], [address], 01/31/2021 03:06:18 01/30/2001/30/2021 URINA LYSIS , COMPL ETE comment nnp Not Available [facility] ([facility]) [address] [facility], [place], [address], 01/31/2021 03:06:18 01/30/2001/30/2021 URINA LYSIS , COMPL ETE microscopic examination nnp Not Available [facility] ([facility] [address] [facility], [place], [address], 01/31/2021 03:06:18 04/27/19 22 04/28/2021 BASIC METAB OLIC PANEL (8) glucose 89 mg/dL 65-99 Not Available [facility] ([facility]) [address] [facility], [place], [address], 04/28/2021 05:09:04 04/27/19 22 04/28/2021 BASIC METAB OLIC PANEL (8) BUN 17 mg/dL 8-27 Not Available [facility] ([facility]) [address] [facility], [place], [address], 04/28/2021 05:09:04 04/27/19 22 04/28/2021 BASIC METAB OLIC PANEL (8) creatinine 1.33 mg/dL 0.76-1 .27 above high normal Not Available [facility] ([facility]) [address] [facility], [place], [address], 04/28/2021 05:09:04 04/27/19 22 04/28/2021 BASIC METAB OLIC PANEL (8) eGFR if nonafricn AM 54 mL/mi n/1.7 3 >59 below low normal Not Available [facility] ([facility]) [address] [facility], [place], [address], 04/28/2021 05:09:04 04/27/19 22 04/28/2021 BASIC METAB OLIC PANEL (8) eGFR if africn AM 62 mL/mi n/1.7 3 >59 In accor dance with recom menda tions from the NKF-A SN Task force , Lex damico is in the proce ss of updat ing its eGFR calcu latio n to the 2020 CKD-E PI creat inine equat ion that estim ates kidne y funct ion witho ut a race varia ble. Not Available [facility] ([facility]) [address] [facility], [place], [address], 04/28/2021 05:09:04 04/27/19 22 04/28/2021 BASIC METAB OLIC PANEL (8) BUN/creatini ne ratio 13 10-24 Not Available [facility] ([facility]) [address] [facility], [place], [address], 04/28/2021 05:09:04 04/27/19 22 04/28/2021 BASIC METAB OLIC PANEL (8) sodium 143 mmol/ L 134-14 4 Not Available [facility] ([facility]) [address] [place], [address], 04/28/2021 05:09:04 04/27/19 22 04/28/2021 BASIC METAB OLIC PANEL (8) potassium 4.5 mmol/ L 3.5-5. 2 Not Available [facility] ([facility]) [address] [place], [address], 04/28/2021 05:09:04 04/27/19 22 04/28/2021 BASIC METAB OLIC PANEL (8) chloride 106 mmol/ L 96-106 Not Available [facility] ([facility]) [address] [place], [address], 04/28/2021 05:09:04 04/27/19 22 04/28/2021 BASIC METAB OLIC PANEL (8) carbon dioxide, total 23 mmol/ L 20-29 Not Available [facility] ([facility]) [address] [place], [address], 04/28/2021 05:09:04 04/27/19 22 04/28/2021 BASIC METAB OLIC PANEL (8) calcium 8.7 mg/dL 8.6-10 .2 Not Available [facility] ([facility]) [address] [place], [address], 04/28/2021 05:09:04 04/27/19 22 04/28/2021 CBC WITH DIFFE RENTI AL/PL ATELE T NRBC nnp Not Available [facility] ([facility]) [address] [place], [address], 04/28/2021 05:09:04 04/27/19 22 04/28/2021 CBC WITH DIFFE RENTI AL/PL ATELE T hematology comments: nnp Not Available [facility] ([facility]) [address] [place], [address], 04/28/2021 05:09:04 04/27/19 22 04/28/2021 CBC WITH DIFFE RENTI AL/PL ATELE T WBC 3.5 x10e3 /uL 3.4-10 .8 Not Available [facility] ([facility]) [address] [facility], [place], [address], 04/28/2021 05:09:04 04/27/19 22 04/28/2021 CBC WITH DIFFE RENTI AL/PL ATELE T RBC 3.79 x10e6 /uL 4.14-5 .80 below low normal Not Available [facility] ([facility]) [address] [place], [address], 04/28/2021 05:09:04 04/27/19 22 04/28/2021 CBC WITH DIFFE RENTI AL/PL ATELE T hemoglobin 10.7 g/dL 13.0-1 7.7 below low normal Not Available [facility] ([facility]) [address] [facility], [place], [address], 04/28/2021 05:09:04 04/27/19 22 04/28/2021 CBC WITH DIFFE RENTI AL/PL ATELE T hematocrit 34.4 % 37.5-5 1.0 below low normal Not Available [facility] ([facility]) [address] [place], [address], 04/28/2021 05:09:04 04/27/19 22 04/28/2021 CBC WITH DIFFE RENTI AL/PL ATELE T MCV 91 fL 79-97 Not Available [facility] ([facility]) [address] [place], [address], 04/28/2021 05:09:04 04/27/19 22 04/28/2021 CBC WITH DIFFE RENTI AL/PL ATELE T MCH 28.2 pg 26.6-3 3.0 Not Available [facility] ([facility]) [address] [place], [address], 04/28/2021 05:09:04 04/27/19 22 04/28/2021 CBC WITH DIFFE RENTI AL/PL ATELE T MCHC 31.1 g/dL 31.5-3 5.7 below low normal Not Available [facility] ([facility]) [address] [facility], [place], [address], 04/28/2021 05:09:04 04/27/19 22 04/28/2021 CBC WITH DIFFE RENTI AL/PL ATELE T RDW 15.9 % 11.6-1 5.4 above high normal Not Available [facility] ([facility]) [address] [place], [address], 04/28/2021 05:09:04 04/27/19 22 04/28/2021 CBC WITH DIFFE RENTI AL/PL ATELE T platelets 250 x10e3 /uL 150-45 0 Not Available [facility] ([facility]) [address] [facility], [place], [address], 04/28/2021 05:09:04 04/27/19 22 04/28/2021 CBC WITH DIFFE RENTI AL/PL ATELE T neutrophils 64 % not estab. Not Available [facility] ([facility]) [address] [place], [address], 04/28/2021 05:09:04 04/27/19 22 04/28/2021 CBC WITH DIFFE RENTI AL/PL ATELE T lymphs 22 % not estab. Not Available [facility] ([facility]) [address] [place], [address], 04/28/2021 05:09:04 04/27/19 22 04/28/2021 CBC WITH DIFFE RENTI AL/PL ATELE T monocytes 8 % not estab. Not Available [facility] ([facility]) [address] [place], [address], 04/28/2021 05:09:04 04/27/19 22 04/28/2021 CBC WITH DIFFE RENTI AL/PL ATELE T eos 4 % not estab. Not Available [facility] ([facility]) [address] [facility], [place], [address], 04/28/2021 05:09:04 04/27/19 22 04/28/2021 CBC WITH DIFFE RENTI AL/PL ATELE T basos 1 % not estab. Not Available [facility] ([facility]) [address] [facility], [place], [address], 04/28/2021 05:09:04 04/27/19 22 04/28/2021 CBC WITH DIFFE RENTI AL/PL ATELE T immature cells nnp Not Available [facility] ([facility]) [address] [facility], [place], [address], 04/28/2021 05:09:04 04/27/19 22 04/28/2021 CBC WITH DIFFE RENTI AL/PL ATELE T neutrophils (absolute) 2.3 x10e3 /uL 1.4-7. 0 Not Available [facility] ([facility]) [address] [place], [address], 04/28/2021 05:09:04 04/27/19 22 04/28/2021 CBC WITH DIFFE RENTI AL/PL ATELE T lymphs (absolute) 0.8 x10e3 /uL 0.7-3. 1 Not Available [facility] ([facility]) [address] [place], [address], 04/28/2021 05:09:04 04/27/19 22 04/28/2021 CBC WITH DIFFE RENTI AL/PL ATELE T monocytes(ab solute) 0.3 x10e3 /uL 0.1-0. 9 Not Available [facility] ([facility]) [address] [place], [address], 04/28/2021 05:09:04 04/27/19 22 04/28/2021 CBC WITH DIFFE RENTI AL/PL ATELE T eos (absolute) 0.1 x10e3 /uL 0.0-0. 4 Not Available [facility] ([facility]) [address] [place], [address], 04/28/2021 05:09:04 04/27/19 22 04/28/2021 CBC WITH DIFFE RENTI AL/PL ATELE T baso (absolute) 0.0 x10e3 /uL 0.0-0. 2 Not Available [facility] ([facility]) [address] [place], [address], 04/28/2021 05:09:04 04/27/19 22 04/28/2021 CBC WITH DIFFE RENTI AL/PL ATELE T immature granulocytes 1 % not estab. Not Available [facility] ([facility]) [address] [place], [address], 04/28/2021 05:09:04 04/27/19 22 04/28/2021 CBC WITH DIFFE RENTI AL/PL ATELE T immature grans (abs) 0.0 x10e3 /uL 0.0-0. 1 Not Available [facility] ([facility]) [address] [place], [address], 04/28/2021 05:09:04 04/27/19 22 04/28/2021 TSH+F REE T4 TSH 4.880 uIU/m L 0.450- 4.500 above high normal Not Available [facility] ([facility]) [address] [place], [address], 04/28/2021 05:09:03 04/27/19 22 04/28/2021 TSH+F REE T4 T4,free(dire ct) 1.27 NG/dL 0.82-1 .77 Not Available [facility] ([facility]) [address] [place], [address], 04/28/2021 05:09:03 04/27/19 22 04/28/2021 FE+TI BC+FE R iron bind.cap.(TI BC) 255 ug/dL 250-45 0 Not Available [facility] ([facility]) [address] [facility], [place], [address], 04/28/2021 05:09:03 04/27/19 22 04/28/2021 FE+TI BC+FE R UIBC 214 ug/dL 111-34 3 Not Available [facility] ([facility]) [address] [place], [address], 04/28/2021 05:09:03 04/27/19 22 04/28/2021 FE+TI BC+FE R iron 41 ug/dL 38-169 Not Available [facility] ([facility]) [address] [place], [address], 04/28/2021 05:09:03 04/27/19 22 04/28/2021 FE+TI BC+FE R iron saturation 16 % 15-55 Not Available [facility] ([facility]) [address] [facility], [place], [address], 04/28/2021 05:09:03 04/27/19 22 04/28/2021 FE+TI BC+FE R ferritin 68 NG/mL 30-400 Not Available [facility] ([facility]) [address] [place], [address], 04/28/2021 05:09:03 05/04/19 23 04/15/2022 XR, chest No observ ation record ed. [id number], [place], [address], 06/08/2022 04:45:43 09/09/19 23 09/08/2022 colon oscop y scree cornelia (PROC ) No observ ation record ed. [email or web address] - [address] [facility], [place], [address], 11/22/2022 10:59:56 04/19/19 24 04/18/2023 XR, chest , 2 view No observ ation record ed. [email or web address] [facility] [address], [place], [address], 04/19/2023 15:53:37 04/27/19 24 04/19/2023 US, echoc ardio gram, trans thora cic, compl ete, w/ color flow No observ ation record ed. [address], [place], [address], 04/28/2023 11:22:18 05/10/19 24 04/18/2023 XR, chest , 2 view No observ ation record ed. [address], [place], [address], 05/10/2023 12:55:22 Result Notes None recorded. Problems Name Problem SNOMED Code Status Onset Date Resolution Date Notes Provider Name and Address Organization Details Recorded Time Edema of lower extremity 963060937 Active 2021 Not Available [facility] 3 04:36:56 Benign essential hypertension 8880363 Active Not Available [facility] 3 04:36:56 Hypercholeste rolemia 76377176 Active Not Available [facility] 3 04:36:56 Serum creatinine above reference range 555174578 Active Not Available [facility] 3 04:36:56 Abnormal urinalysis 153453648 Active Not Available [facility] 3 04:36:56 Microscopic hematuria 805563080 Active Not Available [facility] 3 04:36:56 Glaucoma 38511058 Active Not Available [facility] 3 04:36:56 Long-term drug therapy Active 2021 Not Available [facility] 3 04:36:56 Mixed hyperlipidemi a 597500998 Active 2021 Not Available [facility] 3 04:36:56 Shoulder joint pain 944910000 Active Not Available [facility] 3 04:36:56 Anemia 854230733 Active Not Available [facility] 3 04:36:56 Knee pain Active Not Available [facility] 3 04:36:56 Thyroid function tests abnormal 018990073 Active 2021 Not Available [facility] 3 04:36:57 Hypertensive disorder 76666087 Active Not Available [facility] 3 04:36:57 Prostate specific antigen above reference range 682784042 Active Not Available [facility] 3 04:36:57 Osteoarthriti s 536735849 Active Not Available [facility] 3 04:36:57 Hyperlipidemi a 78114153 Active Not Available [facility] 3 04:36:57 Derangement of knee 34523919 Active Not Available [facility] 3 04:36:57 Common cold 48080260 Active Not Available [facility] 3 04:36:57 Iron deficiency anemia 34609377 Active 2021 Not Available [facility] 3 04:36:57 Problem Notes None recorded. Procedures Surgical History Date Name Laterality Status Provider Name and Address Organization Details Recorded Time 11/23/19 22 operation on hip joint completed Not Available [facility] 06/08/2022 04:30:58 11/23/19 21 Orthopedic Surgery completed Not Available [facility] 06/08/2022 04:30:58 05/25/19 17 Colposcopy completed Not Available [facility] 06/08/2022 04:30:58 Vasectomy completed Not Available [facility] 06/08/2022 04:30:58 Tonsillectomy completed Not Available [facility] 06/08/2022 04:30:58 Cardiovascular Procedure completed Not Available [facility] 06/08/2022 04:30:58 extraction of wisdom tooth completed Not Available [facility] 06/08/2022 04:30:58 Colposcopy completed Not Available [facility] 06/08/2022 04:30:58 Imaging Results Imaging Date Name Status LastModified by [facility]iz [facility] Details LastModified Time 04/15/2022 XR, chest completed [id number] [place] [address], [address], 06/08/2022 04:45:43 09/08/2022 colonoscopy screening (PROC) completed [address] - [address] [facility], [facility], [place], [address], 11/22/2022 10:59:56 04/18/2023 XR, chest, 2 view completed [address] [place] [address], [address], 04/19/2023 15:53:37 04/19/2023 US, echocardiogram, transthoracic, complete, w/ color flow completed [address] [place] [address], [address], 04/28/2023 11:22:18 04/18/2023 XR, chest, [address] view completed [address] [place] [address], [address], 05/10/2023 12:55:22 Procedure Notes None recorded. Medical Equipment None Reported. Allergies No known drug allergies Medications Name Sig Start Date Stop Date Status Note LastModified by Organization Details LastModified Time multivitami n tablet TAKE 1 TABLET BY MOUTH DAILY 02/04 completed Not Available Not Available Not Available losartan 50 mg tablet TAKE 1 TABLET BY MOUTH DAILY 02/04 completed Not Available Not Available Not Available furosemide 40 mg tablet TAKE 1 TABLET BY MOUTH DAILY 02/04 completed Not Available Not Available Not Available latanoprost 0.005 % eye drops INSTILL 1 DROP IN BOTH EYES QHS active Not Available Not Available No t Available atorvastati n 10 mg tablet TAKE 1 TABLET EVERY NIGHT AT BEDTIME active Not Available Not Available No t Available amiodarone 200 mg tablet Take 1 tablet every day by oral route. 02/04 completed Not Available Not Available Not Available benzonatate 200 mg capsule Take 1 capsule 3 times a day by oral route as needed. active Not Available Not Available No t Available hydrocodone 5 mg-acetamin ophen 325 mg tablet TAKE 1 BY MOUTH EVERY 4-6 HOURS NEEDED FOR PAIN 05/31 completed Not Available Not Available Not Available bisoprolol 5 mg-hydrochl orothiazide 6.25 mg tablet TAKE 1 TABLET EVERY DAY 05/06 completed Not Available Not Available Not Available vancomycin 5 gram intravenous solution 05/31 completed Not Available Not Available Not Available potassium chloride ER 10 mEq tablet,exte nded release TAKE 1 TABLET BY MOUTH WITH FUROSEMID E DAYS 05/09 completed Not Available Not Available Not Available ciprofloxac in 500 mg tablet TAKE 1 TABLET BY MOUTH EVERY 12 HOURS 02/04 completed Not Available Not Available Not Available sulfamethox azole 800 mg-trimetho prim 160 mg tablet TAKE 1 TABLET BY MOUTH TWICE DAILY FOR 14 DAYS 02/04 completed Not Available Not Available Not Available hydrocodone 10 mg-acetamin ophen 325 mg tablet Take 1 tablet every 4 hours by oral route. 08/16 completed Not Available Not Available Not Available tramadol 50 mg tablet 05/09 completed Not Available Not Available Not Available acetaminoph en 500 mg tablet TAKE 2 TABLETS BY MOUTH EVERY 6 HOURS 02/04 completed Not Available Not Available Not Available ketorolac 10 mg tablet Take 1 tablet every 6 hours by oral route for 5 days. active Not Available Not Available No t Available linezolid 600 mg tablet 05/31 completed Not Available Not Available Not Available doxycycline monohydrate 100 mg capsule 11/21 completed Not Available Not Available Not Available simvastatin 20 mg tablet TAKE 1 TABLET EVERY DAY 02/04 completed Not Available Not Available Not Available folic acid 1 mg tablet TAKE 1 TABLET BY MOUTH DAILY 02/04 completed Not Available Not Available Not Available dorzolamide 22.3 mg-timolol 6.8 mg/mL eye drops INSTILL 1 DROP IN BOTH EYES TWICE DAILY 05/09 completed Not Available Not Available Not Available mupirocin 2 % topical ointment APPLY TO NOSTRILS TWICE DAILY - START 5 DAYS PRIOR TO SURGERY 05/09 completed Not Available Not Available Not Available furosemide 20 mg tablet TAKE 1 TABLET BY MOUTH DAILY FOR 3 DAYS PRN only 05/09 completed Not Available Not Available Not Available ergocalcife rol (vitamin D2) 1,250 mcg (50,000 unit) capsule 05/31 completed Not Available Not Available Not Available vancomycin 10 gram intravenous solution 05/31 completed Not Available Not Available Not Available Viagra 100 mg tablet take one tablet po as directed before activity. max of 1 tab per day 08/06 completed Not Available Not Available Not Available levofloxaci n 500 mg tablet Take 1 tablet every 24 hours by oral route. 08/16 completed Not Available Not Available Not Available timolol maleate 0.5 % eye drops once a day active Not Available Not Available No t Available naproxen 500 mg tablet TAKE 1 TABLET BY MOUTH TWICE DAILY WITH FOOD 05/31 completed Not Available Not Available Not Available amoxicillin 875 mg-potassiu m clavulanate 125 mg tablet TAKE 1 TABLET BY MOUTH TWICE DAILY 02/04 completed Not Available Not Available Not Available oxycodone 5 mg tablet TAKE 1 TABLET BY MOUTH EVERY 4 HOURS NEEDED FOR SEVERE PAIN 05/09 completed Not Available Not Available Not Available neomycin 3.5 mg/g-polymy moises B 10,000 unit/g-dexa meth 0.1 % eye oint 05/02 completed Not Available Not Available Not Available cyclobenzap rine 5 mg tablet TAKE 1 TABLET BY MOUTH THREE TIMES DAILY NEEDED FOR MUSCLE SPASMS 02/04 completed Not Available Not Available Not Available daptomycin 500 mg intravenous solution 05/31 completed Not Available Not Available Not Available pregabalin 75 mg capsule 05/31 completed Not Available Not Available Not Available ferrous gluconate 324 mg (38 mg iron) tablet TAKE 1 TABLET BY MOUTH EVERY DAY active Not Available Not Available No t Available GaviLyte-N 420 gram oral solution 05/01 completed Not Available Not Available Not Available Vitamin B-1 (mononitrat e) 100 mg tablet TAKE 1 TABLET BY MOUTH DAILY 02/04 completed Not Available Not Available Not Available Xarelto 10 mg tablet 11/22 completed Not Available Not Available Not Available Stimulant Laxative Plus 8.6 mg-50 mg tablet TAKE 1 TABLET BY MOUTH TWICE DAILY 02/04 completed Not Available Not Available Not Available Vitals Date Recorded Body mass index (BMI) Body height Oxygen saturation Oxygen saturation in Arterial blood by Pulse oximetry Heart rate Body temperature Body weight Systolic blood pressure Diastolic blood pressure Provider Name and Address Organization Details Last Updated DateTime 1 36.4 kg/m2 183.515 cm 97 % 97 % 54 /min 97.1 [degF] 204443. 94 g 130 mm[Hg] 82 mm[Hg] Not Available [facility] 3 04:35:59 Date Recorded Body mass index (BMI) Body height Oxygen saturation Oxygen saturation in Arterial blood by Pulse oximetry Heart rate Respiratory rate Body temperature Body weight Systolic blood pressure Diastolic blood pressure Systolic blood pressure Diastolic blood pressure Provider Name and Address Organization Details Last Updated DateTime 2 38 kg/m2 183.515 cm 96 % 96 % 74 /min 16 /min 97.3 [degF] 200876. 05 g 130 mm[Hg] 82 mm[Hg] 120 mm[Hg] 80 mm[Hg] Not Available [facility] 3 04:35:59 Date Recorded Body mass index (BMI) Body height Oxygen saturation Oxygen saturation in Arterial blood by Pulse oximetry Heart rate Respiratory rate Body temperature Body weight Systolic blood pressure Diastolic blood pressure Provider Name and Address Organization Details Last Updated DateTime 2 38.5 kg/m2 183.515 cm 96 % 96 % 64 /min 16 /min 97.7 [degF] 297890. 42 g 150 mm[Hg] 88 mm[Hg] Not Available [facility] 3 04:35:59 Date Recorded Body mass index (BMI) Body height Oxygen saturation Oxygen saturation in Arterial blood by Pulse oximetry Heart rate Body temperature Body weight Systolic blood pressure Diastolic blood pressure Systolic blood pressure Diastolic blood pressure Provider Name and Address Organization Details Last Updated DateTime 3 39.2 kg/m2 183.515 cm 97 % 97 % 71 /min 98.1 [degF] 768217. 38 g 126 mm[Hg] 68 mm[Hg] 110 mm[Hg] 70 mm[Hg] Not Available [facility] 3 04:35:59 Date Recorded Body height Body mass index (BMI) Body weight Body temperature Heart rate Oxygen saturation Oxygen saturation in Arterial blood by Pulse oximetry Systolic blood pressure Diastolic blood pressure Provider Name and Address Organization Details Last Updated DateTime 3 183.52 cm 39.1 kg/m2 780993. 79 g 98.4 [degF] 60 /min 97 % 97 % 132 mm[Hg] 88 mm[Hg] Heather Hansen RN [employer] 10:57:35 Date Recorded Systolic blood pressure Diastolic blood pressure Provider Name and Address Organization Details Last Updated DateTime 11/22/2022 132 mm[Hg] 80 mm[Hg] AMAYA Flynn [address] [facility], [facility] [address], [place], [address], [employer] 11/22/2022 11:17:46 Social History Question Answer Notes LastModified by Organizat ion Details LastModified Time Tobacco Smoking Status Never Smoker Not Available [facility] 06/08/2022 04:30:27 What Is Your Level Of Alcohol Consumption? Heavy [id number] Information not available 06/08/2022 What Is Your Level Of Caffeine Consumption? None [id number] Information not available 06/08/2022 How Much Tobacco Do You Chew? None [id number] Information not available 06/08/2022 In The 14 Days Before Symptom Onset, Have You Had Close Contact With A Laboratory-confir med COVID-19 While That Case Was Ill? No [id number] Information not available 06/08/2022 In The 14 Days Before Symptom Onset, Have You Had Close Contact With A Person Who Is Under Investigation For COVID-19 While That Person Was Ill? No [id number] Information not available 06/08/2022 Are You Currently Employed? No [email or web address] Information not available 11/21/2022 What Type Of Diet Are You Following? REGULAR [id number] Information not available 06/08/2022 Which Illicit Or Recreational Drugs Have You Used? None [id number] Information not available 06/08/2022 Do You Or Have You Ever Used E-cigarettes Or Vape? Never Used Electronic Cigarettes [id number] Information not available 06/08/2022 What Is Your Occupation? Retired [id number] Information not available 06/08/2022 Have There Been Any Changes To Your Family Or Social Situation? No [id number].[id number] 3289 Information not available 06/08/2022 Do You Use Insect Repellent Routinely? No [id number] Information not available 06/08/2022 What Is Your Relationship Status? [id number] Information not available 06/08/2022 Do You Use Your Seat Belt Or Car Seat Routinely? Yes [id number].[id number] Information not available 06/08/2022 Do You Have Smoke And Carbon Monoxide Detectors In Your Home? Yes [id number].[id number] 0599 Information not available 06/08/2022 Do You Or Have You Ever Used Smokeless Tobacco? Never Used Smokeless Tobacco [id number].[id number] Information not available 06/08/2022 How Much Tobacco Do You Smoke? No [id number].[id number] Information not available 06/08/2022 Do You Use Any Illicit Or Recreational Drugs? No [id number].[id number] Information not available 06/08/2022 Do You Use Sunscreen Routinely? No MIGRATION.827444 [id number] Information not available 06/08/2022 Have You Recently Traveled Abroad? No [id number].213063 5045 Information not available 06/08/2022 Do You Have Any Dietary Restrictions? No MIGRATION.466513 3917 Information not available 06/08/2022 Do You Or Have You Ever Used Any Other Forms Of Tobacco Or Nicotine? No MIGRATION.877273 1396 Information not available 06/08/2022 Sex: Unknown Functional Status Question Answer Note LastModified by Organizat ion Details LastModified Time Do you have transportation difficulties? No [id number] Information not available 06/08/2022 Do you have difficulty doing errands alone? No [id number] 26 Information not available 06/08/2022 Are you able to care for yourself? Yes [id number] 26 Information not available 06/08/2022 Do you have difficulty dressing or bathing? No [id number] 26 Information not available 06/08/2022 What is your exercise level? None [id number].[id number] 26 Information not available 06/08/2022 Mental Status None recorded. Family History Relationship Description Onset Age of this Age Resolved Age Notes LastModified by Organization Details LastModified Time Father Cerebrovascu lar accident 74 of AAA [id number] Not available 06/08/2022 04:31:05 Mother Cerebrovascu lar accident 84 Sever[place] l stroke s [id number] Not available 06/08/2022 04:31:05 Maternal Grandmother Kidney disease 84 in sleep [id number] Not available 06/08/2022 04:31:05 Paternal Grandfather Myocardial infarction 39 Heart attack fatal [id number] [id number] Not available 06/08/2022 04:31:05 Paternal Grandmother Malignant tumor of colon 84 [id number] Not available 06/08/2022 04:31:05 Brother Obesity [id number] Not available 06/08/2022 04:31:05 Notes:no family history of p rostate cancer Medical History Condition Response OBESITY Y HYPERTENSION Y HIGH CHOLESTEROL / HYPERLIPIDEMIA Y Immunizations Vaccine Type Date Status Note Provider Nam e and Address Organization Details Recorded Time zoster, unspecified formulation 1 completed Not Available [facility] 06/08/2022 04:45:01 Influenza, high-dose, quadrivalent, PF 0 completed Not Available [facility] [facility] 04:45:01 influenza, unspecified formulation 5 completed Not Available [facility] 06/08/2022 04:45:01 COVID-19, mRNA, LNP-S, PF, 100 mcg/0.5mL dose or 50 mcg/0.25mL dose 1 completed Not Available [facility] 06/08/2022 04:45:01 Influenza, split virus, quadrivalent, preservative 1 completed Not Available [facility] 06/08/2022 04:45:01 tetanus toxoid, not adsorbed 1 completed [facility] 04:45:01 COVID-19, mRNA, LNP-S, PF, 100 mcg/0.5mL dose or 50 mcg/0.25mL dose 1 completed Not Available [facility] 06/08/2022 04:45:02 COVID-19, mRNA, LNP-S, PF, 100 mcg/0.5mL dose or 50 mcg/0.25mL dose 1 completed Not Available [facility] 06/08/2022 04:45:02 influenza, unspecified formulation 6 completed Not Available [facility] 06/08/2022 04:45:02 Pneumococcal conjugate PCV 13 8 completed Not Available [facility] 06/08/2022 04:45:02 Past Encounters Encounter ID Performer Location Encounter Start Date Encounter Closed Date Diagnosis/Indication Diagnosis SNOMED-CT Code Diagnosis ICD10 Code Diagnosis Note [id number] [facility] [address] [place] [address] 08/06/2020 00:00:00 08/06/2020 13:47:42 [id number] [facility] [address] [place] [address] 02/04/2021 00:00:00 02/04/2021 22:10:33 [id number] [facility] [address] [place] [address] 05/06/2021 00:00:00 05/06/2021 13:58:19 [id number] [facility] [address] [place] [address] 11/04/2021 00:00:00 11/04/2021 11:21:41 [id number] [facility] [address] [place] [address] 05/31/2022 00:00:00 06/05/2022 14:15:30 [id number] AMAYA Flynn [facility] [address] [place] [address] 11/22/2022 10:51:55 11/22/2022 11:22:25 Benign essential hypertension 3642744 I10 stable on off medication and only taking diuretic now for fluid management . Edema of l ower extremity 498235480 R60.0 stable Long-term drug therapy 163440491 Z79.899 Osteoarthritis 928068793 M19.90 stable. Mixed hyperlipidemia 267 075526 E78.2 stable on statin therapy. fasting lipids due in april. Iron defic iency anemia 71931383 D50.9 following iron studies. rx for ferrous gluconate 324mg daily. colonoscop y UTD Prostate s pecific antigen above reference range 810317017 R97.20 PSA due in april. Health Concerns Section Related Observation LastModified by Organization Detai ls LastModified Time None Recorded Concern Status LastModified by Organization Details LastModified Time None Recorded Advance Directives Directive None Recorded Payers Encounter Date Sequence Insurance Name Policy Number Policy Mayorga Covered Member ID Mayorga Member ID Guarantor Name 11/22/2022 1 [place] Lang Banks Dulce [id number] Lang Cardona 11/22/2022 2 [employer] (MEDICARE SUPPLEMENT) Lang Darren Dulce [id number] Lang Cardona Notes Date Note Type Note Provider Name and Address Organization Details Recorded Time 02/05/20 21 text/htm l HyperlipidemiaReported bypatient.Control:usually well controlled; improving; at goal Compliance:compliant; compliant with diet; exercises Complications:no coronary artery disease; no peripheral artery disease; no cardiovascular diseaseHypertensionReported bypatient.Onset/Timing:better Self Care:not under emotional stress Associated Symptoms:no shortness of breath; no fatigue; no palpitations; no decline in exercise capacity; no snoring Not Available [employer] 02/04/2021 22:10:33 05/06/19 22 text/htm l Edema - Lower ExtremityReported bypatient.Quality:legs do not swell equally Severity:mild Duration:constant Onset/Timing:gradual onset Context:prior history of edema;diet high in salt Modifying Factors:nothing gives relief Associated Symptoms:no shortness of breath; no shortness of breath during exertion; no significant weight gain; no cough;swelling in lower legs onlyGeneric HPI TemplateReported bypatient.Quality:arthritisHype rlipidemiaReported bypatient.Duration:chronic Control:usually well controlled Current Therapy:currently taking: (atorvastatin 10mg) Compliance:compliant;noncomplia nt with diet;does not exercise Complications:no coronary artery disease; no peripheral artery disease; no cardiovascular disease Risk Factors:hypertension;obesityHyp ertensionReported bypatient.Duration:has noted for years Onset/Timing:better Self Care:not under emotional stress Associated Symptoms:no shortness of breath; no fatigue; no palpitations; no decline in exercise capacity; no snoring Not Available [employer] 05/06/2021 13:58:19 11/05/19 22 text/htm l HyperlipidemiaReported bypatient.Duration:chronic Control:usually well controlled Current Therapy:currently taking: (atorvastatin 10mg) Compliance:compliant;noncomplia nt with diet;does not exercise Complications:no coronary artery disease; no peripheral artery disease; no cardiovascular disease Risk Factors:hypertensionHypertensio nReported bypatient.Duration:has noted for years Onset/Timing:better Alleviating Factors:medication Self Care:not under emotional stress Associated Symptoms:no shortness of breath; no fatigue; no palpitations; no decline in exercise capacity; no snoring Not Available [employer] [facility] [email or web address] [facility] 11/04/2021 11:21:41 05/31/19 23 text/htm l HyperlipidemiaReported bypatient.Duration:chronic Control:usually well controlled Current Therapy:currently taking: (atorvastatin 10mg) Compliance:compliant;noncomplia nt with diet;does not exercise Complications:no coronary artery disease; no peripheral artery disease; no cardiovascular disease Risk Factors:hypertensionHypertensio nReported bypatient.Duration:has noted for years Onset/Timing:better Alleviating Factors:medication Self Care:not under emotional stress Associated Symptoms:no shortness of breath; no fatigue; no palpitations; no decline in exercise capacity; no snoring Not Available [employer] [facility] [email or web address] [facility] 06/05/2022 14:15:30 11/23/19 23 text/htm l HyperlipidemiaReported bypatient.Duration:chronic Control:usually well controlled; improving; at goal Compliance:compliant; compliant with diet; exercises;does not exercise Complications:no coronary artery disease; no peripheral artery disease; no cardiovascular diseaseHypertensionReported bypatient.Onset/Timing:better Alleviating Factors:medication Associated Symptoms:no shortness of breath; no fatigue; no palpitations; no decline in exercise capacity; no snoring 6 mo f/u AMAYA Flynn [address] [place] [address], [place] [address], [place], [address], [facility] [employer] [facility] [email or web address] [facility] 12/08/2022 22:26:03
--- OUTSIDE RECORDS SUMMARY | 2024-06-19 16:30 | XMS_ITS | Referral Summary ---
Author Organization [facility] Address [address] [place] [address] Care Team Providers Care Un[employer] Roboticist Name Role Phone Mayra Esqueda Primary Care Pr ovider Allergies No known active allergies Medications latanoprost (XALATAN) 0.005 % ophthalmic solutionIndicat ions:open angle glaucoma Administer 1 drop into both eyes nightly Active atorvastatin (LIPITOR) 10 mg tablet Take 1 tablet (10 mg total) by mouth nightly 90 tablet 3 1 Active timolol (TIMOPTIC) 0.5 % ophthalmic solutionIndicat ions:open angle glaucoma Administer 1 drop into both eyes 2 (two) times a day 2 Active metoprolol tartrate (LOPRESSOR) 25 mg immediate release tablet Take 1 tablet (25 mg total) by mouth 2 (two) times a day 180 tablet 3 4 Active apixaban (ELIQUIS) 5 mg tablet Take 1 tablet (5 mg total) by mouth 2 (two) times a day 180 tablet 3 4 Active losartan (COZAAR) 100 mg tablet Take 1 tablet (100 mg total) by mouth daily 4 Active furosemide (LASIX) 40 mg tablet Take 1 tablet (40 mg total) by mouth as needed (edema, weight gain) 4 Active Active Problems Problem Noted Date Diagnosed Date Dyspnea on exertion 12/29/2023 Chronic anticoagulation 06/14/2023 Morbid (severe) obesity due to excess calories 0 06/14/2023 Body mass index 40.0-44.9, adult ([facility]) 06/13 Foreign body of right hip with infection 023 Infection of prosthetic hip joint, initial encou nter 06/20/2022 Infection and inflammatory r eaction due to internal right hip prosthesis, initial encounter 05/03/2022 Overview (05/03/2022): Added automatically from request for surgery [id number] Prosthetic joint infection 04/20/2022 Assessment & Plan (04/20/2022 6:07 AM BAG PRINTER): - Continues on IV Vancomycin 1 gram daily for Staph hominis and Staph capitis PJI, - WBC have continued to decrease, most recent levels from 04/12/22 were 1.8 (ANC: 1.0). With the continued decrease in WBC will plan to stop IV Vancomycin and switch to IV Daptomycin to complete 6 weeks of treatment. - Will start Daptomycin 8 mg/kg (790 mg) daily - Has not received Daptomycin, will need to have first dose witnessed. Home health was notified and aware - Labs today: CK level (baseline). Prior to signing of this note CK resulted, level was 46. He is on a statin. Will need to monitor levels. - Will plan to continue Daptomycin to complete 6 week course with a firm stop on 04/30/22. - Pt received Vancomycin dose today, he was instructed to hold dose for tomorrow if he is unable to receive Daptomycin tomorrow. Prior to signing of this note he was started on Daptomycin 04/15/22. - PICC line can be removed following last dose. - Please continue with weekly labs CBC/CMP/CK will also need ESR/CRP final week of therapy. - Will notify Dr. Sanchez of change in therapy as well as stop date of antibiotics. - Discussed with patient the rational for treatment, culture results, risk of recurrent infection, signs/symptoms of recurrent infection, and to contact ID clinic with any questions or concerns Hardware complicating wound infection 03/19/2022 Assessment & Plan (03/22/2022 10:51 AM BAG PRINTER): Lang Cardona is a72 y.o. male with a history of hypertension, hyperlipidemia, and fall in 11/2020 right associated both column-type acetabular fracture s/p open reduction internal fixation 11/23/2020 who presented with R femur posttraumatic arthritis. As part of stage procedure for R SAMY, he had removal of 1 plate, with retention of intrapelvic plate and iliac screw on 12/06/2021. Anterior column acetabular bone culture grew rare S hominis (susceptible to clinda, dapto, doxy, erythromycin, linezolid, Bactrim, vancomycin) and anterior wall acetabular bone culture grew rare S capitis (fish susceptible). + elevated ESR and CRP. He developed a superficial inicisional cellulitis post-op and was treated with 2 week of linezoid. He was seen by Dr. Sanderson for ID and now presented for 2 stage procedure, given cellulitis and positive OR cultures. He underwent I and D with placement Prostalac articulating spacer on 03/18/2022. There is a retained pelvic rim plate and iliac screw however per surgical team these were not exposed or in the surgical field. OR cultures are growing Staphylococcus capitis. Given recent postoperative course and positive OR cultures, will treat Staphylococcus hominis and Staphylococcus capitis with long-term antibiotics for chipewwa joint septic arthritis. Of note patient is vitamin-D deficient with a vitamin-D level of 8. Patient also on a statin at home. ESR 53. CRP 137.6 Recommendations: - change vancomycin dose to 1g IV q12 hrs (done), check vanc trough before the 4th dose with goal of 15-20 - discontinue cefepime IV (done) - check CBC w/ diff and CMP twice weekly - ID will formally sign-off but will continue to follow peripherally while in house. Please see sign-off note from 03/22 for final recommendations. Discussed plan with Geeta Decker NP Vancomycin can cause renal impairment, neutropenia, eosinophilia, DRESS, ototoxicity, and thrombocytopenia. Due to the side effects, CBC and BMP should be monitored weekly while on vancomycin. Post-traumatic arthritis of right lower leg 12/2021 Arthritis of hip 12/02/2021 Overview (12/02/2021): Added automatically from request for surgery [id number] Post-traumatic osteoarthritis of one hip 08/05/2 022 Overview (11/12/2021): Added automatically from request for surgery [id number] Abnormal finding on thyroid function test 2021 Edema of lower extremity 05/06/2021 Paroxysmal atrial flutter 01/27/2021 Abnormal urinalysis 12/31/2020 Anemia 12/31/2020 Benign essential hypertension 12/31/2020 Common cold 12/31/2020 Derangement of knee 12/31/2020 Microscopic hematuria 12/31/2020 Osteoarthritis 12/31/2020 Paraparesis 12/31/2020 Shoulder joint pain 12/31/2020 Traumatic arthropathy of multiple sites 01/01/20 Raised prostate specific antigen 12/31/2020 Serum creatinine raised 12/31/2020 At risk for venous thromboembolism (VTE) 021 Overview (12/31/2020): Problem added by Discern Expert Rule: EBN_VTERISKPROB_3 Closed fracture of right inferior pubic ramus Right rib fracture 11/24/2020 Traumatic retroperitoneal hematoma 11/24/2020 Acute pain due to trauma 11/24/2020 Acute blood loss anemia 11/24/2020 Hypertension 11/24/2020 Hyperlipidemia 11/24/2020 Glaucoma 11/24/2020 ETOH abuse 11/24/2020 Closed fracture of acetabulum 11/22/2020 Overview (11/22/2020): Added automatically from request for surgery [id number] Immunizations Immunization Administration Dates Next Due Influenza, Quad, Adjuvantated, Intramuscular Influenza, Quadrivalent, Split, Intramuscular Influenza, Unspecified 01/18/2016,04/10/2014 Moderna SARS-CoV-2 Monovalent Vaccination (12+ Y RS) 02/19/2021 Pneumococcal Conjugate PCV 13 01/30/2018 Tdap 11/22/2020 Tetanus Toxoid, Not Adsorbed 12/02/2020 ZOSTER Recombinant 02/19/2021,09/10/2020 Zoster, unspecified 09/10/2020 Social History Tobacco Use Types Packs/Day Years Used Date Smoking Tobacco: Never Passive Smoke Exposure: Current Smokeless Tobacco: Never Tobacco Cessation:Counseling Given: Not Answered Alcohol Use Standard Drinks/Week Comments Yes 0 (1 standard drink = 0.6 oz pur e alcohol) OASIS D0700: Social Isolation Answer Da te Recorded Frequency of experiencing loneliness or isolatio n Never 07/04/2022 OASIS A1250: Transportation Answer Date Recorded Lack of Transportation (Medical) No 07/04/2022 Lack of Transportation (Non-Medical) No 07/04/2022 Patient Unable or Declines to Respond No 07/04/2022 OASIS B1300: Health Literacy Answer Suresh e Recorded Frequency of needing help to read materials from doctor or pharmacy Never 07/04/2022 Social Connection and Isolat ion Panel [NHANES] Answer Date Recorded In a typical week, how many times do you talk on the phone with family, friends, or neighbors? More than three times a week 06/27/2022 How often do you get togethe r with friends or relatives? Three times a week 06/27/2022 How often do you attend chur ch or jain services? Never 06/27/2022 Do you belong to any clubs o r organizations such as scientologist groups, unions, fraternal or athletic groups, or school groups? Yes 06/27/2022 How often do you attend meet ings of the clubs or organizations you belong to? 1 to 4 times per year 06/27/2022 Are you , , di vorced, , never , or living with a partner? 06/27/2022 AUDIT-C Answer Date Recorded Q1: How often do you have a drink containing alcohol? 4 or more times a week 06/20/2022 Q2: How many drinks containi ng alcohol do you have on a typical day when you are drinking? 3 or 4 Q3: How often do you have si x or more drinks on one occasion? Never 06/20/2022 Overall Financial Resource Strain (CARDIA) Answe r Date Recorded How hard is it for you to pa y for the very basics like food, housing, medical care, and heating? Not very hard 06/27/2022 Hunger Vital Sign Answer Date Recorded Within the past 12 months, y ou worried that your food would run out before you got the money to buy more. Never true 06/28/19 23 Within the past 12 months, t he food you bought just didn't last and you didn't have money to get more. Never true 06/27/2022 PRAPARE - Transportation Answer Date Re corded In the past 12 months, has l ack of transportation kept you from medical appointments or from getting medications? No 06/09 In the past 12 months, has l ack of transportation kept you from meetings, work, or from getting things needed for daily living? No 06/27/2022 Housing Stability Vital Sign Answer Suresh e Recorded In the last 12 months, was t here a time when you were not able to pay the mortgage or rent on time? No 06/27/2022 In the last 12 months, how many places have you lived? 1 06/27/2022 In the last 12 months, was t here a time when you did not have a steady place to sleep or slept in a long-term (including now)? No 06/27/2022 Personal Safety Answer Date Recorded Getting School Help Needed Denies 04/20 Sex and Gender Information Value Date Recorded Sex Assigned at Not on file Legal Sex Male 1:33 PM CDT Gender Identity Male 03/06/2021 9:45 AM BAG PRINTER Sexual Orientation Straight 03/06/2021 9: 45 AM BAG PRINTER Last Filed Vital Signs Vital Sign Reading Time Taken Comments Blood Pressure 116/74 2024 9:03 AM BAG PRINTER Pulse 51 2024 9:03 AM BAG PRINTER Temperature 36.1 C (97 F) 07/04/2022 10:00 AM CDT Respiratory Rate 16 07/04/2022 10:00 AM CDT Oxygen Saturation 96% 2024 9:03 AM BAG PRINTER Inhaled Oxygen Concentration - - Weight 130.2 kg (287 lb) 2024 9:03 AM BAG PRINTER Height 182.9 cm (6') 2024 9:03 AM BAG PRINTER Body Mass Index 38.92 2024 9:03 AM BAG PRINTER Plan of Treatment Not on file Medical Devices Implanted Type Area Drip Box Tender Device Identifier Shelf Expiration Date Model / Serial / Lot [employer] [facility] 2mm Set Hip Cable/Sleeve Orthopedic Vitallium 6704-0-510 - [id number] - [id number] Implanted:Qty: 1 on 06/20/2022 by Mundo Sanchez MD at [facility] Cable Right: Hip [employer] [id number] 08/08/2026 6704-0-510 / [id number] / [id number] [employer] [place] 2mm Set Hip Cable/Sleeve Orthopedic Vitallium 6704-0-510 - [id number] Implanted:Qty: 1 on 06/20/2022 by Mundo Sanchez MD at [facility] Cable Right: Hip [employer] [id number] 04/24/2026 6704-0-510 / / [id number] [employer] [place] 2mm Set Hip Cable/Sleeve Orthopedic Vitallium 6704-0-510 - [id number] Implanted:Qty: 1 on 06/20/2022 by Mundo Sanchez MD at [facility] Cable Right: Hip [employer] [id number] 12/27/2026 6704-0-510 / / [id number] [employer] [place] 2mm Set Hip Cable/Sleeve Orthopedic Vitallium 6704-0-510 - [id number] Implanted:Qty: 1 on 06/20/2022 by Mundo Sanchez MD at [facility] Cable Right: Hip [employer] [id number] 06/12/2023 6704-0-510 / / [id number] Synthes 02.100.208 104x10.1x3.85mm 8 Hole Low Profile Reconstruction Pelvic Wide - [id number] Implanted:Qty: 1 on 11/23/2020 by Magnus Chavez MD at [facility] Plate Right: Pelvis Synthes I 02.100.208 / / Synthes 02.100.210 Plate Wide Angle Loprfl 130mm Ss 3.5mm Screw 10 Hole Recon - [id number] Implanted:Qty: 1 on 11/23/2020 by Magnus Chavez MD at [facility] Plate Right: Pelvis Synthes I 02.100.210 / / Synthes 204.890 3.5mm 6mm 90mm 2.5mm Self Tap Small Hexagonal Socket Low Profile - [id number] Implanted:Qty: 2 on 11/23/2020 by Magnus Chavez MD at [facility] Screw Right: Pelvis Synthes I 204.890 / / Synthes 204.834 3.5mm 6mm 34mm 2.5mm Self Tap Small Hexagonal Socket Low Profile - [id number] Implanted:Qty: 1 on 11/23/2020 by Magnus Chavez MD at [facility] Screw Right: Pelvis Synthes I 204.834 / / Synthes 204.840 3.5mm 6mm 40mm 2.5mm Self Tap Small Hexagonal Socket Low Profile - [id number] Implanted:Qty: 1 on 11/23/2020 by Magnus Chavez MD at [facility] Screw Right: Pelvis Synthes I 204.840 / / Synthes 204.838 3.5mm 6mm 38mm 2.5mm Self Tap Small Hexagonal Socket Low Profile - [id number] Implanted:Qty: 1 on 11/23/2020 by Magnus Chavez MD at [facility] Screw Right: Pelvis Synthes I 204.838 / / Synthes 204.880 3.5mm 6mm 80mm 2.5mm Self Tap Small Hexagonal Socket Low Profile - [id number] Implanted:Qty: 1 on 11/23/2020 by Magnus Chavez MD at [facility] Screw Right: Pelvis Synthes I 204.880 / / Synthes 204.900 3.5mm 6mm 100mm Self Tap Small Hexagonal Socket Cortical Full - [id number] Implanted:Qty: 1 on 11/23/2020 by Magnus Chavez MD at [facility] Screw Right: Pelvis Synthes I 204.900 / / Synthes 204.705 3.5mm 6mm 105mm 2.5mm Self Tap Low Profile Small Hexagonal Socket - [id number] Implanted:Qty: 1 on 11/23/2020 by Magnus Chavez MD at [facility] Right: Pelvis Synthes I 204.705 / / Synthes 204.865 3.5mm 6mm 65mm 2.5mm Self Tap Small Hexagonal Socket Low Profile - [id number] Implanted:Qty: 1 on 11/23/2020 by Magnus Chavez MD at [facility] Right: Pelvis Synthes I 204.865 / / Synthes 204.860 3.5mm 6mm 60mm 2.5mm Self Tap Small Hexagonal Socket Low Profile - [id number] Implanted:Qty: 1 on 11/23/2020 by Magnus Chavez MD at [facility] Right: Pelvis Synthes I 204.860 / / Synthes 204.875 3.5mm 6mm 75mm 2.5mm Self Tap Small Hexagonal Socket Low Profile - [id number] Implanted:Qty: 1 on 11/23/2020 by Magnus Chavez MD at [facility] Right: Pelvis Synthes I 204.875 / / Synthes 204.830 3.5mm 6mm 30mm 2.5mm Self Tap Small Hexagonal Socket Low Profile - [id number] Implanted:Qty: 2 on 11/23/2020 by Magnus Chavez MD at [facility] Synthes I 204.830 / / Synthes 204.846 3.5mm 6mm 46mm 2.5mm Self Tap Small Hexagonal Socket Low Profile - [id number] Implanted:Qty: 1 on 11/23/2020 by Magnus Chavez MD at [facility] Synthes I 204.846 / / [employer] Simplex P Full Dose Radiopaque Preblend Cement Bone Tobramycin 6197-9-001 - [id number] Implanted:Qty: 3 on 03/18/2022 by Mundo Sanchez MD at [facility] Right: Hip [employer] [id number] 07/09/2023 6197-9-001 / / [id number] [employer] Simplex P Full Dose Radiopaque Preblend Cement Bone Tobramycin 6197-9-001 - [id number] Implanted:Qty: 1 on 03/18/2022 by Mundo Sanchez MD at [facility] Right: Hip [employer] 05/10/2023 6197-9-001 / / [id number] [employer] Prostalac 105mm Cemented Extension Hip 1 High Offset Stem Femoral Latex Free 028113709 - [id number] Implanted:Qty: 1 on 03/18/2022 by Mundo Sanchez MD at [facility] Right: Hip [employer] [id number] 09/08/2031 [id number] / / [id number] [employer] [place] 60mm 40mm Hip +4mm Neutral Liner Acetabular Altrx Ld Latex Free [id number] - [id number] Implanted:Qty: 1 on 03/18/2022 by Mundo Sanchez MD at [facility] Right: Hip [employer] [id number] 05/10/2026 741290167 / / [id number] [employer] Articul/Jonah 40mm M Specification Hip +8.5mm 03/23 Offset Taper Latex Free 115374247 - [id number] Implanted:Qty: 1 on 03/18/2022 by Mundo Sanchez MD at [facility] Right: Hip [employer] Inc 03/09/2026 [id number] / / [id number] [employer] G7 64mm Multihole Hip H Hemisphere Offset Shell Acetabular 668755553 - [id number] Implanted:Qty: 1 on 06/20/2022 by Mundo Sanchez MD at [facility] Right: Hip [employer] [id number] 10/27/2031 527470451 / / [id number] [employer] Trilogy 6.5mm 30mm Self Tap Acetabular Cortical Screw Bone 13223296339 - [id number] Implanted:Qty: 1 on 06/20/2022 by Mundo Sanchez MD at [facility] Right: Hip [employer] [id number] 10/23/2031 39662161869 / / [id number] [employer] Trilogy 6.5mm 30mm Self Tap Acetabular Cortical Screw Bone 73265294998 - [id number] Implanted:Qty: 1 on 06/20/2022 by Mundo aSnchez MD at [facility] Right: Hip [employer] [id number] 11/17/2031 24466468886 / / [id number] [employer] G7 40mm Lumen Hip H Liner Acetabular Longevity Sterile Latex Free 25405334 - [id number] Implanted:Qty: 1 on 06/20/2022 by Mundo Sanchez MD at [facility] Right: Hip [employer] [id number] 12/09/2023 60290502 / / [id number] [employer] Trilogy 6.5mm 30mm Self Tap Acetabular Cortical Screw Bone 81548447306 - [id number] Implanted:Qty: 1 on 06/20/2022 by Mundo Sanchez MD at [facility] Right: Hip [employer] [id number] 01/14/2032 [id number] / / [id number] [employer] Trilogy 6.5mm 15mm Self Tap Screw Bone 80799134498 - [id number] Implanted:Qty: 1 on 06/20/2022 by Mundo Sanchez MD at [facility] Right: Hip [employer] [id number] 02/29/2032 05741228036 / / [id number] [employer] Zhen Sts 20mm 190mm Press Fit Spline Distal Taper Stem Femoral 875504 - [id number] Implanted:Qty: 1 on 06/20/2022 by Mundo Sanchez MD at [facility] Right: Hip [employer] [id number] 10/22/2028722285 / / [id number] [employer] G7 Type 1 Hip -3mm Offset Taper Sleeve Centering Titanium Biolox 650-1065 - [id number] Implanted:Qty: 1 on 06/20/2022 by Mundo Sanchez MD at [facility] Right: Hip [employer] 02/22/2032 650-1065 / / [id number] [employer] G7 40mm Hip Head Femoral Biolox Delta Biolox Option 650-1058 - [id number] Implanted:Qty: 1 on 06/20/2022 by Mundo Sanchez MD at [facility] Right: Hip [employer] 02/22/2032 650-1058 / / [id number] [employer] Zhen 60mm Hip Femoral B High Offset Body Cone Titanium Sterile 11-107163 - [id number] Implanted:Qty: 1 on 06/20/2022 by Mundo Sanchez MD at [facility] Right: Hip [employer] 04/21/2032 11-491985 / / [id number] Explanted Type Area Drip Box Tender Device Identifier Shelf Expiration Date Model / Serial / Lot Synthes 204.846 3.5mm 6mm 46mm 2.5mm Self Tap Small Hexagonal Socket Low Profile - [id number] Explanted:Qty: 1 on 11/23/2020 at [facility] Synthes I 204.846 / / Synthes 204.890 3.5mm 6mm 90mm 2.5mm Self Tap Small Hexagonal Socket Low Profile - [id number] Explanted:Qty: 1 on 11/23/2020 at [facility] Right: Pelvis Synthes I 204.890 / / Procedures Procedure Name Priority Date/Time Associated Diagnosis Comments PSA SCREEN Routine 11/07/2022 9:03 AM CDT Elevated PSA from Last 3 Months or Most Recently Relevant to Health Maintenance Results * (ABNORMAL) PSA screen (11/07/2022 9:03 AM CDT) [facility] PSA 9.4(H) 0.0 - 4.0 ng/mL [facility] - Comment: [place] ECLIA methodology. According to the [employer] [employer], Serum PSA should decrease and remain at undetectable levels after radical prostatectomy. The AUA defines biochemical recurrence as an initial PSA value 0.2 ng/mL or greater followed by a subsequent confirmatory PSA value 0.2 ng/mL or greater. Values obtained with different assay methods or kits cannot be used interchangeably. Results cannot be interpreted as absolute evidence of the presence or absence of malignant disease. Blood 11/07/2022 9:03 AM CDT 11/07/2022 Narrative [facility] - 11/08/2022 4:08 AM CDT Performed at: [address] [id number] Drywall Sander: Onofre Corral PhD, Phone: [phone] Jake Stoddard IV, MD LAB BLOOD ORDERABLES Sarah l Result [facility] - 01 from Last 3 Months or Most Recently Relevant to Health Maintenance Insurance MEDICARE [facility] MEDICARE [place] [place] MEDICARE [place] [employer] [place] MEDICARE [facility] Advance Directives For more information, please contact: [phone] * Full Code (Latest Code Status on File) Date Activated Date Inactivated Comments 06/20/2022 4:01 PM 06/24/2022 4:03 PM * Full Code Date Activated Date Inactivated Comments 03/18/2022 2:51 PM 03/23/2022 8:25 PM * Full Code Date Activated Date Inactivated Comments 11/23/2020 4:34 AM 12/02/2020 10:59 PM Care Teams [employer] Roboticist Relationship Specialty Start Date End Date Mayra Esqueda PA PCP - General Physician Hse Manager 06/14/23
--- OUTSIDE RECORDS SUMMARY | 2024-06-19 16:30 | XMS_ITS | Clinical Summary ---
Author Organization [facility] Address [address] [place] [address] Care Team Providers Care Line Appliance Assembler Name Role Phone Mayra Esqueda Primary Care [...] 0 06/14/2023 Body mass index 40.0-44.9, adult (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 Of note patient is [...] (12/02/2021): Added automatically from request for surgery [id number] Post-traumatic osteoarthritis of one hip 08/05/2 022 Overview (11/12/2021): Added automatically from request for surgery [id number] Abnormal finding on thyroid function test 2021 [...] (11/22/2020): Added automatically from request for surgery [id number] Immunizations Immunization Administration Dates Next Due Influenza, Quad, Adjuvantated, Intramuscular Influenza, Quadrivalent, Split, Intramuscular Influenza, Unspecified 01/18/2016,04/10/2014 Moderna SARS-CoV-2 Monovalent Vaccination (12+ Y RS) 02/19/2021 Pneumococcal Conjugate PCV 13 01/30/2018 Tdap 11/22/2020 Tetanus Toxoid, Not Adsorbed 12/02/2020 ZOSTER Recombinant 02/19/2021,09/10/2020 Zoster, unspecified 09/10/2020 Surgical History Surgery Date Site/Laterality Comments PELVIC FRACTURE SURGERY 11/08/2020 - 12/08/2020 Right [place]kes FLUORO GUIDED ASPIRATION OR INJECTION LARGE JOINT RIGHT 11/01/2021 Right TOE SURGERY 04/10/2020 - 04/09/2021 VASECTOMY 04/10/1977 - 04/09/1978 HIP SURGERY JOINT REPLACEMENT Medical History Medical History Date Comments Glaucoma Hypertension Obesity Atrial fibrillation (HCC) SVT (supraventricular tachycardia) Family History Medical History Relation Name Comments Anesthesia problems Neg Hx Social History Tobacco Use Types Packs/Day Years [...] often do you attend chur ch or pentecostalism services? Never 06/27/2022 Do you belong to any clubs o r organizations such as mandaen groups, unions, fraternal or athletic groups, or [...] place to sleep or slept in a fpc (including now)? No 06/27/2022 Personal Safety Answer Date Recorded Getting School Help Needed Denies 04/20 Sex and Gender Information Value Date Recorded Sex Assigned at Not on file Legal Sex Male 1:33 PM CDT Gender Identity Male 03/06/2021 9:45 AM [employer] Sexual Orientation Straight 03/06/2021 9: 45 AM [employer] S[employer]ACH Obstetrics History Last Filed Vital Signs Vital Sign Reading Time Taken Comments Blood Pressure 116/74 2024 9:03 AM [employer]ACH Pulse 51 2024 9:03 AM [employer] Temperature 36.1 C (97 F) 07/04/2022 10:00 AM CDT Respiratory Rate 16 07/04/2022 10:00 AM CDT Oxygen Saturation 96% 2024 9:03 AM [employer] Inhaled Oxygen Concentration - - Weight 130.2 kg (287 lb) 2024 9:03 AM [employer] Height 182.9 cm (6') 2024 9:03 AM [employer] Body Mass Index 38.92 2024 9:03 AM [employer]ACH Plan of Treatment Health Maintenance Due Date Last Done Comments Colon Cancer Screening-Colonoscopy 1950 Depression Screening 1950 Hepatitis C Screening 1950 Hepatitis B Screening 1969 Well Visit 65+ 2016 Pneumococcal vaccine 65+ (2 of 2 - PPSV23) 03/27/2018 01/30/2018 Fall Risk Assessment 06/25/2023 06/24/2022 Covid-19 Vaccine (5 - 2023-2 5 season) 2023 12/31/2021, 02/19/2021, 06/08/2020, Additional history exists Influenza Vaccine (#1) 2023 , 01/21/2021, 01/18/2016, Additional history exists DTaP/Tdap/Td Vaccine (2 - Td or Tdap) 11/22/2030 11/22/2020 Zoster Vaccine Completed 02/19/2021, 06/2020, 09/10/2020 Prostate Cancer Screening-PSA Discontinued 11/07/2022, 01/05/2022 Medical Devices Implanted Type Area Dry Paste Supervisor Device Identifier Shelf Expiration Date Model / Serial / Lot [employer] D[place] 2mm Set Hip Cable/Sleeve Orthopedic Vitallium 6704-0-510 - [id number] - [id number] Implanted:Qty: 1 on 06/20/2022 by Mundo Sanchez MD at [facility] Cable Right: Hip [employer] [id number] 08/08/2026 6704-0-510 / [id number] / [id number] [employer] [place] 2mm Set Hip Cable/Sleeve Orthopedic Vitallium 6704-0-510 - [id number] Implanted:Qty: 1 on 06/20/2022 by Mundo Sanchez MD at [facility] Cable Right: Hip [employer] [id number] 04/24/2026 6704-0-510 / / [id number] [employer] [place] 2mm Set Hip Cable/Sleeve Orthopedic Vitallium 6704-0-510 - [id number] Implanted:Qty: 1 on 06/20/2022 by Mundo Sanchez MD at [facility] Cable Right: Hip [employer] [id number] 12/27/2026 6704-0-510 / / [id number] [employer] [place] 2mm Set Hip Cable/Sleeve Orthopedic Vitallium 6704-0-510 - [id number] Implanted:Qty: 1 on 06/20/2022 by Mundo Sanchez MD at [facility] Cable Right: Hip [employer] [id number] 06/12/2023 6704-0-510 / / [id number] Synthes 02.100.208 104x10.1x3.85mm 8 Hole Low Profile Reconstruction Pelvic Wide - [id number] Implanted:Qty: 1 on 11/23/2020 by Magnus Chavez MD at [facility] Plate Right: Pelvis Synthes I 02.100.208 / / Synthes 02.100.210 Plate Wide Angle Loprfl 130mm Ss 3.5mm Screw 10 Hole Recon - [id number] Implanted:Qty: 1 on 11/23/2020 by Magnus Chavez MD at [facility] Plate Right: Pelvis Synthes I 02.100.210 / / Synthes 204.890 3.5mm 6mm 90mm 2.5mm Self Tap Small Hexagonal Socket Low Profile - [id number] Implanted:Qty: 2 on 11/23/2020 by Magnus Chavez MD at [facility] Screw Right: Pelvis Synthes I 204.890 / / Synthes 204.834 3.5mm 6mm 34mm 2.5mm Self Tap Small Hexagonal Socket Low Profile - [id number] Implanted:Qty: 1 on 11/23/2020 by Magnus Chavez MD at [facility] Screw Right: Pelvis Synthes I 204.834 / / Synthes 204.840 3.5mm 6mm 40mm 2.5mm Self Tap Small Hexagonal Socket Low Profile - [id number] Implanted:Qty: 1 on 11/23/2020 by Magnus Chavez MD at [facility] Screw Right: Pelvis Synthes I 204.840 / / Synthes 204.838 3.5mm 6mm 38mm 2.5mm Self Tap Small Hexagonal Socket Low Profile - [id number] Implanted:Qty: 1 on 11/23/2020 by Magnus Chavez MD at [facility] Screw Right: Pelvis Synthes I 204.838 / / Synthes 204.880 3.5mm 6mm 80mm 2.5mm Self Tap Small Hexagonal Socket Low Profile - [id number] Implanted:Qty: 1 on 11/23/2020 by Magnus Chavez MD at [facility] Screw Right: Pelvis Synthes I 204.880 / / Synthes 204.900 3.5mm 6mm 100mm Self Tap Small Hexagonal Socket Cortical Full - [id number] Implanted:Qty: 1 on 11/23/2020 by Magnus Chavez MD at [facility] Screw Right: Pelvis Synthes I 204.900 / / Synthes 204.705 3.5mm 6mm 105mm 2.5mm Self Tap Low Profile Small Hexagonal Socket - [id number] Implanted:Qty: 1 on 11/23/2020 by Magnus Chavez MD at [facility] Right: Pelvis Synthes I 204.705 / / Synthes 204.865 3.5mm 6mm 65mm 2.5mm Self Tap Small Hexagonal Socket Low Profile - [id number] Implanted:Qty: 1 on 11/23/2020 by Magnus Chavez MD at [facility] Right: Pelvis Synthes I 204.865 / / Synthes 204.860 3.5mm 6mm 60mm 2.5mm Self Tap Small Hexagonal Socket Low Profile - [id number] Implanted:Qty: 1 on 11/23/2020 by Magnus Chavez MD at [facility] Right: Pelvis Synthes I 204.860 / / Synthes 204.875 3.5mm 6mm 75mm 2.5mm Self Tap Small Hexagonal Socket Low Profile - [id number] Implanted:Qty: 1 on 11/23/2020 by Magnus Chavez MD at [facility] Right: Pelvis Synthes I 204.875 / / Synthes 204.830 3.5mm 6mm 30mm 2.5mm Self Tap Small Hexagonal Socket Low Profile - [id number] Implanted:Qty: 2 on 11/23/2020 by Magnus Chavez MD at [facility] Synthes I 204.830 / / Synthes 204.846 3.5mm 6mm 46mm 2.5mm Self Tap Small Hexagonal Socket Low Profile - [id number] Implanted:Qty: 1 on 11/23/2020 by Magnus Chavez MD at [facility] Synthes I 204.846 / / [employer] Simplex P Full Dose Radiopaque Preblend Cement Bone Tobramycin 6197-9-001 - [id number] Implanted:Qty: 3 on 03/18/2022 by Mundo Sanchez MD at [facility] Right: Hip [employer] [id number] 07/09/2023 6197-9-001 / / [id number] [employer] Simplex P Full Dose Radiopaque Preblend Cement Bone Tobramycin 6197-9-001 - [id number] Implanted:Qty: 1 on 03/18/2022 by Mundo Sanchez MD at [facility] Right: Hip [employer] 05/10/2023 6197-9-001 / / [id number] [employer] Prostalac 105mm Cemented Extension Hip 1 High Offset Stem Femoral Latex Free 234014236 - [id number] Implanted:Qty: 1 on 03/18/2022 by Mundo Sanchez MD at [facility] Right: Hip [employer] [id number] 09/08/2031 [id number] / / [id number] [employer] [place] 60mm 40mm Hip +4mm Neutral Liner Acetabular Altrx Ld Latex Free 222861320 - [id number] Implanted:Qty: 1 on 03/18/2022 by Mundo Sanchez MD at [facility] Right: Hip [employer] [id number] 05/10/2026 394145349 / / [id number] [employer] Articul/Jonah 40mm M Specification Hip +8.5mm 03/23 Offset Taper Latex Free 202533419 - [id number] Implanted:Qty: 1 on 03/18/2022 by Mundo Sanchez MD at [facility] Right: Hip [employer] Inc 03/09/2026 [id number] / / [id number] [employer] G7 64mm Multihole Hip H Hemisphere Offset Shell Acetabular 341463309 - [id number] Implanted:Qty: 1 on 06/20/2022 by Mundo Sanchez MD at [facility] Right: Hip [employer] [id number] 10/27/2031 705620261 / / [id number] [employer] Trilogy 6.5mm 30mm Self Tap Acetabular Cortical Screw Bone 26356835561 - [id number] Implanted:Qty: 1 on 06/20/2022 by Mundo Sanchez MD at [facility] Right: Hip [employer] [id number] 10/23/2031 78717121174 / / [id number] [employer] Trilogy 6.5mm 30mm Self Tap Acetabular Cortical Screw Bone 41865267306 - [id number] Implanted:Qty: 1 on 06/20/2022 by Mundo Sanchez MD at [facility] Right: Hip [employer] [id number] 11/17/2031 73358137581 / / [id number] [employer] G7 40mm Lumen Hip H Liner Acetabular Longevity Sterile Latex Free 69576969 - [id number] Implanted:Qty: 1 on 06/20/2022 by Mundo Sanchez MD at [facility] Right: Hip [employer] [id number] 12/09/2023200909626565 / / [id number] [employer] Trilogy 6.5mm 30mm Self Tap Acetabular Cortical Screw Bone 09424898633 - [id number] Implanted:Qty: 1 on 06/20/2022 by Mundo Sanchez MD at [facility] Right: Hip [employer] [id number] 01/14/2032 48180834040 / / [id number] [employer] Trilogy 6.5mm 15mm Self Tap Screw Bone 96434294818 - [id number] Implanted:Qty: 1 on 06/20/2022 by Mundo Sanchez MD at [facility] Right: Hip [employer] [id number] 02/29/2032 55538019586 / / [id number] [employer] Zhen Sts 20mm 190mm Press Fit Spline Distal Taper Stem Femoral -190044 - [id number] Implanted:Qty: 1 on 06/20/2022 by Mundo Sanchez MD at [facility] Right: Hip [employer] [id number] 10/22/2028150231 / / [id number] [employer] G7 Type 1 Hip -3mm Offset Taper Sleeve Centering Titanium Biolox 650-1065 - [id number] Implanted:Qty: 1 on 06/20/2022 by Mundo Sanchez MD at [facility] Right: Hip [employer] 02/22/2032 650-1065 / / [id number] [employer] G7 40mm Hip Head Femoral Biolox Delta Biolox Option 650-1058 - [id number] Implanted:Qty: 1 on 06/20/2022 by Mundo Sanchez MD at [facility] Right: Hip [employer] 02/22/2032 650-1058 / / [id number] [employer] Zhen 60mm Hip Femoral B High Offset Body Cone Titanium Sterile -640808 - [id number] Implanted:Qty: 1 on 06/20/2022 by Mundo Sanchez MD at [facility] Right: Hip [employer] 04/21/2032668321 / / [id number] Explanted Type Area Dry Paste Supervisor Device Identifier Shelf Expiration Date Model / Serial / Lot Synthes 204.846 3.5mm 6mm 46mm 2.5mm Self Tap Small Hexagonal Socket Low Profile - [id number] Explanted:Qty: 1 on 11/23/2020 at [facility] Synthes I 204.846 / / Synthes 204.890 3.5mm 6mm 90mm 2.5mm Self Tap Small Hexagonal Socket Low Profile - [id number] Explanted:Qty: 1 on 11/23/2020 at [facility] Right: Pelvis Synthes I 204.890 / / Procedures Procedure Name Priority Date/Time Associated Diagnosis Comments PSA SCREEN Routine 11/07/2022 9:03 AM CDT Elevated PSA from Last 3 Months or Most Recently Relevant to Health Maintenance Results * (ABNORMAL) PSA screen (11/07/2022 9:03 AM CDT) PSA 9.4(H) 0.0 - 4.0 ng/mL [facility] - Comment: [place] ECLIA methodology. According to the [employer] [employer], Serum PSA should decrease and [...] - 11/08/2022 4:08 AM CDT Performed at: 01 - [address] [id number] Garden Labourer: Onofre Corral PhD, Phone: [phone] Jake Stoddard IV, MD LAB BLOOD ORDERABLES Sarah keyes Result [facility] - 01 from Last 3 Months or Most Recently Relevant to Health Maintenance [place] [address] MEDICARE [facility] [place] [id number] MEDICARE [facility] MEDICARE [facility] [place] [address] Advance Directives For more information, please contact: [phone] * Full Code (Latest Code Status on File) Date Activated Date Inactivated Comments 06/20/2022 4:01 PM 06/24/2022 4:03 PM * Full Code Date Activated Date Inactivated Comments 03/18/2022 2:51 PM 03/23/2022 8:25 PM * Full Code Date Activated Date Inactivated Comments 11/23/2020 4:34 AM 12/02/2020 10:59 PM Care Teams Line Appliance Assembler Relationship Specialty Start Date End Date Mayra Esqueda PA PCP - General Physician Organizational Development Consultant 06/14/23
--- NOTE | 2024-06-19 17:31 | ED.ARRPALP ---
HPI - Arrhythmia/Palpitations General Chief Complaint: Arrhythmia/Palpitations Stated Complaint: afib attack Time Seen by Provider: 06/19/24 17:03 Source: patient Mode of arrival: ambulatory Limitations: no limitations History of Present Illness HPI narrative: This is a 74-year-old male with PMH of CKD, paroxysmal AFib, HTN, HLD, anemia who presents to the ED for chief complaint of shortness of breath x2 weeks. Patient states that he suspects that he is in AFib which is causing his shortness of breath. States that he also has had a cough with productive white sputum. States he was given amoxicillin for suspected bronchitis this past week. Endorses lightheadedness and dizziness on occasion. Denies lower extremity swelling, palpitations, back pain, numbness, weakness, headache. Per chart review patient was cardioverted in February 2024 for persisting a flutter Related Data Home Medications ?Medication ?Instructions ?Recorded ?Confirmed ?Last Taken ?Type latanoprost 0.005 % eye drops 1 drp EACH EYE HS 11/22/20 02/10/24 02/09/24 20:00 History atorvastatin 10 mg tablet 10 mg PO HS 08/19/22 02/10/24 02/09/24 20:00 History losartan 100 mg tablet 100 mg PO HS 09/11/23 02/10/24 02/09/24 20:00 History polyethylene glycol 3350 17 17 g PO DAILY 11/08/23 02/10/24 02/09/24 08:00 History gram/dose oral powder (Miralax) psyllium husk 3.4 gram/5.4 gram 1 tbsp PO DAILY PRN Constipation 11/08/23 02/10/24 02/08/24 History oral powder (Metamucil) timolol maleate 0.5 % once daily 1 drp EACH EYE BID 02/10/24 02/10/24 02/09/24 20:00 History eye drops Allergies Allergy/AdvReac Type Severity Reaction Status Date / Time No Known Allergies Allergy Verified 06/19/24 14:40 Review of Systems Review of Systems: All systems as dictated in HPI [facility] Past Medical History Medical History Anemia previously contributed to CLAUDIA Atrial flutter with rapid ventricular response Elevated PSA Fecal incontinence Glaucoma Hemorrhoids Hyperlipidemia Hypertension Obesity Paroxysmal atrial flutter 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 Later became infected and had to undergo hardware removal. Then later had to have left total hip replacement. History of vasectomy Status post left foot surgery Family History Family History Mother No pertinent past medical history Cerebrovascular accident Father No pertinent past medical history Cerebrovascular accident Father No problems noted. Social History Social History (Reviewed 02/17/24 @ :43 by Silva Lee PA-C) Smoking status: Never smoker Tobacco type: cigarettes Second hand tobacco smoke exposure: No Alcohol intake: current Drinks per week: 21 Alcohol use details: [place] Substance use: never Substance use type: does not use Do You Feel Safe in your Home?: Yes Lack of Transportation: No Lack of Food: Never True Current Housing: I Have Housing Concerned About Future Housing: No Difficulty Paying Gas/Electric Bills: No Difficulty Paying for Meds: No Currently Unemployed: No Education: Bachelor's Degree Difficulty w/ Childcare or Family Care: No Living arrangements: with family Gender identity (if verbalized by the patient): Male Sexual Orientation (if Verbalized by the Patient): Straight or Heterosexual Spiritual care concerns: No Exam Narrative: GENERAL: Well-appearing, well-nourished, and in no acute distress. HEAD: Normocephalic, atraumatic. EYES: PERRLA and EOMI. ENT: Nares clear, no rhinorrhea or epistaxis. Mucous membranes moist. Oropharynx without tonsillar hypertrophy exudate or other lesions. NECK: Supple. No adenopathy or masses. CHEST: No respiratory distress. Clear to auscultation. No wheezes rales or rhonchi HEART: Regular rate and rhythm. No murmur heard. Normal peripheral pulses. ABDOMEN: Soft, nontender, nondistended, normal active bowel sounds. MSK: Normal range of motion. No edema. SKIN: Warm, dry, no rash. NEURO: Alert and oriented x4. No focal deficits. PSYCH: Normal mood and affect. Course Vital Signs Vital signs: Vital Signs Pulse Rate 67 06/19/24 14:45 Pulse Oximetry 96 06/19/24 14:45 Temperature 97.5 F L 06/19/24 15:02 Pulse Rate 102 H 06/19/24 18:28 Respiratory Rate 16 06/19/24 18:28 Blood Pressure 160/105 H 06/19/24 18:28 Pulse Oximetry 98 06/19/24 18:28 Oxygen Delivery Room Air 06/19/24 15:02 MDM - Arrhythmia/Palpitations MDM Narrative Medical decision making narrative: This is a 74-year-old male who presents to the ED for chief complaint of shortness of breath, cough for the past couple of weeks. [place] that his AFib may be acting up. Vitals are normal. Exam is benign overall. He is in a rate controlled AFib according to EKG with no acute ischemia. Lab work shows negative troponin. BNP slightly elevated at 2590. Clinically is presentation is more consistent with acute cough/bronchitis. He is complaining of productive cough. He was started on amoxicillin previously, and we will add a Z-Enrique today for additional coverage. Chest x-ray shows no acute findings. He does not appear to be an fluid overload from CHF. His oxygen is normal on room air. He is resting comfortably. Patient will be discharged in stable condition. Supportive measures discussed and return precautions given. Patient is understanding and agreeable with plan for discharge with PCP follow-up. Lab Data 06/19/24 17:45 06/19/24 17:45 Labs: Lab Results 06/19/24 Range/Units 17:45 WBC 4.7 (4.5-10.0) K/mm3 RBC 4.05 L (4.6-6.20) M/mm3 Hgb 12.9 L (14.0-18.0) g/dL Hct 38.5 L (42.0-52.0) % MCV 95.1 (80-100) fl MCH 31.9 (26-34) pg MCHC 33.5 (32-36) g/dl RDW 12.5 (11.5-14.5) % Plt Count 230 (150-375) k/mm3 MPV 9.2 (7.4-10.4) fl Immature Gran % (Auto) 1.1 H (0-0.5) % Neut % (Auto) 75.4 H (45.5-73.1) % Lymph % (Auto) 15.2 L (18.3-44.2) % [place] % (Auto) 7.1 (2.6-8.5) % Eos % (Auto) 0.6 (0-4.4) % Baso % (Auto) 0.6 (0.2-1.2) % Lymph # (Auto) 0.71 L (0.9-3.2) K/mm3 [place] # (Auto) 0.3 (0.1-0.6) K/mm3 Eos # (Auto) 0.0 (0-0.3) K/mm3 Baso # (Auto) 0.0 (0.0-0.1) K/mm3 Abs Immat Gran (auto) 0.05 H (0.00-0.031) K/mm3 Absolute Neuts (auto) 3.5 (1.3-6.7) K/mm3 Absolute Nucleated RBC 0.000 (0.0-0.012) K/mm3 Nucleated RBC % 0.0 (0.0-0.2) % Sodium 135 L (137-145) mmol/L Potassium 4.6 (3.4-5.0) mmol/L Chloride 103 (98-107) mmol/L Carbon Dioxide 20 L (22-30) mmol/L Anion Gap 12 (4-12) mmol/L BUN 29 H D (9-20) mg/dL Creatinine 1.40 H (0.7-1.3) mg/dL Estim Creat Clear Calc 58 ml/min Estimated GFR 50 L (59 - ) Glucose 90 (65-110) mg/dL Calcium 9.3 (8.4-10.2) mg/dL Total Bilirubin 1.4 H (0.2-1.3) mg/dL AST 23 (17-59) U/L ALT 16 (6-50) U/L Alkaline Phosphatase 124 (38-126) U/L Troponin I < 0.012 (0.000-0.034) ng/mL NT-Pro-B Natriuret Pep 2590 H (19.9-100) pg/mL Total Protein 7.0 (6.3-8.2) g/dL Albumin 4.0 (3.5-5.1) g/dL Discharge Plan Discharge Clinical Impression: Dyspnea, Cough Patient Disposition: Home, Self-Care Condition: Stable Instructions: Antibiotic Form Additional Instructions: Your exam and imaging today is reassuring overall. Please follow-up with cardiology as scheduled. Please take a Zithromax sent for additional coverage for possible atypical infection. If you have any new or worsening symptoms please return to the ER for further evaluation. Patient Language: Romanian Prescriptions: New azithromycin [Zithromax Z-Enrique] 250 mg tablet See Rx Instructions .ROUTE .COMPLEX Qty: 6 0RF Rx Instructions: For 250 mg dose pack: take 500 mg today (day 1), then 250 mg for 4 days (days 2-5) No Action losartan 100 mg tablet 100 mg PO HS latanoprost 0.005 % Drops 1 drp EACH EYE HS atorvastatin 10 mg tablet 10 mg PO HS polyethylene glycol 3350 [Miralax] 17 gram/dose Powder 17 g PO DAILY Metamucil 3.4 gram/5.4 gram Powder 1 tbsp PO DAILY PRN (Reason: Constipation) Rx Instructions: mix into at least 8 oz of water or juice before administering furosemide 40 mg tablet 40 mg PO DAILY Qty: 30 3RF timolol maleate 0.5 % Drops, Once Daily 1 drp EACH EYE BID ferrous sulfate 325 mg (65 mg iron) Tablet,Delayed Release (Dr/Ec) 325 mg PO DAILY Qty: 30 0RF Eliquis 5 mg Tablet 5 mg PO Q12HR 30 Days Qty: 60 0RF metoprolol tartrate 25 mg Tablet 25 mg PO Q12HR 30 Days Qty: 60 0RF Follow-up/Referrals: Dheeraj,KARL Nunez [Primary Care Provider] - Time of Disposition: 18:42
[2024-06-19 17:50] LABS: Basophils Percent Auto 0.6 % (0.2-1.2); Eosinophils Percent Auto 0.6 % (0-4.4); Hematocrit 38.5 % (42.0-52.0); Hemoglobin 12.9 g/dL (14.0-18.0); Immature Granulocyte Absolute 0.05 K/mm3 (0.00-0.031); Immature Granulocyte Percent A 1.1 % (0-0.5); Lymphocytes Absolute Auto 0.71 K/mm3 (0.9-3.2); Lymphocytes Percent Auto 15.2 % (18.3-44.2); Mean Corpuscular HGB Conc 33.5 g/dl (32-36); Mean Corpuscular Hemoglobin 31.9 pg (26-34); Mean Corpuscular Volume 95.1 fl (80-100); Mean Platelet Volume 9.2 fl (7.4-10.4); Monocytes Absolute Auto 0.3 K/mm3 (0.1-0.6); Monocytes Percent Auto 7.1 % (2.6-8.5); Neutrophils Absolute Auto 3.5 K/mm3 (1.3-6.7); Neutrophils Percent Auto 75.4 % (45.5-73.1); Platelet Count Result 230 k/mm3 (150-375); Red Blood Count 4.05 M/mm3 (4.6-6.20); Red Cell Distribution Width 12.5 % (11.5-14.5); White Blood Count 4.7 K/mm3 (4.5-10.0)
[2024-06-19 18:28] VITALS: BP 160/105; PULSE 102; RESP 16; O2SAT 98
[2024-06-19 18:28] LABS: Alanine Aminotransferase 16 U/L (6-50); Alkaline Phosphatase 124 U/L (38-126); Anion Gap 12 mmol/L (4-12); Aspartate Amino Transferase 23 U/L (17-59); Bilirubin,Total 1.4 mg/dL (0.2-1.3); Blood Urea Nitrogen 29 mg/dL (9-20); Calcium 9.3 mg/dL (8.4-10.2); Carbon Dioxide 20 mmol/L (22-30); Chloride 103 mmol/L (98-107); Estimated CRCL calculation 58 ml/min; Estimated Glomerular Filt Rate 50; Glucose 90 mg/dL (65-110); NT Pro B Type Natriuretic Pept 2590 pg/mL (19.9-100); Potassium 4.6 mmol/L (3.4-5.0); Sodium 135 mmol/L (137-145); Troponin I < 0.012 ng/mL (0.000-0.034)
--- NOTE | 2024-06-19 19:10 | PC.NURSE ---
Pt. standing outside of room asking for d/c paperwork. Refused final set of VS.
--- OUTSIDE RECORDS SUMMARY | 2024-06-19 19:11 | XMS_ITS | Clinical Summary ---
Author Organization [facility] Address [address] [place], [place] [id number] Care Team Providers Care Camp Nurse Name Role Phone Unavailable Primary Care Provider [...]
--- OUTSIDE RECORDS SUMMARY | 2024-06-19 19:12 | XMS_ITS | Referral Summary ---
Author Organization [facility] Address [address] [place] [address] Care Team Providers Care Tire Specialist Name Role Phone Mayra Esqueda Primary Care [...] 0 06/14/2023 Body mass index 40.0-44.9, adult (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 male with [...] and Staphylococcus capitis with long-term antibiotics for [place] joint septic arthritis. Of note patient is [...] (12/02/2021): Added automatically from request for surgery [id number] Post-traumatic osteoarthritis of one hip 08/05/2 022 Overview (11/12/2021): Added automatically from request for surgery [id number] Abnormal finding on thyroid function test 2021 [...] (11/22/2020): Added automatically from request for surgery [id number] Immunizations Immunization Administration Dates Next Due Influenza, [...] often do you attend chur ch or holiness services? Never 06/27/2022 Do you belong to any clubs o r organizations such as islam groups, unions, fraternal or athletic groups, or [...] place to sleep or slept in a nursing home (including now)? No 06/27/2022 Personal Safety Answer Date Recorded Getting School Help Needed Denies 04/20 Sex and Gender Information Value Date Recorded Sex Assigned at Not on file Legal Sex Male 1:33 PM CDT Gender Identity Male 03/06/2021 9:45 AM SUPPLY CHAIN COORDINATOR Sexual Orientation Straight 03/06/2021 9: 45 AM SUPPLY CHAIN COORDINATOR Last Filed Vital Signs Vital Sign Reading Time Taken Comments Blood Pressure 116/74 2024 9:03 AM SUPPLY CHAIN COORDINATOR Pulse 51 2024 9:03 AM SUPPLY CHAIN COORDINATOR Temperature 36.1 C (97 F) 07/04/2022 10:00 AM CDT Respiratory Rate 16 07/04/2022 10:00 AM CDT Oxygen Saturation 96% 2024 9:03 AM SUPPLY CHAIN COORDINATOR Inhaled Oxygen Concentration - - Weight 130.2 kg (287 lb) 2024 9:03 AM SUPPLY CHAIN COORDINATOR Height 182.9 cm (6') 2024 9:03 AM SUPPLY CHAIN COORDINATOR Body Mass Index 38.92 2024 9:03 AM SUPPLY CHAIN COORDINATOR Plan of Treatment Not on file Medical Devices Implanted Type Area Funeral Home Assistant Device Identifier Shelf Expiration Date Model / Serial / Lot [employer] [facility] 2mm Set Hip Cable/Sleeve Orthopedic Vitallium 6704-0-510 - [id number] - [id number] Implanted:Qty: 1 on 06/20/2022 by Mundo Sanchez MD at [facility] Cable Right: Hip [employer] [id number] 08/08/2026 6704-0-510 / [id number] / [id number] [employer] [place] 2mm Set Hip Cable/Sleeve Orthopedic Vitallium 6704-0-510 - [id number] Implanted:Qty: 1 on 06/20/2022 by Mundo Sanchez MD at [facility] Cable Right: Hip [employer] [id number] 04/24/2026 6704-0-510 / / [id number] [employer] [place] 2mm Set Hip Cable/Sleeve Orthopedic Vitallium 6704-0-510 - [id number] Implanted:Qty: 1 on 06/20/2022 by Mundo Sanchez MD at [facility] Cable Right: Hip [employer] [id number] 12/27/2026 6704-0-510 / / [id number] [employer] [place] 2mm Set Hip Cable/Sleeve Orthopedic Vitallium 6704-0-510 - [id number] Implanted:Qty: 1 on 06/20/2022 by Mundo Sanchez MD at [facility] Cable Right: Hip [employer] [id number] 06/12/2023 6704-0-510 / / [id number] Synthes 02.100.208 104x10.1x3.85mm 8 Hole Low Profile Reconstruction Pelvic Wide - [id number] Implanted:Qty: 1 on 11/23/2020 by Magnus Chavez MD at [facility] Plate Right: Pelvis Synthes I 02.100.208 / / Synthes 02.100.210 Plate Wide Angle Loprfl 130mm Ss 3.5mm Screw 10 Hole Recon - [id number] Implanted:Qty: 1 on 11/23/2020 by Magnus Chavez MD at [facility] Plate Right: Pelvis Synthes I 02.100.210 / / Synthes 204.890 3.5mm 6mm 90mm 2.5mm Self Tap Small Hexagonal Socket Low Profile - [id number] Implanted:Qty: 2 on 11/23/2020 by Magnus Chavez MD at [facility] Screw Right: Pelvis Synthes I 204.890 / / Synthes 204.834 3.5mm 6mm 34mm 2.5mm Self Tap Small Hexagonal Socket Low Profile - [id number] Implanted:Qty: 1 on 11/23/2020 by Magnus Chavez MD at [facility] Screw Right: Pelvis Synthes I 204.834 / / Synthes 204.840 3.5mm 6mm 40mm 2.5mm Self Tap Small Hexagonal Socket Low Profile - [id number] Implanted:Qty: 1 on 11/23/2020 by Magnus Chavez MD at [facility] Screw Right: Pelvis Synthes I 204.840 / / Synthes 204.838 3.5mm 6mm 38mm 2.5mm Self Tap Small Hexagonal Socket Low Profile - [id number] Implanted:Qty: 1 on 11/23/2020 by Magnus Chavez MD at [facility] Screw Right: Pelvis Synthes I 204.838 / / Synthes 204.880 3.5mm 6mm 80mm 2.5mm Self Tap Small Hexagonal Socket Low Profile - [id number] Implanted:Qty: 1 on 11/23/2020 by Magnus Chavez MD at [facility] Screw Right: Pelvis Synthes I 204.880 / / Synthes 204.900 3.5mm 6mm 100mm Self Tap Small Hexagonal Socket Cortical Full - [id number] Implanted:Qty: 1 on 11/23/2020 by Magnus Chavez MD at [facility] Screw Right: Pelvis Synthes I 204.900 / / Synthes 204.705 3.5mm 6mm 105mm 2.5mm Self Tap Low Profile Small Hexagonal Socket - [id number] Implanted:Qty: 1 on 11/23/2020 by Magnus Chavez MD at [facility] Right: Pelvis Synthes I 204.705 / / Synthes 204.865 3.5mm 6mm 65mm 2.5mm Self Tap Small Hexagonal Socket Low Profile - [id number] Implanted:Qty: 1 on 11/23/2020 by Magnus Chavez MD at [facility] Right: Pelvis Synthes I 204.865 / / Synthes 204.860 3.5mm 6mm 60mm 2.5mm Self Tap Small Hexagonal Socket Low Profile - [id number] Implanted:Qty: 1 on 11/23/2020 by Magnus Chavez MD at [facility] Right: Pelvis Synthes I 204.860 / / Synthes 204.875 3.5mm 6mm 75mm 2.5mm Self Tap Small Hexagonal Socket Low Profile - [id number] Implanted:Qty: 1 on 11/23/2020 by Magnus Chavez MD at [facility] Right: Pelvis Synthes I 204.875 / / Synthes 204.830 3.5mm 6mm 30mm 2.5mm Self Tap Small Hexagonal Socket Low Profile - [id number] Implanted:Qty: 2 on 11/23/2020 by Magnus Chavez MD at [facility] Synthes I 204.830 / / Synthes 204.846 3.5mm 6mm 46mm 2.5mm Self Tap Small Hexagonal Socket Low Profile - [id number] Implanted:Qty: 1 on 11/23/2020 by Magnus Chavez MD at [facility] Synthes I 204.846 / / [employer] Simplex P Full Dose Radiopaque Preblend Cement Bone Tobramycin 6197-9-001 - [id number] Implanted:Qty: 3 on 03/18/2022 by Mundo Sanchez MD at [facility] Right: Hip [employer] [id number] 07/09/2023 6197-9-001 / / [id number] [employer] Simplex P Full Dose Radiopaque Preblend Cement Bone Tobramycin 6197-9-001 - [id number] Implanted:Qty: 1 on 03/18/2022 by Mundo Sanchez MD at [facility] Right: Hip [employer] 05/10/2023 6197-9-001 / / [id number] [employer] Prostalac 105mm Cemented Extension Hip 1 High Offset Stem Femoral Latex Free 594627050 - [id number] Implanted:Qty: 1 on 03/18/2022 by Mundo Sanchez MD at [facility] Right: Hip [employer] [id number] 09/08/2031 [id number] / / [id number] [employer] [place] 60mm 40mm Hip +4mm Neutral Liner Acetabular Altrx Ld Latex Free [id number] - [id number] Implanted:Qty: 1 on 03/18/2022 by Mundo Sanchez MD at [facility] Right: Hip [employer] [id number] 05/10/2026 459064944 / / [id number] [employer] Articul/Jonah 40mm M Specification Hip +8.5mm 03/23 Offset Taper Latex Free 868877381 - [id number] Implanted:Qty: 1 on 03/18/2022 by Mundo Sanchez MD at [facility] Right: Hip [employer] Inc 03/09/2026 670852905 / / [id number] [employer] G7 64mm Multihole Hip H Hemisphere Offset Shell Acetabular 826304740 - [id number] Implanted:Qty: 1 on 06/20/2022 by Mundo Sanchez MD at [facility] Right: Hip [employer] [id number] 10/27/2031 035573781 / / [id number] [employer] Trilogy 6.5mm 30mm Self Tap Acetabular Cortical Screw Bone 81093147356 - [id number] Implanted:Qty: 1 on 06/20/2022 by Mundo Sanchez MD at [facility] Right: Hip [employer] [id number] 10/23/2031 93795511107 / / [id number] [employer] Trilogy 6.5mm 30mm Self Tap Acetabular Cortical Screw Bone 08562704555 - [id number] Implanted:Qty: 1 on 06/20/2022 by Mundo Sanchez MD at [facility] Right: Hip [employer] [id number] 11/17/2031 00041957247 / / [id number] [employer] G7 40mm Lumen Hip H Liner Acetabular Longevity Sterile Latex Free 77860012 - [id number] Implanted:Qty: 1 on 06/20/2022 by Mundo Sanchez MD at [facility] Right: Hip [employer] [id number] 12/09/2023 79622217 / / [id number] [employer] Trilogy 6.5mm 30mm Self Tap Acetabular Cortical Screw Bone 40072900918 - [id number] Implanted:Qty: 1 on 06/20/2022 by Mundo Sanchez MD at [facility] Right: Hip [employer] [id number] 01/14/2032 28125388182 / / [id number] [employer] Trilogy 6.5mm 15mm Self Tap Screw Bone 27667324113 - [id number] Implanted:Qty: 1 on 06/20/2022 by Mundo Sanchez MD at [facility] Right: Hip [employer] [id number] 02/29/2032 40893642350 / / [id number] [employer] Zhen Sts 20mm 190mm Press Fit Spline Distal Taper Stem Femoral 488945 - [id number] Implanted:Qty: 1 on 06/20/2022 by Mundo Sanchez MD at [facility] Right: Hip [employer] [id number] 10/22/2028207514 / / [id number] [employer] G7 Type 1 Hip -3mm Offset Taper Sleeve Centering Titanium Biolox 650-1065 - [id number] Implanted:Qty: 1 on 06/20/2022 by Mundo Sanchez MD at [facility] Right: Hip [employer] 02/22/2032 650-1065 / / [id number] [employer] G7 40mm Hip Head Femoral Biolox Delta Biolox Option 650-1058 - [id number] Implanted:Qty: 1 on 06/20/2022 by Mundo Sanchez MD at [facility] Right: Hip [employer] 02/22/2032 650-1058 / / [id number] [employer] Zhen 60mm Hip Femoral B High Offset Body Cone Titanium Sterile 11-960883 - [id number] Implanted:Qty: 1 on 06/20/2022 by Mundo Sanchez MD at [facility] Right: Hip [employer] 04/21/2032 [id number] / / [id number] Explanted Type Area Funeral Home Assistant Device Identifier Shelf Expiration Date Model / Serial / Lot Synthes 204.846 3.5mm 6mm 46mm 2.5mm Self Tap Small Hexagonal Socket Low Profile - [id number] Explanted:Qty: 1 on 11/23/2020 at [facility] Synthes I 204.846 / / Synthes 204.890 3.5mm 6mm 90mm 2.5mm Self Tap Small Hexagonal Socket Low Profile - [id number] Explanted:Qty: 1 on 11/23/2020 at [facility] Right: Pelvis Synthes I 204.890 / / Procedures Procedure Name Priority Date/Time Associated Diagnosis Comments PSA SCREEN Routine 11/07/2022 9:03 AM CDT Elevated PSA from Last 3 Months or Most Recently Relevant to Health Maintenance Results * (ABNORMAL) PSA screen (11/07/2022 9:03 AM CDT) [facility] PSA 9.4(H) 0.0 - 4.0 ng/mL [facility] - Comment: [place] ECLIA methodology. According to the [place] [employer], Serum PSA should decrease and [...] - 11/08/2022 4:08 AM CDT Performed at: [address] [id number] Stna: Onofre Corral PhD, Phone: [phone] Jake Stoddard IV, MD LAB BLOOD ORDERABLES Sarah l Result [facility] - 01 from Last 3 Months or Most Recently Relevant to Health Maintenance Insurance MEDICARE [facility] MEDICARE [employer] [place] [employer] MEDICARE [facility] Advance Directives For more information, please contact: [phone] * Full Code (Latest Code Status on File) Date Activated Date Inactivated Comments 06/20/2022 4:01 PM 06/24/2022 4:03 PM * Full Code Date Activated Date Inactivated Comments 03/18/2022 2:51 PM 03/23/2022 8:25 PM * Full Code Date Activated Date Inactivated Comments 11/23/2020 4:34 AM 12/02/2020 10:59 PM Care Teams Tire Specialist Relationship Specialty Start Date End Date Mayra Esqueda PA PCP - General Physician Medical Csr 06/14/23
--- OUTSIDE RECORDS SUMMARY | 2024-06-19 19:12 | XMS_ITS | Clinical Summary ---
Author Organization 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 male with [...] and Staphylococcus capitis with long-term antibiotics for anvik joint septic arthritis. Of note patient is [...] (12/02/2021): Added automatically from request for surgery [id number] Post-traumatic osteoarthritis of one hip 08/05/2 022 Overview (11/12/2021): Added automatically from request for surgery [id number] Abnormal finding on thyroid function test 2021 [...] (11/22/2020): Added automatically from request for surgery [id number] Immunizations Immunization Administration Dates Next Due Influenza, [...] often do you attend chur ch or evangelical services? Never 06/27/2022 Do you belong to any clubs o r organizations such as catholic groups, unions, fraternal or athletic groups, or [...] place to sleep or slept in a longterm (including now)? No 06/27/2022 Personal Safety Answer Date Recorded Getting School Help Needed Denies 04/20 Sex and Gender Information Value Date Recorded Sex Assigned at Not on file Legal Sex Male 1:33 PM CDT Gender Identity Male 03/06/2021 9:45 AM INSIDE ACCOUNT EXECUTIVE Sexual Orientation Straight 03/06/2021 9: 45 AM INSIDE ACCOUNT EXECUTIVE Obstetrics History Last Filed Vital Signs Vital Sign Reading Time Taken Comments Blood Pressure 116/74 2024 9:03 AM INSIDE ACCOUNT EXECUTIVE Pulse 51 2024 9:03 AM INSIDE ACCOUNT EXECUTIVE Temperature 36.1 C (97 F) 07/04/2022 10:00 AM CDT Respiratory Rate 16 07/04/2022 10:00 AM CDT Oxygen Saturation 96% 2024 9:03 AM INSIDE ACCOUNT EXECUTIVE Inhaled Oxygen Concentration - - Weight 130.2 kg (287 lb) 2024 9:03 AM INSIDE ACCOUNT EXECUTIVE Height 182.9 cm (6') 2024 9:03 AM INSIDE ACCOUNT EXECUTIVE Body Mass Index 38.92 2024 9:03 AM INSIDE ACCOUNT EXECUTIVE Plan of Treatment Health Maintenance Due Date [...] 11/07/2022, 01/05/2022 Medical Devices Implanted Type Area Grinder Machine Setter Device Identifier Shelf Expiration Date Model / Serial / Lot [employer] Dall-Miles 2mm Set Hip Cable/Sleeve Orthopedic Vitallium 6704-0-510 - [id number] - [id number] Implanted:Qty: 1 on 06/20/2022 by Mundo Sanchez MD at [facility] Cable Right: Hip [employer] [id number] 08/08/2026 6704-0-510 / [id number] / [id number] [employer] Dall-Miles 2mm Set Hip Cable/Sleeve Orthopedic Vitallium 6704-0-510 - [id number] Implanted:Qty: 1 on 06/20/2022 by Mundo Sanchez MD at [facility] Cable Right: Hip [employer] [id number] 04/24/2026 6704-0-510 / / [id number] [employer] D[employer]-[place]iles 2mm Set Hip Cable/Sleeve Orthopedic Vitallium 6704-0-510 - [id number] Implanted:Qty: 1 on 06/20/2022 by Mundo Sanchez MD at [facility] Cable Right: Hip [employer] [id number] 12/27/2026 6704-0-510 / / [id number] [employer] D[place] 2mm Set Hip Cable/Sleeve Orthopedic Vitallium 6704-0-510 - [id number] Implanted:Qty: 1 on 06/20/2022 by Mundo Sanchez MD at [facility] Cable Right: Hip [employer] [id number] 06/12/2023 6704-0-510 / / [id number] Synthes 02.100.208 104x10.1x3.85mm 8 Hole Low Profile Reconstruction Pelvic Wide - [id number] Implanted:Qty: 1 on 11/23/2020 by Magnus Chavez MD at [facility] Plate Right: Pelvis Synthes I 02.100.208 / / Synthes 02.100.210 Plate Wide Angle Loprfl 130mm Ss 3.5mm Screw 10 Hole Recon - [id number] Implanted:Qty: 1 on 11/23/2020 by Magnus Chavez MD at [facility] Plate Right: Pelvis Synthes I 02.100.210 / / Synthes 204.890 3.5mm 6mm 90mm 2.5mm Self Tap Small Hexagonal Socket Low Profile - [id number] Implanted:Qty: 2 on 11/23/2020 by Magnus Chavez MD at [facility] Screw Right: Pelvis Synthes I 204.890 / / Synthes 204.834 3.5mm 6mm 34mm 2.5mm Self Tap Small Hexagonal Socket Low Profile - [id number] Implanted:Qty: 1 on 11/23/2020 by Magnus Chavez MD at [facility] Screw Right: Pelvis Synthes I 204.834 / / Synthes 204.840 3.5mm 6mm 40mm 2.5mm Self Tap Small Hexagonal Socket Low Profile - [id number] Implanted:Qty: 1 on 11/23/2020 by Magnus Chavez MD at [facility] Screw Right: Pelvis Synthes I 204.840 / / Synthes 204.838 3.5mm 6mm 38mm 2.5mm Self Tap Small Hexagonal Socket Low Profile - [id number] Implanted:Qty: 1 on 11/23/2020 by Magnus Chavez MD at [facility] Screw Right: Pelvis Synthes I 204.838 / / Synthes 204.880 3.5mm 6mm 80mm 2.5mm Self Tap Small Hexagonal Socket Low Profile - [id number] Implanted:Qty: 1 on 11/23/2020 by Magnus Chavez MD at [facility] Screw Right: Pelvis Synthes I 204.880 / / Synthes 204.900 3.5mm 6mm 100mm Self Tap Small Hexagonal Socket Cortical Full - [id number] Implanted:Qty: 1 on 11/23/2020 by Magnus Chavez MD at [facility] Screw Right: Pelvis Synthes I 204.900 / / Synthes 204.705 3.5mm 6mm 105mm 2.5mm Self Tap Low Profile Small Hexagonal Socket - [id number] Implanted:Qty: 1 on 11/23/2020 by Magnus Chavez MD at [facility] Right: Pelvis Synthes I 204.705 / / Synthes 204.865 3.5mm 6mm 65mm 2.5mm Self Tap Small Hexagonal Socket Low Profile - [id number] Implanted:Qty: 1 on 11/23/2020 by Magnus Chavez MD at [facility] Right: Pelvis Synthes I 204.865 / / Synthes 204.860 3.5mm 6mm 60mm 2.5mm Self Tap Small Hexagonal Socket Low Profile - [id number] Implanted:Qty: 1 on 11/23/2020 by Magnus Chavez MD at [facility] Right: Pelvis Synthes I 204.860 / / Synthes 204.875 3.5mm 6mm 75mm 2.5mm Self Tap Small Hexagonal Socket Low Profile - [id number] Implanted:Qty: 1 on 11/23/2020 by Magnus Chavez MD at [facility] Right: Pelvis Synthes I 204.875 / / Synthes 204.830 3.5mm 6mm 30mm 2.5mm Self Tap Small Hexagonal Socket Low Profile - [id number] Implanted:Qty: 2 on 11/23/2020 by Magnus Chavez MD at [facility] Synthes I 204.830 / / Synthes 204.846 3.5mm 6mm 46mm 2.5mm Self Tap Small Hexagonal Socket Low Profile - [id number] Implanted:Qty: 1 on 11/23/2020 by Magnus Chavez MD at [facility] Synthes I 204.846 / / [employer] Simplex P Full Dose Radiopaque Preblend Cement Bone Tobramycin 6197-9-001 - [id number] Implanted:Qty: 3 on 03/18/2022 by Mundo Sanchez MD at [facility] Right: Hip [employer] [id number] 07/09/2023 6197-9-001 / / [id number] [employer] Simplex P Full Dose Radiopaque Preblend Cement Bone Tobramycin 6197-9-001 - [id number] Implanted:Qty: 1 on 03/18/2022 by Mundo Sanchez MD at [facility] Right: Hip [employer] 05/10/2023 6197-9-001 / / [id number] [employer] Prostalac 105mm Cemented Extension Hip 1 High Offset Stem Femoral Latex Free 390704724 - [id number] Implanted:Qty: 1 on 03/18/2022 by Mundo Sanchez MD at [facility] Right: Hip [employer] [id number] 09/08/2031 838203784 / / [id number] [employer] [place] 60mm 40mm Hip +4mm Neutral Liner Acetabular Altrx Ld Latex Free 154171475 - [id number] Implanted:Qty: 1 on 03/18/2022 by Mundo Sanchez MD at [facility] Right: Hip [employer] [id number] 05/10/2026 [id number] / / [id number] [employer] Articul/Jonah 40mm M Specification Hip +8.5mm 03/23 Offset Taper Latex Free 925198709 - [id number] Implanted:Qty: 1 on 03/18/2022 by Mundo Sanchez MD at [facility] Right: Hip [employer] 03/09/2026 [id number] / / [id number] [employer] G7 64mm Multihole Hip H Hemisphere Offset Shell Acetabular 332071175 - [id number] Implanted:Qty: 1 on 06/20/2022 by Mundo Sanchez MD at [facility] Right: Hip [employer] [id number] 10/27/2031 445265962 / / [id number] [employer] Trilogy 6.5mm 30mm Self Tap Acetabular Cortical Screw Bone 23955774175 - [id number] Implanted:Qty: 1 on 06/20/2022 by Mundo Sanchez MD at [facility] Right: Hip [employer] [id number] 10/23/2031 63249387724 / / [id number] [employer] Trilogy 6.5mm 30mm Self Tap Acetabular Cortical Screw Bone 51554890008 - [id number] Implanted:Qty: 1 on 06/20/2022 by Mundo Sanchez MD at [facility] Right: Hip [employer] [id number] 11/17/2031 20532082669 / / [id number] [employer] G7 40mm Lumen Hip H Liner Acetabular Longevity Sterile Latex Free 25999074 - [id number] Implanted:Qty: 1 on 06/20/2022 by Mundo Sanchez MD at [facility] Right: Hip [employer] [id number] 12/09/2023200905855684 / / [id number] [employer] Trilogy 6.5mm 30mm Self Tap Acetabular Cortical Screw Bone 58801440739 - [id number] Implanted:Qty: 1 on 06/20/2022 by Mundo Sanchez MD at [facility] Right: Hip [employer] [id number] 01/14/2032 10039101257 / / [id number] [employer] Trilogy 6.5mm 15mm Self Tap Screw Bone 81822702789 - [id number] Implanted:Qty: 1 on 06/20/2022 by Mundo Sanchez MD at [facility] Right: Hip [employer] [id number] 02/29/2032 49148355850 / / [id number] [employer] Zhen Sts 20mm 190mm Press Fit Spline Distal Taper Stem Femoral -018933 - [id number] Implanted:Qty: 1 on 06/20/2022 by Mundo Sanchez MD at [facility] Right: Hip [employer] [id number] 10/22/2028451611 / / [id number] [employer] G7 Type 1 Hip -3mm Offset Taper Sleeve Centering Titanium Biolox 650-1065 - [id number] Implanted:Qty: 1 on 06/20/2022 by Mundo Sanchez MD at [facility] Right: Hip [employer] 02/22/2032 650-1065 / / [id number] [employer] G7 40mm Hip Head Femoral Biolox Delta Biolox Option 650-1058 - [id number] Implanted:Qty: 1 on 06/20/2022 by Mundo Sanchez MD at [facility] Right: Hip [employer] 02/22/2032 650-1058 / / [id number] [employer] Zhen 60mm Hip Femoral B High Offset Body Cone Titanium Sterile -982528 - [id number] Implanted:Qty: 1 on 06/20/2022 by Mundo Sanchez MD at [facility] Right: Hip [employer] 04/21/2032952727 / / [id number] Explanted Type Area Grinder Machine Setter Device Identifier Shelf Expiration Date Model / Serial / Lot Synthes 204.846 3.5mm 6mm 46mm 2.5mm Self Tap Small Hexagonal Socket Low Profile - [id number] Explanted:Qty: 1 on 11/23/2020 at [facility] Synthes I 204.846 / / Synthes 204.890 3.5mm 6mm 90mm 2.5mm Self Tap Small Hexagonal Socket Low Profile - [id number] Explanted:Qty: 1 on 11/23/2020 at [facility] Right: Pelvis Synthes I 204.890 / / Procedures Procedure Name Priority Date/Time Associated Diagnosis Comments PSA SCREEN Routine 11/07/2022 9:03 AM CDT Elevated PSA from Last 3 Months or Most Recently Relevant to Health Maintenance Results * (ABNORMAL) PSA screen (11/07/2022 9:03 AM CDT) PSA 9.4(H) 0.0 - 4.0 ng/mL [facility] - Comment: Mague ECLIA methodology. According to the [place] [employer], Serum PSA should decrease and [...] 4:08 AM CDT Performed at: 01 - [address] [id number] Log Driver: Onofre Corral PhD, Phone: [phone] Jake Stoddard IV, MD LAB BLOOD ORDERABLES Sarah keyes Result [facility] - 01 from Last 3 Months or Most Recently Relevant to Health Maintenance [place] [address] MEDICARE [place] [id number] [place] [address] Advance Directives For more information, please contact: [phone] * Full Code (Latest Code Status on File) Date Activated Date Inactivated Comments 06/20/2022 4:01 PM 06/24/2022 4:03 PM * Full Code Date Activated Date Inactivated Comments 03/18/2022 2:51 PM 03/23/2022 8:25 PM * Full Code Date Activated Date Inactivated Comments 11/23/2020 4:34 AM 12/02/2020 10:59 PM Care Teams Aircraft Air Conditioning Mechanic Relationship Specialty Start Date End Date Mayra Esqueda PA PCP - General Physician Staff Climate Scientist 06/14/23
== END 2024-06-19 19:18 | disposition home or self-care (01) ==
PROVIDERS: Emergency Provider Physician Assistant; PCP Physician Assistant
DX: R06.00 Dyspnea, unspecified (principal); R05.9 Cough, unspecified; I12.9 Hypertensive chronic kidney disease with stage 1 through stage 4 chronic kidney disease, or unspecified chronic kidney disease; N18.9 Chronic kidney disease, unspecified; I48.91 Unspecified atrial fibrillation; I48.92 Unspecified atrial flutter; E78.5 Hyperlipidemia, unspecified; D64.9 Anemia, unspecified; H40.9 Unspecified glaucoma; Z85.828 Personal history of other malignant neoplasm of skin; Z79.01 Long term (current) use of anticoagulants; Z79.899 Other long term (current) drug therapy
CPT/HCPCS: 36415; 71045; 80053; 83880; 84484; 85025; 93005; 99284

== ENCOUNTER 2025-02-19 08:18 | Outpatient (CLI) | payer MEDICARE, OTHER, SELFPAY ==
--- NOTE | ~2025-02-19 | MMUS_ITS ---
EXAMINATION: MM diagnostic westley BI w mukesh, US breast LT limited HISTORY: Lump right breast TECHNIQUE: Additional 3-D tomosynthesis images of the breasts were performed and synthetic 2-D images were generated. CAD analysis was submitted and interpreted. High resolution Limited left breast ultrasound was performed. COMPARISON: None BREAST PARENCHYMAL COMPOSITION: Not Dense: The breasts are almost entirely fatty. FINDINGS: MAMMOGRAPHIC FINDINGS: There is bilateral asymmetric gynecomastia, left greater than right. No suspicious masses or architectural distortion. There are no abnormal clustered calcifications. ULTRASOUND: Limited left breast ultrasound: No suspicious masses or calcifications. Heterogeneous hypoechoic soft tissue present within the periareolar location consistent with normal parenchyma.. IMPRESSION: 1. Benign bilateral asymmetric gynecomastia without suspicious masses to suggest malignancy. 2. Recommend follow-up clinical management for gynecomastia. BI-RADS Category 2: Benign finding(s). Reviewed, dictated and finalized at location B. 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 Benign bilateral asymmetric gynecomastia without suspicious masses to sugges t malignancy. 2. Recommend follow-up clinical management for gynecomastia. BI-RADS Category 2: Benign finding(s).
--- NOTE | ~2025-02-19 | US_ITS ---
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 Findings: KIDNEYS: The renal cortices are thinned and echogenic, there are no solid masses, cysts or calculi, no hydronephrosis. Right Kidney: Right kidney 9.1 x 5.5 x 5 cm. Left Kidney: Left kidney 6.7 x 3.7 x 3.2 cm. Bladder: The bladder is unremarkable. . Impression: 1. Medical renal disease. No obstruction Reviewed, dictated and finalized at location P. NICAL TRAINING INSTRUCTOR Impression: 1. Medical renal disease. No obstruction
== END 2025-02-19 08:19 | disposition home or self-care (01) ==
LOC: MICIMG 08:20
PROVIDERS: PCP Physician Assistant; Visit Provider Physician Assistant
DX: N63.20 Unspecified lump in the left breast, unspecified quadrant (principal); N63.15 Unspecified lump in the right breast, overlapping quadrants; N18.9 Chronic kidney disease, unspecified; R92.8 Other abnormal and inconclusive findings on diagnostic imaging of breast
CPT/HCPCS: 76642; 76770; 77062; 77066; G0279